=== PATIENT | male | born 1935 | race Caucasian/White ===

== ENCOUNTER 2017-08-20 14:26 | Inpatient (IN) | payer MEDICARE, BC ==
[~2017-08-20] VITALS: Ht 170.2 cm; Wt 76.4 kg
--- NOTE | 2017-08-20 15:10 | PHYS DOC ---
Past History Past Medical History: Hypertension, Other Past Surgical History: Other Alcohol Use: None Drug Use: None Adult General Chief Complaint Chief Complaint: PSYCH EVALUATION HPI HPI Patient is a 82 year old M who presents with paranoia. Victor M has a history of Alzheimer's. He states that he cannot stand thousand on the night. States that he will walk without assistance when he has to do. His called his primary care doctor's office today who advised him to come to the emergency room. He denies any other symptoms at this time. He has no other exacerbating or relieving factors. Review of Systems Review of Systems Constitutional: Denies fever or chills [] Eyes: Denies change in visual acuity, redness, or eye pain [] HENT: Denies nasal congestion or sore throat [] Respiratory: Denies cough or shortness of breath [] Cardiovascular: No additional information not addressed in HPI [] GI: Denies abdominal pain, nausea, vomiting, bloody stools or diarrhea [] : Denies dysuria or hematuria [] Musculoskeletal: Denies back pain or joint pain [] Integument: Denies rash or skin lesions [] Neurologic: Denies headache, focal weakness or sensory changes [] Endocrine: Denies polyuria or polydipsia [] All other systems were reviewed and found to be within normal limits, except as documented in this note. Family History Family History No pertinent family medical history was reported Current Medications Current Medications Current medications were reviewed Allergies Allergies No known allergies Physical Exam Physical Exam Constitutional: Well developed, well nourished, no acute distress, non-toxic appearance. [] HENT: Normocephalic, atraumatic Eyes: EOMI, conjunctiva normal, no discharge. [] Neck: Normal range of motion, no tenderness, supple, no stridor. [] Cardiovascular:Heart rate regular rhythm, Lungs & Thorax: Bilateral breath sounds clear to auscultation [] Abdomen: Bowel sounds normal, soft, no tenderness, no masses, no pulsatile masses. [] Skin: Warm, dry, no erythema, no rash. [] Back: No tenderness, no CVA tenderness. [] Extremities: No tenderness, no cyanosis, no clubbing, ROM intact, no edema. [] Neurologic: normal motor function, normal sensory function, no focal deficits noted. [] Psychologic: Deferred psychiatric evaluation Current Patient Data Vital Signs Vital Signs Date Time Temp Pulse Resp B/P (MAP) Pulse Ox O2 Delivery O2 Flow Rate FiO2 08/20/17 14:46 97.7 82 16 100 Room Air Lab Results Laboratory Tests Test 08/20/17 15:03 White Blood Count 9.4 x10^3/uL (4.0-11.0) Red Blood Count 4.66 x10^6/uL (4.30-5.70) Hemoglobin 13.6 g/dL (13.0-17.5) Hematocrit 42.1 % (39.0-53.0) Mean Corpuscular Volume 90 fL (79-100) Mean Corpuscular Hemoglobin 29 pg (25-35) Mean Corpuscular Hemoglobin Concent 32 g/dL (31-37) Red Cell Distribution Width 16.3 % (11.5-14.5) Platelet Count 399 x10^3/uL (140-400) Neutrophils (%) (Auto) 57 % (31-73) Lymphocytes (%) (Auto) 26 % (24-48) Monocytes (%) (Auto) 10 % (0-9) Eosinophils (%) (Auto) 6 % (0-3) Basophils (%) (Auto) 1 % (0-3) Neutrophils # (Auto) 5.3 x10^3uL (1.8-7.7) Lymphocytes # (Auto) 2.5 x10^3/uL (1.0-4.8) Monocytes # (Auto) 1.0 x10^3/uL (0.0-1.1) Eosinophils # (Auto) 0.6 x10^3/uL (0.0-0.7) Basophils # (Auto) 0.1 x10^3/uL (0.0-0.2) Sodium Level 144 mmol/L (136-145) Potassium Level 4.1 mmol/L (3.5-5.1) Chloride Level 109 mmol/L (98-107) Carbon Dioxide Level 31 mmol/L (21-32) Anion Gap 4 (6-14) Blood Urea Nitrogen 20 mg/dL (8-26) Creatinine 1.1 mg/dL (0.7-1.3) Estimated GFR (Cockcroft-Gault) 64.1 Glucose Level 81 mg/dL (70-99) Calcium Level 8.6 mg/dL (8.5-10.1) Magnesium Level 2.2 mg/dL (1.8-2.4) EKG EKG Normal sinus rhythm Radiology/Procedures Radiology/Procedures [] Course & Med Decision Making Course & Med Decision Making Pertinent Labs and Imaging studies reviewed. (See chart for details) [] Dragon Disclaimer Dragon Disclaimer This electronic medical record was generated, in whole or in part, using a voice recognition dictation system. Departure Departure: Impression: Primary Impression: Encounter for medical screening examination Disposition: ADMITTED INPATIENT Condition: STABLE Referrals: NON,STAFF (PCP) BRIAN ARANGO MD Aug 20, 2017 15:10
[2017-08-20 15:22] LABS: BASO # 0.1 x10^3/uL (0.0-0.2); BASO % 1 % (0-3); EOS # 0.6 x10^3/uL (0.0-0.7); EOS % 6 % (0-3); HEMATOCRIT 42.1 % (39.0-53.0); HEMOGLOBIN 13.6 g/dL (13.0-17.5); LYMPH # 2.5 x10^3/uL (1.0-4.8); LYMPH % 26 % (24-48); MEAN CORPUSCULAR HEMOGLOBIN 29 pg (25-35); MEAN CORPUSCULAR HGB CONC 32 g/dL (31-37); MEAN CORPUSCULAR VOLUME 90 fL (79-100); MONO % 10 % (0-9); NEUT # 5.3 x10^3uL (1.8-7.7); NEUT % 57 % (31-73); PLATELET COUNT 399 x10^3/uL (140-400); RED BLOOD COUNT 4.66 x10^6/uL (4.30-5.70); RED CELL DISTRIBUTION WIDTH 16.3 % (11.5-14.5); WHITE BLOOD COUNT 9.4 x10^3/uL (4.0-11.0)
[2017-08-20 15:28] LABS: CALCIUM 8.6 mg/dL (8.5-10.1); CREATININE 1.1 mg/dL (0.7-1.3); GFR 64.1; MAGNESIUM 2.2 mg/dL (1.8-2.4); POTASSIUM 4.1 mmol/L (3.5-5.1)
--- NOTE | 2017-08-20 16:02 | EKG ---
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
[2017-08-20 17:39] LABS: AMPHETAMINE/METHAMPHETAMINE NEG (NEG); BARBITURATES NEG (NEG); BENZODIAZEPINES POS (NEG); CANNABINOIDS NEG (NEG); COCAINE NEG (NEG); METHADONE NEG (NEG); OPIATES POS (NEG); PHENCYCLIDINE NEG (NEG)
[2017-08-20 17:50] LABS: BACTERIA,URINE 0 /HPF (0-FEW); BILIRUBIN,URINE NEG (NEG); CLARITY,URINE CLEAR; COLOR,URINE YELLOW; GLUCOSE,URINE NEG (NEG); NITRITE,URINE NEG (NEG); RBC,URINE 0 /HPF (0-2); UROBILINOGEN,URINE 0.2 mg/dL (0.2 mg/dL); WBC,URINE OCC /HPF (0-4)
[2017-08-20 17:51] LABS: SQUAMOUS EPITHELIAL CELL,UR OCC /LPF
[2017-08-20] MEDS ORDERED: MAGNESIUM HYDROXIDE 2,400 MG/30 ML ORAL.SUSP. PO PRN (18:30)
[2017-08-20] MEDS ORDERED: MAG HYDROX/AL HYDROX/SIMETH 30 ML ORAL.SUSP PO PRN (18:30)
[2017-08-20 18:33] VITALS: BP 156/82
[2017-08-20 18:58] LABS: ALBUMIN 3.5 g/dL (3.4-5.0); ALBUMIN/GLOBULIN RATIO 0.9 (1.0-1.7); CALCIUM 8.6 mg/dL (8.5-10.1); CREATININE 1.1 mg/dL (0.7-1.3); GFR 64.1; POTASSIUM 4.1 mmol/L (3.5-5.1); TOTAL BILIRUBIN 0.3 mg/dL (0.2-1.0); TOTAL PROTEIN 7.4 g/dL (6.4-8.2)
--- NOTE | 2017-08-20 20:08 | PDOC ---
Exam Note: Chris Note: Please also refer to the separate dictated note~for this date of service dictated separately.~Patient seen individually. Discussed the patient with Nursing staff reviewed the chart.~Reviewed interim history and current functioning. Reviewed vital signs,~Labs/ Radiology~and current medications noted below. Continue current treatment with the changes noted in the dictated addendum note Assessment: Vital Signs: Vital Signs Date Time Temp Pulse Resp B/P (MAP) Pulse Ox O2 Delivery O2 Flow Rate FiO2 08/20/17 18:33 97.7 62 18 156/82 (106) 99 Room Air Labs: Laboratory Tests Test 08/20/17 15:03 08/20/17 16:20 White Blood Count 9.4 x10^3/uL (4.0-11.0) Red Blood Count 4.66 x10^6/uL (4.30-5.70) Hemoglobin 13.6 g/dL (13.0-17.5) Hematocrit 42.1 % (39.0-53.0) Mean Corpuscular Volume 90 fL (79-100) Mean Corpuscular Hemoglobin 29 pg (25-35) Mean Corpuscular Hemoglobin Concent 32 g/dL (31-37) Red Cell Distribution Width 16.3 % (11.5-14.5) H Platelet Count 399 x10^3/uL (140-400) Neutrophils (%) (Auto) 57 % (31-73) Lymphocytes (%) (Auto) 26 % (24-48) Monocytes (%) (Auto) 10 % (0-9) H Eosinophils (%) (Auto) 6 % (0-3) H Basophils (%) (Auto) 1 % (0-3) Neutrophils # (Auto) 5.3 x10^3uL (1.8-7.7) Lymphocytes # (Auto) 2.5 x10^3/uL (1.0-4.8) Monocytes # (Auto) 1.0 x10^3/uL (0.0-1.1) Eosinophils # (Auto) 0.6 x10^3/uL (0.0-0.7) Basophils # (Auto) 0.1 x10^3/uL (0.0-0.2) Sodium Level 144 mmol/L (136-145) Potassium Level 4.1 mmol/L (3.5-5.1) Chloride Level 108 mmol/L (98-107) H Carbon Dioxide Level 30 mmol/L (21-32) Anion Gap 6 (6-14) Blood Urea Nitrogen 20 mg/dL (8-26) Creatinine 1.1 mg/dL (0.7-1.3) Estimated GFR (Cockcroft-Gault) 64.1 BUN/Creatinine Ratio 18 (6-20) Glucose Level 81 mg/dL (70-99) Calcium Level 8.6 mg/dL (8.5-10.1) Magnesium Level 2.2 mg/dL (1.8-2.4) Total Bilirubin 0.3 mg/dL (0.2-1.0) Aspartate Amino Transferase (AST) 28 U/L (15-37) Alanine Aminotransferase (ALT) 27 U/L (16-63) Alkaline Phosphatase 75 U/L (46-116) Total Protein 7.4 g/dL (6.4-8.2) Albumin 3.5 g/dL (3.4-5.0) Albumin/Globulin Ratio 0.9 (1.0-1.7) L Urine Collection Type Unknown Urine Color Yellow Urine Clarity Clear Urine pH 5.5 Urine Specific [place] >=1.030 Urine Protein Neg (NEG-TRACE) Urine Glucose (UA) Neg mg/dL (NEG) Urine Ketones (Stick) Trace mg/dL (NEG) Urine Blood Neg (NEG) Urine Nitrite Neg (NEG) Urine Bilirubin Neg (NEG) Urine Urobilinogen Dipstick 0.2 mg/dL (0.2 mg/dL) Urine Leukocyte Esterase Neg (NEG) Urine RBC 0 /HPF (0-2) Urine WBC Occ /HPF (0-4) Urine Squamous Epithelial Cells Occ /LPF Urine Bacteria 0 /HPF (0-FEW) Urine Opiates Screen Pos (NEG) Urine Methadone Screen Neg (NEG) Urine Barbiturates Neg (NEG) Urine Phencyclidine Screen Neg (NEG) Urine Amphetamine/Methamphetamine Neg (NEG) Urine Benzodiazepines Screen Pos (NEG) Urine Cocaine Screen Neg (NEG) Urine Cannabinoids Screen Neg (NEG) Urine Ethyl Alcohol Neg (NEG) Current Medications: Meds: Current Medications Acetaminophen (Tylenol) 650 mg PRN Q6HRS PRN PO PAIN / TEMP; Start 08/20/17 at 18:30 Al Hydroxide/Mg Hydroxide (Mylanta Plus Xs) 15 ml PRN AFTMEALHC PRN PO DYSPEPSIA; Start 08/20/17 at 18:30 Magnesium Hydroxide (Milk Of Magnesia) 2,400 mg PRN QHS PRN PO CONSTIPATION; Start 08/20/17 at 18:30 I have reviewed the current psychotropics carefully including drug interactions. Risk benefit ratio favors no change other than as noted in my dictated progress note. Diagnosis: Problems: (1) Encounter for medical screening examination (2) Delusion (3) Confusion (4) Suicidal ideation KRYSTAL HAHN MD Aug 20, 2017 20:08
[2017-08-20] MEDS ORDERED: RIVA10TA PO (20:27)
[2017-08-20] MEDS ORDERED: CHOL2000 PO (20:27)
[2017-08-20] MEDS ORDERED: HYDR-2762 PO (20:27)
[2017-08-20] MEDS ORDERED: QUET25TA5 PO (20:27)
[2017-08-20] MEDS ORDERED: LOSA25TA4 PO (20:27)
[2017-08-20] MEDS ORDERED: VITA200T6 PO (20:27)
[2017-08-20] MEDS ORDERED: RIVA1PAT23 TD (20:27)
[2017-08-20] MEDS ORDERED: METO25TA4 PO (20:27)
[2017-08-20] MEDS ORDERED: IBUP400T18 PO (20:27)
[2017-08-20] MEDS ORDERED: MEMA10TA PO (20:27)
[2017-08-20] MEDS ORDERED: LATA2.5D2 OU (20:27)
[2017-08-20] MEDS ORDERED: ALBU2.5V5 NEB (20:27)
[2017-08-20] MEDS ORDERED: ASPI-630 PO (20:27)
[2017-08-20] MEDS ORDERED: DIAZ2TAB3 PO (20:35)
[2017-08-20] MEDS ORDERED: ALBUTEROL SULFATE 2.5 MG/3 ML NEBU. NEB PRN (21:15)
[2017-08-20] MEDS: IBUPROFEN 200 MG TABLET PO SCH ×2 (22:00→22:26)
[2017-08-20] MEDS: QUEtiapine 25 MG TABLET. PO PRN (22:26)
[2017-08-21 02:08] LABS: T3 TOTAL 126 ng/dL (71-180); THYROXINE 5.7 ug/dL (4.5-12.0)
[2017-08-21 06:07] VITALS: BP 110/58
[2017-08-21 06:09] LABS: HEMOGLOBIN A1C 5.1 % (4.8-5.6)
[2017-08-21] MEDS: RIVAROXABAN 10 MG TABLET. PO SCH (07:59)
[2017-08-21] MEDS: LOSARTAN 25 MG TABLET. PO SCH (07:59)
[2017-08-21] MEDS: CHOLECALCIFEROL (VITAMIN D3) 1,000 UNIT TABLET PO SCH (07:59)
[2017-08-21] MEDS: ASPIRIN 81 MG TAB.CHEW PO SCH (07:59)
[2017-08-21] MEDS: RIVASTIGMINE 9.5MG PATCH. TD SCH (08:00)
[2017-08-21] MEDS: MEMANTINE 10 MG TABLET. PO SCH (08:00)
[2017-08-21] MEDS: IBUPROFEN 200 MG TABLET PO SCH ×2 (08:00→20:44)
[2017-08-21] MEDS: METOPROLOL TART IMMED RELEASE 25 MG TABLET PO SCH (08:00)
[2017-08-21] MEDS: LATANOPROST 0.005% OPHTH SOLUTION 2.5ML BOTTLE. OU SCH ×2 (08:01→20:41)
[2017-08-21 10:35] LABS: THYROID STIM HORMONE (TSH) 2.388 uIU/mL (0.358-3.740)
[2017-08-21] MEDS: VITAMIN E 200 UNIT CAPSULE. PO SCH (12:36)
[2017-08-21] MEDS ORDERED: diazePAM 2 MG TABLET PO SCH (14:00)
[2017-08-21 15:46] VITALS: BP 125/71
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
--- NOTE | 2017-08-21 20:06 | PDOC ---
Exam Note: Chris Note: Please also refer to the separate dictated note~for this date of service dictated separately.~Patient seen individually. Discussed the patient with Nursing staff reviewed the chart.~Reviewed interim history and current functioning. Reviewed vital signs,~Labs/ Radiology~and current medications noted below. Continue current treatment with the changes noted in the dictated addendum note Assessment: Vital Signs: Vital Signs Date Time Temp Pulse Resp B/P (MAP) Pulse Ox O2 Delivery O2 Flow Rate FiO2 08/21/17 15:46 98.3 94 20 125/71 (89) 95 08/20/17 18:33 Room Air I&O Intake and Output 08/21/17 07:00 Intake Total 120 ml Balance 120 ml Intake Oral 120 ml Current Medications: Meds: Current Medications Acetaminophen (Tylenol) 650 mg PRN Q6HRS PRN PO PAIN / TEMP; Start 08/20/17 at 18:30 Al Hydroxide/Mg Hydroxide (Mylanta Plus Xs) 15 ml PRN AFTMEALHC PRN PO DYSPEPSIA; Start 08/20/17 at 18:30 Magnesium Hydroxide (Milk Of Magnesia) 2,400 mg PRN QHS PRN PO CONSTIPATION; Start 08/20/17 at 18:30 Albuterol Sulfate (Ventolin) 2.5 mg PRN DAILY PRN NEB SHORTNESS OF BREATH; Start 08/20/17 at 21:15 Aspirin (Children'S Aspirin) 81 mg DAILY PO Last administered on 08/21/17at 07: 59; Start 08/21/17 at 09:00 Acetaminophen/ Hydrocodone Bitart (Lortab 7.5/325) 1 tab PRN TID PRN PO PAIN; Start 08/20/17 at 21:15 Ibuprofen (Motrin) 200 mg BID PO ; Start 08/20/17 at 22:00 Latanoprost (Xalatan) 1 drop DAILY OU Last administered on 08/21/17at 08:01; Start 08/21/17 at 09:00 Losartan Potassium (Cozaar) 25 mg DAILY PO ; Start 08/21/17 at 09:00 Metoprolol Tartrate (Lopressor) 25 mg DAILY PO ; Start 08/21/17 at 09:00 Rivaroxaban (Xarelto) 20 mg DAILY PO Last administered on 08/21/17at 07:59; Start 08/21/17 at 09:00 Rivastigmine (Exelon) 1 patch DAILY TD Last administered on 08/21/17at 08:00; Start 08/21/17 at 09:00 Vitamin D (Vitamin D3) 2,000 unit DAILY PO Last administered on 08/21/17at 07:59 ; Start 08/21/17 at 09:00 Vitamin E 200 unit DAILY PO Last administered on 08/21/17at 12:36; Start at 09:00 Memantine (Namenda) 10 mg DAILY PO Last administered on 08/21/17at 08:00; Start 08/21/17 at 09:00 Quetiapine Fumarate (SEROquel) 25 mg PRN QHS PRN PO INSOMNIA Last administered on 08/20/17at 22:26; Start 08/20/17 at 21:30 Diazepam (Valium) 1.5 mg TID PO Last administered on 08/21/17at 14:06; Start at 14:00; Stop 08/21/17 at 18:51; Status DC Diazepam (Valium) 1 mg TID PO ; Start 08/26/17 at 09:00; Stop 08/26/17 at 09:00 ; Status DC Diazepam (Valium) 0.5 mg TID PO ; Start 08/31/17 at 09:00; Stop 08/31/17 at 09: 00; Status DC Mirtazapine (Remeron) 7.5 mg QHS PO ; Start 08/21/17 at 21:00 Diazepam (Valium) 2 mg BID@1400,2100 PO ; Start 08/21/17 at 21:00 Diazepam (Valium) 1.5 mg DAILYWBKFT PO ; Start 08/22/17 at 08:00; Stop 08/27/17 at 07:59 Active Scripts Active Reported Diazepam 2 Mg Tablet 2 Mg PO TID Xarelto (Rivaroxaban) 10 Mg Tablet 20 Mg PO DAILY Vitamin E (Vitamin E Mixed) 200 Unit Tablet 200 Unit PO DAILY Vitamin D (Cholecalciferol (Vitamin D3)) 2,000 Unit Capsule 2,000 Unit PO DAILY Seroquel (Quetiapine Fumarate) 25 Mg Tablet 25 Mg PO PRN QHS PRN Hydrocodone-Apap 7.5-325 (Hydrocodone Bit/Acetaminophen) 1 Each Tablet 1 Tab PO TID PRN EXELON 9.5mg/24hr (Rivastigmine) 1 Each Patch.td24 1 Patch TD DAILY Namenda (Memantine Hcl) 10 Mg Tablet 10 Mg PO DAILY Metoprolol Tartrate 25 Mg Tablet 25 Mg PO DAILY Losartan Potassium 25 Mg Tablet 25 Mg PO DAILY Xalatan (Latanoprost) 2.5 Ml Drops 1 Drp OU DAILY Ibuprofen 400 Mg Tablet 200 Mg PO BID Aspirin 81 Mg Tab.chew 81 Mg PO DAILY Albuterol Sulfate Neb Soln (Albuterol Sulfate) 2.5 Mg/3 Ml Vial.neb 2.5 Mg NEB PRN DAILY PRN I have reviewed the current psychotropics carefully including drug interactions. Risk benefit ratio favors no change other than as noted in my dictated progress note. 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
[2017-08-21] MEDS: diazePAM 2 MG TABLET PO SCH (20:43)
[2017-08-21] MEDS ORDERED: MIRTAZAPINE 7.5 MG TABLET. PO SCH (21:00)
[2017-08-22 05:48] VITALS: BP 129/65
[2017-08-22] MEDS: RIVASTIGMINE 9.5MG PATCH. TD SCH (07:53)
[2017-08-22] MEDS: IBUPROFEN 200 MG TABLET PO SCH ×2 (07:54→20:09)
[2017-08-22] MEDS: RIVAROXABAN 10 MG TABLET. PO SCH (07:54)
[2017-08-22] MEDS: ASPIRIN 81 MG TAB.CHEW PO SCH (07:54)
[2017-08-22] MEDS: CHOLECALCIFEROL (VITAMIN D3) 1,000 UNIT TABLET PO SCH (07:55)
[2017-08-22] MEDS: LOSARTAN 25 MG TABLET. PO SCH (07:55)
[2017-08-22] MEDS: METOPROLOL TART IMMED RELEASE 25 MG TABLET PO SCH (07:55)
[2017-08-22] MEDS: VITAMIN E 200 UNIT CAPSULE. PO SCH (07:55)
[2017-08-22] MEDS: MEMANTINE 10 MG TABLET. PO SCH (07:55)
[2017-08-22] MEDS: LATANOPROST 0.005% OPHTH SOLUTION 2.5ML BOTTLE. OU SCH (07:56)
[2017-08-22] MEDS: diazePAM 2 MG TABLET PO SCH ×3 (07:58→20:01)
[2017-08-22 16:47] VITALS: BP 119/80
--- NOTE | 2017-08-22 19:52 | PDOC ---
Exam Note: Chris Note: Please also refer to the separate dictated note~for this date of service dictated separately.~Patient seen individually. Discussed the patient with Nursing staff reviewed the chart.~Reviewed interim history and current functioning. Reviewed vital signs,~Labs/ Radiology~and current medications noted below. Continue current treatment with the changes noted in the dictated addendum note Assessment: Vital Signs: Vital Signs Date Time Temp Pulse Resp B/P (MAP) Pulse Ox O2 Delivery O2 Flow Rate FiO2 08/22/17 16:47 99.4 97 20 119/80 (93) 95 08/20/17 18:33 Room Air I&O Intake and Output 08/22/17 07:00 Intake Total 360 ml Balance 360 ml Intake Oral 360 ml Current Medications: Meds: Current Medications Acetaminophen (Tylenol) 650 mg PRN Q6HRS PRN PO PAIN / TEMP; Start 08/20/17 at 18:30 Al Hydroxide/Mg Hydroxide (Mylanta Plus Xs) 15 ml PRN AFTMEALHC PRN PO DYSPEPSIA; Start 08/20/17 at 18:30 Magnesium Hydroxide (Milk Of Magnesia) 2,400 mg PRN QHS PRN PO CONSTIPATION; Start 08/20/17 at 18:30 Albuterol Sulfate (Ventolin) 2.5 mg PRN DAILY PRN NEB SHORTNESS OF BREATH; Start 08/20/17 at 21:15 Aspirin (Children'S Aspirin) 81 mg DAILY PO Last administered on 08/22/17at 07: 54; Start 08/21/17 at 09:00 Acetaminophen/ Hydrocodone Bitart (Lortab 7.5/325) 1 tab PRN TID PRN PO PAIN; Start 08/20/17 at 21:15 Ibuprofen (Motrin) 200 mg BID PO Last administered on 08/22/17at 07:54; Start at 22:00 Latanoprost (Xalatan) 1 drop DAILY OU Last administered on 08/22/17at 07:56; Start 08/21/17 at 09:00 Losartan Potassium (Cozaar) 25 mg DAILY PO ; Start 08/21/17 at 09:00 Metoprolol Tartrate (Lopressor) 25 mg DAILY PO ; Start 08/21/17 at 09:00 Rivaroxaban (Xarelto) 20 mg DAILY PO Last administered on 08/22/17at 07:54; Start 08/21/17 at 09:00 Rivastigmine (Exelon) 1 patch DAILY TD Last administered on 08/22/17at 07:53; Start 08/21/17 at 09:00 Vitamin D (Vitamin D3) 2,000 unit DAILY PO Last administered on 08/22/17at 07:55 ; Start 08/21/17 at 09:00 Vitamin E 200 unit DAILY PO Last administered on 08/22/17at 07:55; Start at 09:00 Memantine (Namenda) 10 mg DAILY PO Last administered on 08/22/17at 07:55; Start 08/21/17 at 09:00 Quetiapine Fumarate (SEROquel) 25 mg PRN QHS PRN PO INSOMNIA Last administered on 08/20/17at 22:26; Start 08/20/17 at 21:30 Diazepam (Valium) 1.5 mg TID PO Last administered on 08/21/17at 14:06; Start at 14:00; Stop 08/21/17 at 18:51; Status DC Diazepam (Valium) 1 mg TID PO ; Start 08/26/17 at 09:00; Stop 08/26/17 at 09:00 ; Status DC Diazepam (Valium) 0.5 mg TID PO ; Start 08/31/17 at 09:00; Stop 08/31/17 at 09: 00; Status DC Mirtazapine (Remeron) 7.5 mg QHS PO Last administered on 08/21/17at 20:43; Start 08/21/17 at 21:00; Stop 08/22/17 at 18:32; Status DC Diazepam (Valium) 2 mg BID@1400,2100 PO Last administered on 08/22/17at 14:05; Start 08/21/17 at 21:00; Stop 08/27/17 at 09:00 Diazepam (Valium) 1.5 mg DAILYWBKFT PO Last administered on 08/22/17at 07:58; Start 08/22/17 at 08:00; Stop 08/27/17 at 07:59 Diazepam (Valium) 1.5 mg BID92 PO ; Start 08/27/17 at 09:00; Stop 09/01/17 at 08 :59 Diazepam (Valium) 2 mg QHS PO ; Start 08/27/17 at 21:00; Stop 09/01/17 at 20:59 Mirtazapine (Remeron) 15 mg QHS PO ; Start 08/22/17 at 21:00 Quetiapine Fumarate (SEROquel) 12.5 mg TID@0900,1300,1700 PO ; Start 08/23/17 at 09:00 Melatonin 3 mg QHS PO ; Start 08/22/17 at 21:00 Olanzapine (ZyPREXA ZYDIS) 2.5 mg PRN Q2HR PRN PO ANXIETY / AGITATION; Start at 18:30 Active Scripts Active Reported Diazepam 2 Mg Tablet 2 Mg PO TID Xarelto (Rivaroxaban) 10 Mg Tablet 20 Mg PO DAILY Vitamin E (Vitamin E Mixed) 200 Unit Tablet 200 Unit PO DAILY Vitamin D (Cholecalciferol (Vitamin D3)) 2,000 Unit Capsule 2,000 Unit PO DAILY Seroquel (Quetiapine Fumarate) 25 Mg Tablet 25 Mg PO PRN QHS PRN Hydrocodone-Apap 7.5-325 (Hydrocodone Bit/Acetaminophen) 1 Each Tablet 1 Tab PO TID PRN EXELON 9.5mg/24hr (Rivastigmine) 1 Each Patch.td24 1 Patch TD DAILY Namenda (Memantine Hcl) 10 Mg Tablet 10 Mg PO DAILY Metoprolol Tartrate 25 Mg Tablet 25 Mg PO DAILY Losartan Potassium 25 Mg Tablet 25 Mg PO DAILY Xalatan (Latanoprost) 2.5 Ml Drops 1 Drp OU DAILY Ibuprofen 400 Mg Tablet 200 Mg PO BID Aspirin 81 Mg Tab.chew 81 Mg PO DAILY Albuterol Sulfate Neb Soln (Albuterol Sulfate) 2.5 Mg/3 Ml Vial.neb 2.5 Mg NEB PRN DAILY PRN I have reviewed the current psychotropics carefully including drug interactions. Risk benefit ratio favors no change other than as noted in my dictated progress note. 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
[2017-08-22] MEDS: MELATONIN 3 MG TABLET PO SCH (20:00)
[2017-08-22] MEDS: MIRTAZAPINE 15 MG TABLET PO SCH (20:01)
[2017-08-22] MEDS: QUEtiapine 25 MG TABLET. PO PRN (20:01)
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
[2017-08-23 02:48] VITALS: BP 141/67
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
[2017-08-23] MEDS: RIVAROXABAN 10 MG TABLET. PO SCH (10:36)
[2017-08-23] MEDS: diazePAM 2 MG TABLET PO SCH ×3 (10:36→20:31)
[2017-08-23] MEDS: LOSARTAN 25 MG TABLET. PO SCH (10:36)
[2017-08-23] MEDS: MEMANTINE 10 MG TABLET. PO SCH (10:36)
[2017-08-23] MEDS: CHOLECALCIFEROL (VITAMIN D3) 1,000 UNIT TABLET PO SCH (10:36)
[2017-08-23] MEDS: ASPIRIN 81 MG TAB.CHEW PO SCH (10:36)
[2017-08-23] MEDS: RIVASTIGMINE 9.5MG PATCH. TD SCH (10:37)
[2017-08-23] MEDS: LATANOPROST 0.005% OPHTH SOLUTION 2.5ML BOTTLE. OU SCH (10:37)
[2017-08-23] MEDS: VITAMIN E 200 UNIT CAPSULE. PO SCH (10:37)
[2017-08-23] MEDS: METOPROLOL TART IMMED RELEASE 25 MG TABLET PO SCH (10:37)
[2017-08-23] MEDS: QUEtiapine 25 MG TABLET. PO SCH ×3 (10:41→17:21)
[2017-08-23 16:05] VITALS: BP 134/72
--- NOTE | 2017-08-23 20:10 | PDOC ---
Exam Note: Chris Note: Please also refer to the separate dictated note~for this date of service dictated separately.~Patient seen individually. Discussed the patient with Nursing staff reviewed the chart.~Reviewed interim history and current functioning. Reviewed vital signs,~Labs/ Radiology~and current medications noted below. Continue current treatment with the changes noted in the dictated addendum note Assessment: Vital Signs: Vital Signs Date Time Temp Pulse Resp B/P (MAP) Pulse Ox O2 Delivery O2 Flow Rate FiO2 08/23/17 16:05 97.5 58 18 134/72 (92) 97 08/20/17 18:33 Room Air I&O Intake and Output 08/23/17 07:00 Intake Total 120 ml Balance 120 ml Intake Oral 120 ml Current Medications: Meds: Current Medications Acetaminophen (Tylenol) 650 mg PRN Q6HRS PRN PO PAIN / TEMP; Start 08/20/17 at 18:30 Al Hydroxide/Mg Hydroxide (Mylanta Plus Xs) 15 ml PRN AFTMEALHC PRN PO DYSPEPSIA; Start 08/20/17 at 18:30 Magnesium Hydroxide (Milk Of Magnesia) 2,400 mg PRN QHS PRN PO CONSTIPATION; Start 08/20/17 at 18:30 Albuterol Sulfate (Ventolin) 2.5 mg PRN DAILY PRN NEB SHORTNESS OF BREATH; Start 08/20/17 at 21:15 Aspirin (Children'S Aspirin) 81 mg DAILY PO Last administered on 08/23/17at 10: 36; Start 08/21/17 at 09:00 Acetaminophen/ Hydrocodone Bitart (Lortab 7.5/325) 1 tab PRN TID PRN PO PAIN; Start 08/20/17 at 21:15 Ibuprofen (Motrin) 200 mg BID PO Last administered on 08/22/17at 07:54; Start at 22:00; Stop 08/23/17 at 07:21; Status DC Latanoprost (Xalatan) 1 drop DAILY OU Last administered on 08/23/17at 10:37; Start 08/21/17 at 09:00 Losartan Potassium (Cozaar) 25 mg DAILY PO Last administered on 08/23/17at 10:36 ; Start 08/21/17 at 09:00 Metoprolol Tartrate (Lopressor) 25 mg DAILY PO Last administered on 08/23/17 10:37; Start 08/21/17 at 09:00 Rivaroxaban (Xarelto) 20 mg DAILY PO Last administered on 08/23/17 10:36; Start 08/21/17 at 09:00 Rivastigmine (Exelon) 1 patch DAILY TD Last administered on 08/23/17 10:37; Start 08/21/17 at 09:00 Vitamin D (Vitamin D3) 2,000 unit DAILY PO Last administered on 08/23/17at 10:36 ; Start 08/21/17 at 09:00 Vitamin E 200 unit DAILY PO Last administered on 08/23/17 10:37; Start at 09:00 Memantine (Namenda) 10 mg DAILY PO Last administered on 08/23/17 10:36; Start 08/21/17 at 09:00 Quetiapine Fumarate (SEROquel) 25 mg PRN QHS PRN PO INSOMNIA Last administered on 08/22/17 20:01; Start 08/20/17 at 21:30 Diazepam (Valium) 1.5 mg TID PO Last administered on 08/21/17at 14:06; Start at 14:00; Stop 08/21/17 at 18:51; Status DC Diazepam (Valium) 1 mg TID PO ; Start 08/26/17 at 09:00; Stop 08/26/17 at 09:00 ; Status DC Diazepam (Valium) 0.5 mg TID PO ; Start 08/31/17 at 09:00; Stop 08/31/17 at 09: 00; Status DC Mirtazapine (Remeron) 7.5 mg QHS PO Last administered on 08/21/17at 20:43; Start 08/21/17 at 21:00; Stop 08/22/17 at 18:32; Status DC Diazepam (Valium) 2 mg BID@1400,2100 PO Last administered on 08/22/17at 20:01; Start 08/21/17 at 21:00; Stop 08/27/17 at 09:00 Diazepam (Valium) 1.5 mg DAILYWBKFT PO Last administered on 08/23/17at 10:36; Start 08/22/17 at 08:00; Stop 08/27/17 at 07:59 Diazepam (Valium) 1.5 mg BID92 PO ; Start 08/27/17 at 09:00; Stop 09/01/17 at 08 :59 Diazepam (Valium) 2 mg QHS PO ; Start 08/27/17 at 21:00; Stop 09/01/17 at 20:59 Mirtazapine (Remeron) 15 mg QHS PO Last administered on 08/22/17at 20:01; Start 08/22/17 at 21:00 Quetiapine Fumarate (SEROquel) 12.5 mg TID@0900,1300,1700 PO Last administered on 08/23/17at 17:21; Start 08/23/17 at 09:00 Melatonin 3 mg QHS PO Last administered on 08/22/17at 20:00; Start 08/22/17 at 21:00 Olanzapine (ZyPREXA ZYDIS) 2.5 mg PRN Q2HR PRN PO ANXIETY / AGITATION; Start at 18:30 Active Scripts Active Reported Diazepam 2 Mg Tablet 2 Mg PO TID Xarelto (Rivaroxaban) 10 Mg Tablet 20 Mg PO DAILY Vitamin E (Vitamin E Mixed) 200 Unit Tablet 200 Unit PO DAILY Vitamin D (Cholecalciferol (Vitamin D3)) 2,000 Unit Capsule 2,000 Unit PO DAILY Seroquel (Quetiapine Fumarate) 25 Mg Tablet 25 Mg PO PRN QHS PRN Hydrocodone-Apap 7.5-325 (Hydrocodone Bit/Acetaminophen) 1 Each Tablet 1 Tab PO TID PRN EXELON 9.5mg/24hr (Rivastigmine) 1 Each Patch.td24 1 Patch TD DAILY Namenda (Memantine Hcl) 10 Mg Tablet 10 Mg PO DAILY Metoprolol Tartrate 25 Mg Tablet 25 Mg PO DAILY Losartan Potassium 25 Mg Tablet 25 Mg PO DAILY Xalatan (Latanoprost) 2.5 Ml Drops 1 Drp OU DAILY Ibuprofen 400 Mg Tablet 200 Mg PO BID Aspirin 81 Mg Tab.chew 81 Mg PO DAILY Albuterol Sulfate Neb Soln (Albuterol Sulfate) 2.5 Mg/3 Ml Vial.neb 2.5 Mg NEB PRN DAILY PRN I have reviewed the current psychotropics carefully including drug interactions. Risk benefit ratio favors no change other than as noted in my dictated progress note. Diagnosis: Problems: (1) Delusion (2) Confusion (3) Suicidal ideation (4) Anxiety disorder (5) Dementia in Alzheimer's disease with depression (6) Dementia in Alzheimer's disease with delusions (7) Dementia, vascular, with delusions (8) Dementia, vascular, with depression (9) Impulse control disorder KRYSTAL HAHN MD Aug 23, 2017 20:09
[2017-08-23] MEDS: MIRTAZAPINE 15 MG TABLET PO SCH (20:30)
[2017-08-23] MEDS: MELATONIN 3 MG TABLET PO SCH (20:30)
[2017-08-24 06:14] VITALS: BP 135/50
[2017-08-24] MEDS: ACETAMINOPHEN 325 MG TABLET PO PRN (07:11)
[2017-08-24] MEDS: RIVASTIGMINE 9.5MG PATCH. TD SCH (07:58)
[2017-08-24] MEDS: QUEtiapine 25 MG TABLET. PO SCH ×3 (07:58→16:49)
[2017-08-24] MEDS: RIVAROXABAN 10 MG TABLET. PO SCH (07:58)
[2017-08-24] MEDS: VITAMIN E 200 UNIT CAPSULE. PO SCH (07:58)
[2017-08-24] MEDS: CHOLECALCIFEROL (VITAMIN D3) 1,000 UNIT TABLET PO SCH (07:58)
[2017-08-24] MEDS: METOPROLOL TART IMMED RELEASE 25 MG TABLET PO SCH (07:59)
[2017-08-24] MEDS: ASPIRIN 81 MG TAB.CHEW PO SCH (07:59)
[2017-08-24] MEDS: LOSARTAN 25 MG TABLET. PO SCH (07:59)
[2017-08-24] MEDS: MEMANTINE 10 MG TABLET. PO SCH (07:59)
[2017-08-24] MEDS: diazePAM 2 MG TABLET PO SCH ×3 (08:00→19:33)
[2017-08-24] MEDS: LATANOPROST 0.005% OPHTH SOLUTION 2.5ML BOTTLE. OU SCH (08:00)
[2017-08-24 16:22] VITALS: BP 154/78
[2017-08-24] MEDS: MELATONIN 3 MG TABLET PO SCH (19:33)
[2017-08-24] MEDS: AMITRIPTYLINE HCL 25 MG TABLET PO SCH (19:33)
--- NOTE | 2017-08-24 20:12 | PDOC ---
Exam Note: Chris Note: Please also refer to the separate dictated note~for this date of service dictated separately.~Patient seen individually. Discussed the patient with Nursing staff reviewed the chart.~Reviewed interim history and current functioning. Reviewed vital signs,~Labs/ Radiology~and current medications noted below. Continue current treatment with the changes noted in the dictated addendum note Assessment: Vital Signs: Vital Signs Date Time Temp Pulse Resp B/P (MAP) Pulse Ox O2 Delivery O2 Flow Rate FiO2 08/24/17 16:22 98.5 72 18 154/78 (103) 95 08/20/17 18:33 Room Air I&O Intake and Output 08/24/17 07:00 Intake Total 360 ml Balance 360 ml Intake Oral 360 ml Current Medications: Meds: Current Medications Acetaminophen (Tylenol) 650 mg PRN Q6HRS PRN PO PAIN / TEMP Last administered on 08/24/17at 07:11; Start 08/20/17 at 18:30 Al Hydroxide/Mg Hydroxide (Mylanta Plus Xs) 15 ml PRN AFTMEALHC PRN PO DYSPEPSIA; Start 08/20/17 at 18:30 Magnesium Hydroxide (Milk Of Magnesia) 2,400 mg PRN QHS PRN PO CONSTIPATION; Start 08/20/17 at 18:30 Albuterol Sulfate (Ventolin) 2.5 mg PRN DAILY PRN NEB SHORTNESS OF BREATH; Start 08/20/17 at 21:15 Aspirin (Children'S Aspirin) 81 mg DAILY PO Last administered on 08/24/17at 07: 59; Start 08/21/17 at 09:00 Acetaminophen/ Hydrocodone Bitart (Lortab 7.5/325) 1 tab PRN TID PRN PO PAIN; Start 08/20/17 at 21:15 Ibuprofen (Motrin) 200 mg BID PO Last administered on 08/22/17at 07:54; Start at 22:00; Stop 08/23/17 at 07:21; Status DC Latanoprost (Xalatan) 1 drop DAILY OU Last administered on 08/24/17at 08:00; Start 08/21/17 at 09:00 Losartan Potassium (Cozaar) 25 mg DAILY PO Last administered on 08/24/17at 07:59 ; Start 08/21/17 at 09:00 Metoprolol Tartrate (Lopressor) 25 mg DAILY PO Last administered on 08/24/17at 07:59; Start 08/21/17 at 09:00 Rivaroxaban (Xarelto) 20 mg DAILY PO Last administered on 08/24/17at 07:58; Start 08/21/17 at 09:00 Rivastigmine (Exelon) 1 patch DAILY TD Last administered on 08/24/17at 07:58; Start 08/21/17 at 09:00 Vitamin D (Vitamin D3) 2,000 unit DAILY PO Last administered on 08/24/17at 07:58 ; Start 08/21/17 at 09:00 Vitamin E 200 unit DAILY PO Last administered on 08/24/17at 07:58; Start at 09:00 Memantine (Namenda) 10 mg DAILY PO Last administered on 08/24/17at 07:59; Start 08/21/17 at 09:00 Quetiapine Fumarate (SEROquel) 25 mg PRN QHS PRN PO INSOMNIA Last administered on 08/22/17at 20:01; Start 08/20/17 at 21:30 Diazepam (Valium) 1.5 mg TID PO Last administered on 08/21/17at 14:06; Start at 14:00; Stop 08/21/17 at 18:51; Status DC Diazepam (Valium) 1 mg TID PO ; Start 08/26/17 at 09:00; Stop 08/26/17 at 09:00 ; Status DC Diazepam (Valium) 0.5 mg TID PO ; Start 08/31/17 at 09:00; Stop 08/31/17 at 09: 00; Status DC Mirtazapine (Remeron) 7.5 mg QHS PO Last administered on 08/21/17at 20:43; Start 08/21/17 at 21:00; Stop 08/22/17 at 18:32; Status DC Diazepam (Valium) 2 mg BID@1400,2100 PO Last administered on 08/24/17at 19:33; Start 08/21/17 at 21:00; Stop 08/27/17 at 09:00 Diazepam (Valium) 1.5 mg DAILYWBKFT PO Last administered on 08/24/17at 08:00; Start 08/22/17 at 08:00; Stop 08/27/17 at 07:59 Diazepam (Valium) 1.5 mg BID92 PO ; Start 08/27/17 at 09:00; Stop 09/01/17 at 08 :59 Diazepam (Valium) 2 mg QHS PO ; Start 08/27/17 at 21:00; Stop 09/01/17 at 20:59 Mirtazapine (Remeron) 15 mg QHS PO Last administered on 08/23/17at 20:30; Start 08/22/17 at 21:00; Stop 08/24/17 at 18:02; Status DC Quetiapine Fumarate (SEROquel) 12.5 mg TID@0900,1300,1700 PO Last administered on 08/24/17at 16:49; Start 08/23/17 at 09:00 Melatonin 3 mg QHS PO Last administered on 08/24/17at 19:33; Start 08/22/17 at 21:00 Olanzapine (ZyPREXA ZYDIS) 2.5 mg PRN Q2HR PRN PO ANXIETY / AGITATION; Start at 18:30 Amitriptyline HCl (Elavil) 25 mg QHS PO Last administered on 08/24/17at 19:33; Start 08/24/17 at 21:00 Active Scripts Active Reported Diazepam 2 Mg Tablet 2 Mg PO TID Xarelto (Rivaroxaban) 10 Mg Tablet 20 Mg PO DAILY Vitamin E (Vitamin E Mixed) 200 Unit Tablet 200 Unit PO DAILY Vitamin D (Cholecalciferol (Vitamin D3)) 2,000 Unit Capsule 2,000 Unit PO DAILY Seroquel (Quetiapine Fumarate) 25 Mg Tablet 25 Mg PO PRN QHS PRN Hydrocodone-Apap 7.5-325 (Hydrocodone Bit/Acetaminophen) 1 Each Tablet 1 Tab PO TID PRN EXELON 9.5mg/24hr (Rivastigmine) 1 Each Patch.td24 1 Patch TD DAILY Namenda (Memantine Hcl) 10 Mg Tablet 10 Mg PO DAILY Metoprolol Tartrate 25 Mg Tablet 25 Mg PO DAILY Losartan Potassium 25 Mg Tablet 25 Mg PO DAILY Xalatan (Latanoprost) 2.5 Ml Drops 1 Drp OU DAILY Ibuprofen 400 Mg Tablet 200 Mg PO BID Aspirin 81 Mg Tab.chew 81 Mg PO DAILY Albuterol Sulfate Neb Soln (Albuterol Sulfate) 2.5 Mg/3 Ml Vial.neb 2.5 Mg NEB PRN DAILY PRN I have reviewed the current psychotropics carefully including drug interactions. Risk benefit ratio favors no change other than as noted in my dictated progress note. Diagnosis: Problems: (1) Delusion (2) Confusion (3) Suicidal ideation (4) Anxiety disorder (5) Dementia in Alzheimer's disease with depression (6) Dementia in Alzheimer's disease with delusions (7) Dementia, vascular, with delusions (8) Dementia, vascular, with depression (9) Impulse control disorder KRYSTAL HAHN MD Aug 24, 2017 20:12
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
[2017-08-25 06:06] VITALS: BP 144/60
[2017-08-25] MEDS: CHOLECALCIFEROL (VITAMIN D3) 1,000 UNIT TABLET PO SCH (07:37)
[2017-08-25] MEDS: RIVAROXABAN 10 MG TABLET. PO SCH (07:37)
[2017-08-25] MEDS: METOPROLOL TART IMMED RELEASE 25 MG TABLET PO SCH (07:38)
[2017-08-25] MEDS: QUEtiapine 25 MG TABLET. PO SCH ×3 (07:38→17:00)
[2017-08-25] MEDS: LOSARTAN 25 MG TABLET. PO SCH (07:38)
[2017-08-25] MEDS: MEMANTINE 10 MG TABLET. PO SCH (07:38)
[2017-08-25] MEDS: RIVASTIGMINE 9.5MG PATCH. TD SCH (07:39)
[2017-08-25] MEDS: LATANOPROST 0.005% OPHTH SOLUTION 2.5ML BOTTLE. OU SCH (07:40)
[2017-08-25] MEDS: ACETAMINOPHEN 325 MG TABLET PO PRN (07:40)
[2017-08-25] MEDS: VITAMIN E 200 UNIT CAPSULE. PO SCH (07:41)
[2017-08-25] MEDS: diazePAM 2 MG TABLET PO SCH ×3 (07:41→21:00)
[2017-08-25] MEDS: ASPIRIN 81 MG TAB.CHEW PO SCH (07:41)
[2017-08-25 07:46] LABS: BASO # 0.1 x10^3/uL (0.0-0.2); BASO % 1 % (0-3); EOS # 0.5 x10^3/uL (0.0-0.7); EOS % 5 % (0-3); HEMATOCRIT 41.9 % (39.0-53.0); HEMOGLOBIN 13.8 g/dL (13.0-17.5); LYMPH # 3.1 x10^3/uL (1.0-4.8); LYMPH % 27 % (24-48); MEAN CORPUSCULAR HEMOGLOBIN 30 pg (25-35); MEAN CORPUSCULAR HGB CONC 33 g/dL (31-37); MEAN CORPUSCULAR VOLUME 90 fL (79-100); MONO # 1.3 x10^3/uL (0.0-1.1); MONO % 11 % (0-9); NEUT # 6.4 x10^3uL (1.8-7.7); NEUT % 56 % (31-73); PLATELET COUNT 463 x10^3/uL (140-400); RED BLOOD COUNT 4.65 x10^6/uL (4.30-5.70); RED CELL DISTRIBUTION WIDTH 16.5 % (11.5-14.5); WHITE BLOOD COUNT 11.5 x10^3/uL (4.0-11.0)
[2017-08-25 07:59] LABS: ALBUMIN 3.7 g/dL (3.4-5.0); ALBUMIN/GLOBULIN RATIO 0.9 (1.0-1.7); CALCIUM 9.1 mg/dL (8.5-10.1); CREATININE 1.1 mg/dL (0.7-1.3); GFR 64.1; POTASSIUM 3.6 mmol/L (3.5-5.1); TOTAL BILIRUBIN 0.7 mg/dL (0.2-1.0); TOTAL PROTEIN 7.8 g/dL (6.4-8.2)
[2017-08-25] MEDS: HYDROcodone/APAP 7.5/325MG 1 TAB TABLET PO PRN (12:27)
[2017-08-25 15:57] VITALS: BP 117/64
--- NOTE | 2017-08-25 20:03 | PDOC ---
Exam Note: Chris Note: Please also refer to the separate dictated note~for this date of service dictated separately.~Patient seen individually. Discussed the patient with Nursing staff reviewed the chart.~Reviewed interim history and current functioning. Reviewed vital signs,~Labs/ Radiology~and current medications noted below. Continue current treatment with the changes noted in the dictated addendum note Assessment: Vital Signs: Vital Signs Date Time Temp Pulse Resp B/P (MAP) Pulse Ox O2 Delivery O2 Flow Rate FiO2 08/25/17 15:57 97.8 58 18 117/64 (81) 96 Room Air I&O Intake and Output 08/25/17 07:00 Intake Total 1040 ml Balance 1040 ml Intake Oral 1040 ml Labs: Laboratory Tests Test 08/25/17 07:26 White Blood Count 11.5 x10^3/uL (4.0-11.0) H Red Blood Count 4.65 x10^6/uL (4.30-5.70) Hemoglobin 13.8 g/dL (13.0-17.5) Hematocrit 41.9 % (39.0-53.0) Mean Corpuscular Volume 90 fL (79-100) Mean Corpuscular Hemoglobin 30 pg (25-35) Mean Corpuscular Hemoglobin Concent 33 g/dL (31-37) Red Cell Distribution Width 16.5 % (11.5-14.5) H Platelet Count 463 x10^3/uL (140-400) H Neutrophils (%) (Auto) 56 % (31-73) Lymphocytes (%) (Auto) 27 % (24-48) Monocytes (%) (Auto) 11 % (0-9) H Eosinophils (%) (Auto) 5 % (0-3) H Basophils (%) (Auto) 1 % (0-3) Neutrophils # (Auto) 6.4 x10^3uL (1.8-7.7) Lymphocytes # (Auto) 3.1 x10^3/uL (1.0-4.8) Monocytes # (Auto) 1.3 x10^3/uL (0.0-1.1) H Eosinophils # (Auto) 0.5 x10^3/uL (0.0-0.7) Basophils # (Auto) 0.1 x10^3/uL (0.0-0.2) Sodium Level 145 mmol/L (136-145) Potassium Level 3.6 mmol/L (3.5-5.1) Chloride Level 108 mmol/L (98-107) H Carbon Dioxide Level 27 mmol/L (21-32) Anion Gap 10 (6-14) Blood Urea Nitrogen 15 mg/dL (8-26) Creatinine 1.1 mg/dL (0.7-1.3) Estimated GFR (Cockcroft-Gault) 64.1 BUN/Creatinine Ratio 14 (6-20) Glucose Level 100 mg/dL (70-99) H Calcium Level 9.1 mg/dL (8.5-10.1) Magnesium Level 2.1 mg/dL (1.8-2.4) Total Bilirubin 0.7 mg/dL (0.2-1.0) Aspartate Amino Transferase (AST) 64 U/L (15-37) H Alanine Aminotransferase (ALT) 44 U/L (16-63) Alkaline Phosphatase 68 U/L (46-116) Total Protein 7.8 g/dL (6.4-8.2) Albumin 3.7 g/dL (3.4-5.0) Albumin/Globulin Ratio 0.9 (1.0-1.7) L Current Medications: Meds: Current Medications Acetaminophen (Tylenol) 650 mg PRN Q6HRS PRN PO PAIN / TEMP Last administered on 08/25/17at 07:40; Start 08/20/17 at 18:30 Al Hydroxide/Mg Hydroxide (Mylanta Plus Xs) 15 ml PRN AFTMEALHC PRN PO DYSPEPSIA; Start 08/20/17 at 18:30 Magnesium Hydroxide (Milk Of Magnesia) 2,400 mg PRN QHS PRN PO CONSTIPATION; Start 08/20/17 at 18:30 Albuterol Sulfate (Ventolin) 2.5 mg PRN DAILY PRN NEB SHORTNESS OF BREATH; Start 08/20/17 at 21:15 Aspirin (Children'S Aspirin) 81 mg DAILY PO Last administered on 08/25/17at 07: 41; Start 08/21/17 at 09:00 Acetaminophen/ Hydrocodone Bitart (Lortab 7.5/325) 1 tab PRN TID PRN PO PAIN Last administered on 08/25/17at 12:27; Start 08/20/17 at 21:15 Ibuprofen (Motrin) 200 mg BID PO Last administered on 08/22/17at 07:54; Start at 22:00; Stop 08/23/17 at 07:21; Status DC Latanoprost (Xalatan) 1 drop DAILY OU Last administered on 08/25/17at 07:40; Start 08/21/17 at 09:00 Losartan Potassium (Cozaar) 25 mg DAILY PO Last administered on 08/25/17at 07:38 ; Start 08/21/17 at 09:00 Metoprolol Tartrate (Lopressor) 25 mg DAILY PO Last administered on 08/25/17at 07:38; Start 08/21/17 at 09:00 Rivaroxaban (Xarelto) 20 mg DAILY PO Last administered on 08/25/17at 07:37; Start 08/21/17 at 09:00 Rivastigmine (Exelon) 1 patch DAILY TD Last administered on 08/25/17at 07:39; Start 08/21/17 at 09:00 Vitamin D (Vitamin D3) 2,000 unit DAILY PO Last administered on 08/25/17at 07:37 ; Start 08/21/17 at 09:00 Vitamin E 200 unit DAILY PO Last administered on 08/25/17at 07:41; Start at 09:00 Memantine (Namenda) 10 mg DAILY PO Last administered on 08/25/17at 07:38; Start 08/21/17 at 09:00 Quetiapine Fumarate (SEROquel) 25 mg PRN QHS PRN PO INSOMNIA Last administered on 08/22/17at 20:01; Start 08/20/17 at 21:30 Diazepam (Valium) 1.5 mg TID PO Last administered on 08/21/17at 14:06; Start at 14:00; Stop 08/21/17 at 18:51; Status DC Diazepam (Valium) 1 mg TID PO ; Start 08/26/17 at 09:00; Stop 08/26/17 at 09:00 ; Status DC Diazepam (Valium) 0.5 mg TID PO ; Start 08/31/17 at 09:00; Stop 08/31/17 at 09: 00; Status DC Mirtazapine (Remeron) 7.5 mg QHS PO Last administered on 08/21/17at 20:43; Start 08/21/17 at 21:00; Stop 08/22/17 at 18:32; Status DC Diazepam (Valium) 2 mg BID@1400,2100 PO Last administered on 08/25/17at 14:00; Start 08/21/17 at 21:00; Stop 08/27/17 at 09:00 Diazepam (Valium) 1.5 mg DAILYWBKFT PO Last administered on 08/25/17at 07:41; Start 08/22/17 at 08:00; Stop 08/27/17 at 07:59 Diazepam (Valium) 1.5 mg BID92 PO ; Start 08/27/17 at 09:00; Stop 09/01/17 at 08 :59 Diazepam (Valium) 2 mg QHS PO ; Start 08/27/17 at 21:00; Stop 09/01/17 at 20:59 Mirtazapine (Remeron) 15 mg QHS PO Last administered on 08/23/17at 20:30; Start 08/22/17 at 21:00; Stop 08/24/17 at 18:02; Status DC Quetiapine Fumarate (SEROquel) 12.5 mg TID@0900,1300,1700 PO Last administered on 08/25/17at 12:27; Start 08/23/17 at 09:00 Melatonin 3 mg QHS PO Last administered on 08/24/17at 19:33; Start 08/22/17 at 21:00 Olanzapine (ZyPREXA ZYDIS) 2.5 mg PRN Q2HR PRN PO ANXIETY / AGITATION Last administered on 08/25/17at 08:59; Start 08/22/17 at 18:30 Amitriptyline HCl (Elavil) 25 mg QHS PO Last administered on 08/24/17at 19:33; Start 08/24/17 at 21:00 Active Scripts Active Reported Diazepam 2 Mg Tablet 2 Mg PO TID Xarelto (Rivaroxaban) 10 Mg Tablet 20 Mg PO DAILY Vitamin E (Vitamin E Mixed) 200 Unit Tablet 200 Unit PO DAILY Vitamin D (Cholecalciferol (Vitamin D3)) 2,000 Unit Capsule 2,000 Unit PO DAILY Seroquel (Quetiapine Fumarate) 25 Mg Tablet 25 Mg PO PRN QHS PRN Hydrocodone-Apap 7.5-325 (Hydrocodone Bit/Acetaminophen) 1 Each Tablet 1 Tab PO TID PRN EXELON 9.5mg/24hr (Rivastigmine) 1 Each Patch.td24 1 Patch TD DAILY Namenda (Memantine Hcl) 10 Mg Tablet 10 Mg PO DAILY Metoprolol Tartrate 25 Mg Tablet 25 Mg PO DAILY Losartan Potassium 25 Mg Tablet 25 Mg PO DAILY Xalatan (Latanoprost) 2.5 Ml Drops 1 Drp OU DAILY Ibuprofen 400 Mg Tablet 200 Mg PO BID Aspirin 81 Mg Tab.chew 81 Mg PO DAILY Albuterol Sulfate Neb Soln (Albuterol Sulfate) 2.5 Mg/3 Ml Vial.neb 2.5 Mg NEB PRN DAILY PRN I have reviewed the current psychotropics carefully including drug interactions. Risk benefit ratio favors no change other than as noted in my dictated progress note. Diagnosis: Problems: (1) Delusion (2) Confusion (3) Suicidal ideation (4) Anxiety disorder (5) Dementia in Alzheimer's disease with depression (6) Dementia in Alzheimer's disease with delusions (7) Dementia, vascular, with delusions (8) Dementia, vascular, with depression (9) Impulse control disorder KRYSTAL HAHN MD Aug 25, 2017 20:03
[2017-08-25] MEDS: AMITRIPTYLINE HCL 25 MG TABLET PO SCH (21:00)
[2017-08-25] MEDS: MELATONIN 3 MG TABLET PO SCH (21:00)
--- NOTE | 2017-08-26 03:31 | PN ---
DATE: 08/24/2017 This is a late entry, 08/24/2017, covers elements not covered in my initial note, 08/24/2017. Met with the patient evening of 08/24/2017. The patient slept 2-3/4 hours previous evening, met with him in his room. He has been somewhat delusional, believes he is going to [place] and will be back at lunchtime. He is talking about wanting a television in his room and sleeping poorly. He is tying his laces in his room and had a sense of humor as I interacted with him. When I asked him if he was going to do the same with the other shoe and he said "I have two feet, don't I?" MENTAL STATUS EXAM: Oriented to himself. Insight, judgment, recent and remote memory, attention, concentration, fund of knowledge poor, consistent with his diagnosis mentioned in my initial note. IMPRESSION: Major neurocognitive disorder, Alzheimer, vascular with depression, delusion, behavioral disturbance. Rest unchanged. PLAN: Continue current psychotropics. Change Remeron to amitriptyline 25 mg p.o. at bedtime due to his marked insomnia. Adjust further as clinically indicated. KRYSTAL HAHN MD DR: HALINA/namita JOB#: [id number] / [id number]
[2017-08-26 05:56] VITALS: BP 128/80
[2017-08-26] MEDS: RIVAROXABAN 10 MG TABLET. PO SCH (07:45)
[2017-08-26] MEDS: RIVASTIGMINE 9.5MG PATCH. TD SCH (07:46)
[2017-08-26] MEDS: METOPROLOL TART IMMED RELEASE 25 MG TABLET PO SCH (07:46)
[2017-08-26] MEDS: CHOLECALCIFEROL (VITAMIN D3) 1,000 UNIT TABLET PO SCH (07:46)
[2017-08-26] MEDS: LOSARTAN 25 MG TABLET. PO SCH (07:47)
[2017-08-26] MEDS: ASPIRIN 81 MG TAB.CHEW PO SCH (07:47)
[2017-08-26] MEDS: MEMANTINE 10 MG TABLET. PO SCH (07:47)
[2017-08-26] MEDS: QUEtiapine 25 MG TABLET. PO SCH ×3 (07:47→17:15)
[2017-08-26] MEDS: LATANOPROST 0.005% OPHTH SOLUTION 2.5ML BOTTLE. OU SCH (07:49)
[2017-08-26] MEDS: diazePAM 2 MG TABLET PO SCH ×3 (07:49→19:56)
[2017-08-26] MEDS: VITAMIN E 200 UNIT CAPSULE. PO SCH (07:50)
[2017-08-26] MEDS ORDERED: diazePAM 2 MG TABLET PO SCH (09:00)
--- NOTE | 2017-08-26 10:30 | PN ---
DATE: 08/23/2017 SUBJECTIVE: This is a late entry of 08/23, covers the elements not covered in my initial note on 08/23. Met with the patient in the evening of 08/23. The patient slept 7 hours previous evening, of which 2 was the previous night and then he slept off and on in the morning until lunchtime. Calm, cooperative, confused, compliant with his medications. REVIEW OF SYSTEMS: No CV, , pulmonary, eye, ENT system symptoms on review. RELIABILITY: Poor. MENTAL STATUS EXAMINATION: Oriented to himself. Insight, judgment, recent and remote memory, attention, concentration, fund of knowledge poor, consistent with his diagnosis. IMPRESSION: Unchanged from initial note, major neurocognitive disorder; Alzheimer's, vascular with depression; delusion; behavioral disturbance. Rest unchanged. PLAN: Taper the Valium. Continue rest of the psychotropics mentioned in my initial note. MAN Johnny HAHN MD DR: HALINA/namita JOB#: [id number] / [id number]
[2017-08-26 16:00] VITALS: BP 119/72
[2017-08-26] MEDS: AMITRIPTYLINE HCL 25 MG TABLET PO SCH (19:55)
[2017-08-26] MEDS: MELATONIN 3 MG TABLET PO SCH (19:55)
--- NOTE | 2017-08-26 20:19 | PDOC ---
Exam Note: Chris Note: Please also refer to the separate dictated note~for this date of service dictated separately.~Patient seen individually. Discussed the patient with Nursing staff reviewed the chart.~Reviewed interim history and current functioning. Reviewed vital signs,~Labs/ Radiology~and current medications noted below. Continue current treatment with the changes noted in the dictated addendum note Assessment: Vital Signs: Vital Signs Date Time Temp Pulse Resp B/P (MAP) Pulse Ox O2 Delivery O2 Flow Rate FiO2 08/26/17 16:00 97.7 71 20 119/72 (88) 93 Room Air I&O Intake and Output 08/26/17 07:00 Intake Total 0 ml Balance 0 ml Intake Oral 0 ml Current Medications: Meds: Current Medications Acetaminophen (Tylenol) 650 mg PRN Q6HRS PRN PO PAIN / TEMP Last administered on 08/25/17at 07:40; Start 08/20/17 at 18:30 Al Hydroxide/Mg Hydroxide (Mylanta Plus Xs) 15 ml PRN AFTMEALHC PRN PO DYSPEPSIA; Start 08/20/17 at 18:30 Magnesium Hydroxide (Milk Of Magnesia) 2,400 mg PRN QHS PRN PO CONSTIPATION; Start 08/20/17 at 18:30 Albuterol Sulfate (Ventolin) 2.5 mg PRN DAILY PRN NEB SHORTNESS OF BREATH; Start 08/20/17 at 21:15 Aspirin (Children'S Aspirin) 81 mg DAILY PO Last administered on 08/26/17at 07: 47; Start 08/21/17 at 09:00 Acetaminophen/ Hydrocodone Bitart (Lortab 7.5/325) 1 tab PRN TID PRN PO PAIN Last administered on 08/25/17at 12:27; Start 08/20/17 at 21:15 Ibuprofen (Motrin) 200 mg BID PO Last administered on 08/22/17at 07:54; Start at 22:00; Stop 08/23/17 at 07:21; Status DC Latanoprost (Xalatan) 1 drop DAILY OU Last administered on 08/26/17at 07:49; Start 08/21/17 at 09:00 Losartan Potassium (Cozaar) 25 mg DAILY PO Last administered on 08/26/17at 07:47 ; Start 08/21/17 at 09:00 Metoprolol Tartrate (Lopressor) 25 mg DAILY PO Last administered on 08/26/17at 07:46; Start 08/21/17 at 09:00 Rivaroxaban (Xarelto) 20 mg DAILY PO Last administered on 08/26/17at 07:45; Start 08/21/17 at 09:00 Rivastigmine (Exelon) 1 patch DAILY TD Last administered on 08/26/17at 07:46; Start 08/21/17 at 09:00 Vitamin D (Vitamin D3) 2,000 unit DAILY PO Last administered on 08/26/17at 07:46 ; Start 08/21/17 at 09:00 Vitamin E 200 unit DAILY PO Last administered on 08/26/17at 07:50; Start at 09:00 Memantine (Namenda) 10 mg DAILY PO Last administered on 08/26/17at 07:47; Start 08/21/17 at 09:00 Quetiapine Fumarate (SEROquel) 25 mg PRN QHS PRN PO INSOMNIA Last administered on 08/22/17at 20:01; Start 08/20/17 at 21:30 Diazepam (Valium) 1.5 mg TID PO Last administered on 08/21/17at 14:06; Start at 14:00; Stop 08/21/17 at 18:51; Status DC Diazepam (Valium) 1 mg TID PO ; Start 08/26/17 at 09:00; Stop 08/26/17 at 09:00 ; Status DC Diazepam (Valium) 0.5 mg TID PO ; Start 08/31/17 at 09:00; Stop 08/31/17 at 09: 00; Status DC Mirtazapine (Remeron) 7.5 mg QHS PO Last administered on 08/21/17at 20:43; Start 08/21/17 at 21:00; Stop 08/22/17 at 18:32; Status DC Diazepam (Valium) 2 mg BID@1400,2100 PO Last administered on 08/26/17at 19:56; Start 08/21/17 at 21:00; Stop 08/27/17 at 09:00 Diazepam (Valium) 1.5 mg DAILYWBKFT PO Last administered on 08/26/17at 07:49; Start 08/22/17 at 08:00; Stop 08/27/17 at 07:59 Diazepam (Valium) 1.5 mg BID92 PO ; Start 08/27/17 at 09:00; Stop 09/01/17 at 08 :59 Diazepam (Valium) 2 mg QHS PO ; Start 08/27/17 at 21:00; Stop 09/01/17 at 20:59 Mirtazapine (Remeron) 15 mg QHS PO Last administered on 08/23/17at 20:30; Start 08/22/17 at 21:00; Stop 08/24/17 at 18:02; Status DC Quetiapine Fumarate (SEROquel) 12.5 mg TID@0900,1300,1700 PO Last administered on 08/26/17at 17:15; Start 08/23/17 at 09:00 Melatonin 3 mg QHS PO Last administered on 08/26/17at 19:55; Start 08/22/17 at 21:00 Olanzapine (ZyPREXA ZYDIS) 2.5 mg PRN Q2HR PRN PO ANXIETY / AGITATION Last administered on 08/26/17at 16:00; Start 08/22/17 at 18:30 Amitriptyline HCl (Elavil) 25 mg QHS PO Last administered on 08/26/17at 19:55; Start 08/24/17 at 21:00 Active Scripts Active Reported Diazepam 2 Mg Tablet 2 Mg PO TID Xarelto (Rivaroxaban) 10 Mg Tablet 20 Mg PO DAILY Vitamin E (Vitamin E Mixed) 200 Unit Tablet 200 Unit PO DAILY Vitamin D (Cholecalciferol (Vitamin D3)) 2,000 Unit Capsule 2,000 Unit PO DAILY Seroquel (Quetiapine Fumarate) 25 Mg Tablet 25 Mg PO PRN QHS PRN Hydrocodone-Apap 7.5-325 (Hydrocodone Bit/Acetaminophen) 1 Each Tablet 1 Tab PO TID PRN EXELON 9.5mg/24hr (Rivastigmine) 1 Each Patch.td24 1 Patch TD DAILY Namenda (Memantine Hcl) 10 Mg Tablet 10 Mg PO DAILY Metoprolol Tartrate 25 Mg Tablet 25 Mg PO DAILY Losartan Potassium 25 Mg Tablet 25 Mg PO DAILY Xalatan (Latanoprost) 2.5 Ml Drops 1 Drp OU DAILY Ibuprofen 400 Mg Tablet 200 Mg PO BID Aspirin 81 Mg Tab.chew 81 Mg PO DAILY Albuterol Sulfate Neb Soln (Albuterol Sulfate) 2.5 Mg/3 Ml Vial.neb 2.5 Mg NEB PRN DAILY PRN I have reviewed the current psychotropics carefully including drug interactions. Risk benefit ratio favors no change other than as noted in my dictated progress note. Diagnosis: Problems: (1) Encounter for medical screening examination (2) Delusion (3) Confusion (4) Suicidal ideation (5) Anxiety disorder (6) Dementia in Alzheimer's disease with depression (7) Dementia in Alzheimer's disease with delusions (8) Dementia, vascular, with delusions (9) Dementia, vascular, with depression (10) Impulse control disorder KRYSTAL HAHN MD Aug 26, 2017 20:19
[2017-08-27 05:50] VITALS: BP 131/67
[2017-08-27] MEDS: RIVAROXABAN 10 MG TABLET. PO SCH (07:50)
[2017-08-27] MEDS: METOPROLOL TART IMMED RELEASE 25 MG TABLET PO SCH (07:50)
[2017-08-27] MEDS: QUEtiapine 25 MG TABLET. PO SCH ×4 (07:50→22:09)
[2017-08-27] MEDS: CHOLECALCIFEROL (VITAMIN D3) 1,000 UNIT TABLET PO SCH (07:50)
[2017-08-27] MEDS: MEMANTINE 10 MG TABLET. PO SCH (07:51)
[2017-08-27] MEDS: ASPIRIN 81 MG TAB.CHEW PO SCH ×2 (07:51→20:15)
[2017-08-27] MEDS: RIVASTIGMINE 9.5MG PATCH. TD SCH (07:51)
[2017-08-27] MEDS: LOSARTAN 25 MG TABLET. PO SCH (07:51)
[2017-08-27] MEDS: VITAMIN E 200 UNIT CAPSULE. PO SCH (07:55)
[2017-08-27] MEDS: LATANOPROST 0.005% OPHTH SOLUTION 2.5ML BOTTLE. OU SCH (07:55)
[2017-08-27] MEDS: diazePAM 2 MG TABLET PO SCH ×3 (07:55→20:15)
[2017-08-27 14:01] LABS: BILIRUBIN,URINE NEG (NEG); CLARITY,URINE HAZY; COLOR,URINE AMBER; GLUCOSE,URINE NEG (NEG); NITRITE,URINE NEG (NEG); UROBILINOGEN,URINE 0.2 mg/dL (0.2 mg/dL)
[2017-08-27 14:02] LABS: BACTERIA,URINE 0 /HPF (0-FEW); SQUAMOUS EPITHELIAL CELL,UR OCC /LPF; WBC,URINE 0 /HPF (0-4)
[2017-08-27 16:19] VITALS: BP 124/63
--- NOTE | 2017-08-27 20:14 | PDOC ---
Exam Note: Chris Note: Please also refer to the separate dictated note~for this date of service dictated separately.~Patient seen individually. Discussed the patient with Nursing staff reviewed the chart.~Reviewed interim history and current functioning. Reviewed vital signs,~Labs/ Radiology~and current medications noted below. Continue current treatment with the changes noted in the dictated addendum note Assessment: Vital Signs: Vital Signs Date Time Temp Pulse Resp B/P (MAP) Pulse Ox O2 Delivery O2 Flow Rate FiO2 08/27/17 16:19 97.3 60 20 124/63 (83) 96 Room Air I&O Intake and Output 08/27/17 07:00 Intake Total 960 ml Balance 960 ml Intake Oral 960 ml Labs: Laboratory Tests Test 08/27/17 13:30 Urine Collection Type Unknown Urine Color Xuan Urine Clarity Hazy Urine pH 6.0 Urine Specific [place] 1.020 Urine Protein Trace (NEG-TRACE) Urine Glucose (UA) Neg mg/dL (NEG) Urine Ketones (Stick) 15 mg/dL (NEG) Urine Blood Mod (NEG) Urine Nitrite Neg (NEG) Urine Bilirubin Neg (NEG) Urine Urobilinogen Dipstick 0.2 mg/dL (0.2 mg/dL) Urine Leukocyte Esterase Neg (NEG) Urine RBC 3-5 /HPF (0-2) Urine WBC 0 /HPF (0-4) Urine Squamous Epithelial Cells Occ /LPF Urine Bacteria 0 /HPF (0-FEW) Urine Mucus Slight /LPF Current Medications: Meds: Current Medications Acetaminophen (Tylenol) 650 mg PRN Q6HRS PRN PO PAIN / TEMP Last administered on 08/25/17at 07:40; Start 08/20/17 at 18:30 Al Hydroxide/Mg Hydroxide (Mylanta Plus Xs) 15 ml PRN AFTMEALHC PRN PO DYSPEPSIA; Start 08/20/17 at 18:30 Magnesium Hydroxide (Milk Of Magnesia) 2,400 mg PRN QHS PRN PO CONSTIPATION; Start 08/20/17 at 18:30 Albuterol Sulfate (Ventolin) 2.5 mg PRN DAILY PRN NEB SHORTNESS OF BREATH; Start 08/20/17 at 21:15 Aspirin (Children'S Aspirin) 81 mg DAILY PO Last administered on 08/27/17at 07: 51; Start 08/21/17 at 09:00 Acetaminophen/ Hydrocodone Bitart (Lortab 7.5/325) 1 tab PRN TID PRN PO PAIN Last administered on 08/25/17at 12:27; Start 08/20/17 at 21:15 Ibuprofen (Motrin) 200 mg BID PO Last administered on 08/22/17at 07:54; Start at 22:00; Stop 08/23/17 at 07:21; Status DC Latanoprost (Xalatan) 1 drop DAILY OU Last administered on 08/27/17at 07:55; Start 08/21/17 at 09:00 Losartan Potassium (Cozaar) 25 mg DAILY PO Last administered on 08/27/17 07:51 ; Start 08/21/17 at 09:00 Metoprolol Tartrate (Lopressor) 25 mg DAILY PO Last administered on 08/27/17at 07:50; Start 08/21/17 at 09:00 Rivaroxaban (Xarelto) 20 mg DAILY PO Last administered on 08/27/17at 07:50; Start 08/21/17 at 09:00 Rivastigmine (Exelon) 1 patch DAILY TD Last administered on 08/27/17at 07:51; Start 08/21/17 at 09:00 Vitamin D (Vitamin D3) 2,000 unit DAILY PO Last administered on 08/27/17at 07:50 ; Start 08/21/17 at 09:00 Vitamin E 200 unit DAILY PO Last administered on 08/27/17at 07:55; Start at 09:00 Memantine (Namenda) 10 mg DAILY PO Last administered on 08/27/17at 07:51; Start 08/21/17 at 09:00 Quetiapine Fumarate (SEROquel) 25 mg PRN QHS PRN PO INSOMNIA Last administered on 08/22/17at 20:01; Start 08/20/17 at 21:30 Diazepam (Valium) 1.5 mg TID PO Last administered on 08/21/17at 14:06; Start at 14:00; Stop 08/21/17 at 18:51; Status DC Diazepam (Valium) 1 mg TID PO ; Start 08/26/17 at 09:00; Stop 08/26/17 at 09:00 ; Status DC Diazepam (Valium) 0.5 mg TID PO ; Start 08/31/17 at 09:00; Stop 08/31/17 at 09: 00; Status DC Mirtazapine (Remeron) 7.5 mg QHS PO Last administered on 08/21/17at 20:43; Start 08/21/17 at 21:00; Stop 08/22/17 at 18:32; Status DC Diazepam (Valium) 2 mg BID@1400,2100 PO Last administered on 08/26/17at 19:56; Start 08/21/17 at 21:00; Stop 08/27/17 at 09:00; Status DC Diazepam (Valium) 1.5 mg DAILYWBKFT PO Last administered on 08/26/17at 07:49; Start 08/22/17 at 08:00; Stop 08/27/17 at 07:59; Status DC Diazepam (Valium) 1.5 mg BID92 PO Last administered on 08/27/17at 13:17; Start 08/27/17 at 09:00; Stop 09/01/17 at 08:59 Diazepam (Valium) 2 mg QHS PO ; Start 08/27/17 at 21:00; Stop 09/01/17 at 20:59 Mirtazapine (Remeron) 15 mg QHS PO Last administered on 08/23/17at 20:30; Start 08/22/17 at 21:00; Stop 08/24/17 at 18:02; Status DC Quetiapine Fumarate (SEROquel) 12.5 mg TID@0900,1300,1700 PO Last administered on 08/27/17at 17:00; Start 08/23/17 at 09:00 Melatonin 3 mg QHS PO Last administered on 08/26/17at 19:55; Start 08/22/17 at 21:00 Olanzapine (ZyPREXA ZYDIS) 2.5 mg PRN Q2HR PRN PO ANXIETY / AGITATION Last administered on 08/26/17at 16:00; Start 08/22/17 at 18:30 Amitriptyline HCl (Elavil) 25 mg QHS PO Last administered on 08/26/17at 19:55; Start 08/24/17 at 21:00 Active Scripts Active Reported Diazepam 2 Mg Tablet 2 Mg PO TID Xarelto (Rivaroxaban) 10 Mg Tablet 20 Mg PO DAILY Vitamin E (Vitamin E Mixed) 200 Unit Tablet 200 Unit PO DAILY Vitamin D (Cholecalciferol (Vitamin D3)) 2,000 Unit Capsule 2,000 Unit PO DAILY Seroquel (Quetiapine Fumarate) 25 Mg Tablet 25 Mg PO PRN QHS PRN Hydrocodone-Apap 7.5-325 (Hydrocodone Bit/Acetaminophen) 1 Each Tablet 1 Tab PO TID PRN EXELON 9.5mg/24hr (Rivastigmine) 1 Each Patch.td24 1 Patch TD DAILY Namenda (Memantine Hcl) 10 Mg Tablet 10 Mg PO DAILY Metoprolol Tartrate 25 Mg Tablet 25 Mg PO DAILY Losartan Potassium 25 Mg Tablet 25 Mg PO DAILY Xalatan (Latanoprost) 2.5 Ml Drops 1 Drp OU DAILY Ibuprofen 400 Mg Tablet 200 Mg PO BID Aspirin 81 Mg Tab.chew 81 Mg PO DAILY Albuterol Sulfate Neb Soln (Albuterol Sulfate) 2.5 Mg/3 Ml Vial.neb 2.5 Mg NEB PRN DAILY PRN I have reviewed the current psychotropics carefully including drug interactions. Risk benefit ratio favors no change other than as noted in my dictated progress note. Diagnosis: Problems: (1) Encounter for medical screening examination (2) Delusion (3) Confusion (4) Suicidal ideation (5) Anxiety disorder (6) Dementia in Alzheimer's disease with depression (7) Dementia in Alzheimer's disease with delusions (8) Dementia, vascular, with delusions (9) Dementia, vascular, with depression (10) Impulse control disorder KRYSTAL HAHN MD Aug 27, 2017 20:14
[2017-08-27] MEDS: MELATONIN 3 MG TABLET PO SCH (20:15)
[2017-08-27] MEDS: AMITRIPTYLINE HCL 25 MG TABLET PO SCH (20:15)
[2017-08-27] MEDS: HYDROcodone/APAP 7.5/325MG 1 TAB TABLET PO PRN (22:09)
--- NOTE | 2017-08-28 03:25 | PN ---
DATE: 08/25/2017 This is a late entry for 08/25/2017 covers elements not covered in my initial note of 08/25/2017. SUBJECTIVE: I met with the patient in the evening of 08/25/2017. The patient slept 0 hours previous evening, received Zyprexa in the morning and Lortab last evening, sleeping off and on during the day. In the morning, he was wandering, exit seeking, delusional, slept at 03:00 p.m. talking about being at a show and that he is looking for his car. REVIEW OF SYSTEMS: No CV, , pulmonary, eye, ENT system symptoms on review. Reliability poor. MENTAL STATUS EXAM: Oriented to himself. Insight, judgment, recent and remote memory, attention, concentration, fund of knowledge poor, consistent with his diagnosis mentioned in my initial note. IMPRESSION: Major neurocognitive disorder, Alzheimer, vascular with depression, delusion, behavioral disturbance. Rest unchanged. PLAN: Continue current psychotropics mentioned in my initial note. Adjust as clinically indicated. MAN Johnny HAHN MD DR: HALINA/namita JOB#: [id number] / [id number]
[2017-08-28 05:58] VITALS: BP 135/88
[2017-08-28 08:20] LABS: BASO # 0.1 x10^3/uL (0.0-0.2); BASO % 1 % (0-3); EOS # 0.5 x10^3/uL (0.0-0.7); EOS % 5 % (0-3); HEMATOCRIT 42.6 % (39.0-53.0); HEMOGLOBIN 13.9 g/dL (13.0-17.5); LYMPH # 3.8 x10^3/uL (1.0-4.8); LYMPH % 36 % (24-48); MEAN CORPUSCULAR HEMOGLOBIN 30 pg (25-35); MEAN CORPUSCULAR HGB CONC 33 g/dL (31-37); MEAN CORPUSCULAR VOLUME 91 fL (79-100); MONO # 0.9 x10^3/uL (0.0-1.1); MONO % 8 % (0-9); NEUT # 5.3 x10^3uL (1.8-7.7); NEUT % 50 % (31-73); PLATELET COUNT 465 x10^3/uL (140-400); RED BLOOD COUNT 4.66 x10^6/uL (4.30-5.70); RED CELL DISTRIBUTION WIDTH 16.7 % (11.5-14.5); WHITE BLOOD COUNT 10.7 x10^3/uL (4.0-11.0)
[2017-08-28] MEDS: MEMANTINE 10 MG TABLET. PO SCH (08:21)
[2017-08-28] MEDS: RIVAROXABAN 10 MG TABLET. PO SCH (08:21)
[2017-08-28] MEDS: CHOLECALCIFEROL (VITAMIN D3) 1,000 UNIT TABLET PO SCH (08:21)
[2017-08-28] MEDS: VITAMIN E 200 UNIT CAPSULE. PO SCH (08:22)
[2017-08-28] MEDS: METOPROLOL TART IMMED RELEASE 25 MG TABLET PO SCH (08:22)
[2017-08-28] MEDS: LATANOPROST 0.005% OPHTH SOLUTION 2.5ML BOTTLE. OU SCH (08:23)
[2017-08-28] MEDS: RIVASTIGMINE 9.5MG PATCH. TD SCH (08:23)
[2017-08-28] MEDS: LOSARTAN 25 MG TABLET. PO SCH (08:24)
[2017-08-28] MEDS: diazePAM 2 MG TABLET PO SCH ×3 (08:25→20:52)
[2017-08-28 08:31] LABS: ALBUMIN 3.5 g/dL (3.4-5.0); ALBUMIN/GLOBULIN RATIO 0.9 (1.0-1.7); CALCIUM 8.8 mg/dL (8.5-10.1); CREATININE 0.9 mg/dL (0.7-1.3); GFR 80.8; POTASSIUM 3.4 mmol/L (3.5-5.1); TOTAL BILIRUBIN 0.4 mg/dL (0.2-1.0); TOTAL PROTEIN 7.5 g/dL (6.4-8.2)
--- NOTE | 2017-08-28 10:52 | RAD ---
EXAM: Chest, single view. HISTORY: Leukocytosis. COMPARISON: None. FINDINGS: A frontal view of the chest is obtained. There is no infiltrate, effusion or pneumothorax. The heart is normal in size. There is a cardiac pacemaker with leads in expected position. IMPRESSION: No acute pulmonary finding.
[2017-08-28] MEDS: QUEtiapine 25 MG TABLET. PO SCH ×2 (14:21→18:38)
--- NOTE | 2017-08-28 15:18 | PN ---
DATE: 08/26/2017 PSYCHIATRIC PROGRESS NOTE This late entry 08/26/2017 covers elements, not covered in my initial note 08/26/2017. SUBJECTIVE: The patient was staffed at treatment team meeting with entire team and the patient's , Halima, attended the conference. This was in the morning and then I met with him individually in the evening. Reviewed his history at length, had a shower 2 days ago, quite confused, anxious about paying his bill, wanting his wallet. He had not slept for a couple of nights, but then made up for it the previous day sleeping a total of about 12 hours. Today, on 08/26/2017, seemed a little more oriented, knew he was in a hospital in [place]. Appetite is better. REVIEW OF SYSTEMS: No CV, , pulmonary, eye, ENT system symptoms on review. Reliability poor. MENTAL STATUS EXAM: Oriented to himself. Insight, judgment, recent and remote memory, attention, concentration, fund of knowledge poor, consistent with his diagnosis mentioned in my initial note. IMPRESSION: Major neurocognitive disorder, Alzheimer, vascular with depression, delusion, behavioral disturbance. Rest unchanged. PLAN: Continue current psychotropics mentioned in my initial note. Valium is being tapered and discussed all of this at length with the . MAN Johnny HAHN MD DR: HALINA/namita JOB#: [id number] / [id number]
[2017-08-28 16:18] VITALS: BP 116/73
[2017-08-28] MEDS: POTASSIUM CHLORIDE 20 MEQ TABLET.ER. PO SCH (18:40)
--- NOTE | 2017-08-28 20:36 | PDOC ---
Exam Note: Chris Note: Please also refer to the separate dictated note~for this date of service dictated separately.~Patient seen individually. Discussed the patient with Nursing staff reviewed the chart.~Reviewed interim history and current functioning. Reviewed vital signs,~Labs/ Radiology~and current medications noted below. Continue current treatment with the changes noted in the dictated addendum note Assessment: Vital Signs: Vital Signs Date Time Temp Pulse Resp B/P (MAP) Pulse Ox O2 Delivery O2 Flow Rate FiO2 08/28/17 16:18 97.4 58 16 116/73 (87) 97 08/28/17 00:23 Room Air I&O Intake and Output 08/28/17 07:00 Intake Total 960 ml Balance 960 ml Intake Oral 960 ml Labs: Laboratory Tests Test 08/28/17 07:47 White Blood Count 10.7 x10^3/uL (4.0-11.0) Red Blood Count 4.66 x10^6/uL (4.30-5.70) Hemoglobin 13.9 g/dL (13.0-17.5) Hematocrit 42.6 % (39.0-53.0) Mean Corpuscular Volume 91 fL (79-100) Mean Corpuscular Hemoglobin 30 pg (25-35) Mean Corpuscular Hemoglobin Concent 33 g/dL (31-37) Red Cell Distribution Width 16.7 % (11.5-14.5) H Platelet Count 465 x10^3/uL (140-400) H Neutrophils (%) (Auto) 50 % (31-73) Lymphocytes (%) (Auto) 36 % (24-48) Monocytes (%) (Auto) 8 % (0-9) Eosinophils (%) (Auto) 5 % (0-3) H Basophils (%) (Auto) 1 % (0-3) Neutrophils # (Auto) 5.3 x10^3uL (1.8-7.7) Lymphocytes # (Auto) 3.8 x10^3/uL (1.0-4.8) Monocytes # (Auto) 0.9 x10^3/uL (0.0-1.1) Eosinophils # (Auto) 0.5 x10^3/uL (0.0-0.7) Basophils # (Auto) 0.1 x10^3/uL (0.0-0.2) Sodium Level 146 mmol/L (136-145) H Potassium Level 3.4 mmol/L (3.5-5.1) L Chloride Level 107 mmol/L (98-107) Carbon Dioxide Level 30 mmol/L (21-32) Anion Gap 9 (6-14) Blood Urea Nitrogen 14 mg/dL (8-26) Creatinine 0.9 mg/dL (0.7-1.3) Estimated GFR (Cockcroft-Gault) 80.8 BUN/Creatinine Ratio 16 (6-20) Glucose Level 91 mg/dL (70-99) Calcium Level 8.8 mg/dL (8.5-10.1) Total Bilirubin 0.4 mg/dL (0.2-1.0) Aspartate Amino Transferase (AST) 42 U/L (15-37) H Alanine Aminotransferase (ALT) 40 U/L (16-63) Alkaline Phosphatase 67 U/L (46-116) Total Protein 7.5 g/dL (6.4-8.2) Albumin 3.5 g/dL (3.4-5.0) Albumin/Globulin Ratio 0.9 (1.0-1.7) L Current Medications: Meds: Current Medications Acetaminophen (Tylenol) 650 mg PRN Q6HRS PRN PO PAIN / TEMP Last administered on 08/25/17at 07:40; Start 08/20/17 at 18:30 Al Hydroxide/Mg Hydroxide (Mylanta Plus Xs) 15 ml PRN AFTMEALHC PRN PO DYSPEPSIA; Start 08/20/17 at 18:30 Magnesium Hydroxide (Milk Of Magnesia) 2,400 mg PRN QHS PRN PO CONSTIPATION; Start 08/20/17 at 18:30 Albuterol Sulfate (Ventolin) 2.5 mg PRN DAILY PRN NEB SHORTNESS OF BREATH; Start 08/20/17 at 21:15 Aspirin (Children'S Aspirin) 81 mg DAILY PO Last administered on 08/27/17at 20: 15; Start 08/21/17 at 09:00 Acetaminophen/ Hydrocodone Bitart (Lortab 7.5/325) 1 tab PRN TID PRN PO PAIN Last administered on 08/27/17at 22:09; Start 08/20/17 at 21:15 Ibuprofen (Motrin) 200 mg BID PO Last administered on 08/22/17at 07:54; Start at 22:00; Stop 08/23/17 at 07:21; Status DC Latanoprost (Xalatan) 1 drop DAILY OU Last administered on 08/28/17at 08:23; Start 08/21/17 at 09:00 Losartan Potassium (Cozaar) 25 mg DAILY PO Last administered on 08/28/17at 08:24 ; Start 08/21/17 at 09:00 Metoprolol Tartrate (Lopressor) 25 mg DAILY PO Last administered on 08/28/17at 08:22; Start 08/21/17 at 09:00 Rivaroxaban (Xarelto) 20 mg DAILY PO Last administered on 08/28/17 08:21; Start 08/21/17 at 09:00 Rivastigmine (Exelon) 1 patch DAILY TD Last administered on 08/28/17 08:23; Start 08/21/17 at 09:00 Vitamin D (Vitamin D3) 2,000 unit DAILY PO Last administered on 08/28/17at 08:21 ; Start 08/21/17 at 09:00 Vitamin E 200 unit DAILY PO Last administered on 08/28/17at 08:22; Start at 09:00 Memantine (Namenda) 10 mg DAILY PO Last administered on 08/28/17at 08:21; Start 08/21/17 at 09:00 Quetiapine Fumarate (SEROquel) 25 mg PRN QHS PRN PO INSOMNIA Last administered on 08/22/17at 20:01; Start 08/20/17 at 21:30 Diazepam (Valium) 1.5 mg TID PO Last administered on 08/21/17at 14:06; Start at 14:00; Stop 08/21/17 at 18:51; Status DC Diazepam (Valium) 1 mg TID PO ; Start 08/26/17 at 09:00; Stop 08/26/17 at 09:00 ; Status DC Diazepam (Valium) 0.5 mg TID PO ; Start 08/31/17 at 09:00; Stop 08/31/17 at 09: 00; Status DC Mirtazapine (Remeron) 7.5 mg QHS PO Last administered on 08/21/17at 20:43; Start 08/21/17 at 21:00; Stop 08/22/17 at 18:32; Status DC Diazepam (Valium) 2 mg BID@1400,2100 PO Last administered on 08/26/17at 19:56; Start 08/21/17 at 21:00; Stop 08/27/17 at 09:00; Status DC Diazepam (Valium) 1.5 mg DAILYWBKFT PO Last administered on 08/26/17at 07:49; Start 08/22/17 at 08:00; Stop 08/27/17 at 07:59; Status DC Diazepam (Valium) 1.5 mg BID92 PO Last administered on 08/28/17at 14:21; Start 08/27/17 at 09:00; Stop 09/01/17 at 08:59 Diazepam (Valium) 2 mg QHS PO Last administered on 08/27/17at 20:15; Start 08/27 at 21:00; Stop 09/01/17 at 20:59 Mirtazapine (Remeron) 15 mg QHS PO Last administered on 08/23/17at 20:30; Start 08/22/17 at 21:00; Stop 08/24/17 at 18:02; Status DC Quetiapine Fumarate (SEROquel) 12.5 mg TID@0900,1300,1700 PO Last administered on 08/28/17at 18:38; Start 08/23/17 at 09:00 Melatonin 3 mg QHS PO Last administered on 08/27/17at 20:15; Start 08/22/17 at 21:00 Olanzapine (ZyPREXA ZYDIS) 2.5 mg PRN Q2HR PRN PO ANXIETY / AGITATION Last administered on 08/27/17at 20:43; Start 08/22/17 at 18:30 Amitriptyline HCl (Elavil) 25 mg QHS PO Last administered on 08/27/17at 20:15; Start 08/24/17 at 21:00 Potassium Chloride (Klor-Con) 20 meq BIDWMEALS PO ; Start 08/28/17 at 19:00 Active Scripts Active Reported Diazepam 2 Mg Tablet 2 Mg PO TID Xarelto (Rivaroxaban) 10 Mg Tablet 20 Mg PO DAILY Vitamin E (Vitamin E Mixed) 200 Unit Tablet 200 Unit PO DAILY Vitamin D (Cholecalciferol (Vitamin D3)) 2,000 Unit Capsule 2,000 Unit PO DAILY Seroquel (Quetiapine Fumarate) 25 Mg Tablet 25 Mg PO PRN QHS PRN Hydrocodone-Apap 7.5-325 (Hydrocodone Bit/Acetaminophen) 1 Each Tablet 1 Tab PO TID PRN EXELON 9.5mg/24hr (Rivastigmine) 1 Each Patch.td24 1 Patch TD DAILY Namenda (Memantine Hcl) 10 Mg Tablet 10 Mg PO DAILY Metoprolol Tartrate 25 Mg Tablet 25 Mg PO DAILY Losartan Potassium 25 Mg Tablet 25 Mg PO DAILY Xalatan (Latanoprost) 2.5 Ml Drops 1 Drp OU DAILY Ibuprofen 400 Mg Tablet 200 Mg PO BID Aspirin 81 Mg Tab.chew 81 Mg PO DAILY Albuterol Sulfate Neb Soln (Albuterol Sulfate) 2.5 Mg/3 Ml Vial.neb 2.5 Mg NEB PRN DAILY PRN I have reviewed the current psychotropics carefully including drug interactions. Risk benefit ratio favors no change other than as noted in my dictated progress note. 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
[2017-08-28] MEDS: AMITRIPTYLINE HCL 25 MG TABLET PO SCH (20:49)
[2017-08-28] MEDS: MELATONIN 3 MG TABLET PO SCH (20:49)
[2017-08-28] MEDS: HYDROcodone/APAP 7.5/325MG 1 TAB TABLET PO PRN (20:51)
[2017-08-29 05:49] VITALS: BP 122/81
[2017-08-29] MEDS: QUEtiapine 25 MG TABLET. PO SCH ×3 (07:50→17:44)
[2017-08-29] MEDS: RIVASTIGMINE 9.5MG PATCH. TD SCH (07:50)
[2017-08-29] MEDS: CHOLECALCIFEROL (VITAMIN D3) 1,000 UNIT TABLET PO SCH (07:50)
[2017-08-29] MEDS: LATANOPROST 0.005% OPHTH SOLUTION 2.5ML BOTTLE. OU SCH (07:50)
[2017-08-29] MEDS: RIVAROXABAN 10 MG TABLET. PO SCH (07:50)
[2017-08-29] MEDS: VITAMIN E 200 UNIT CAPSULE. PO SCH (07:51)
[2017-08-29] MEDS: LOSARTAN 25 MG TABLET. PO SCH (07:51)
[2017-08-29] MEDS: MEMANTINE 10 MG TABLET. PO SCH (07:51)
[2017-08-29] MEDS: POTASSIUM CHLORIDE 20 MEQ TABLET.ER. PO SCH ×2 (07:51→17:44)
[2017-08-29] MEDS: METOPROLOL TART IMMED RELEASE 25 MG TABLET PO SCH (07:51)
[2017-08-29] MEDS: ASPIRIN 81 MG TAB.CHEW PO SCH (07:52)
[2017-08-29] MEDS: diazePAM 2 MG TABLET PO SCH ×3 (07:54→20:57)
[2017-08-29 16:21] VITALS: BP 159/73
--- NOTE | 2017-08-29 18:53 | PN ---
DATE: 08/27/2017 PSYCHIATRIC PROGRESS NOTE This is a late entry for 08/27/2017, covers elements not covered in my initial note of 08/27/2017. SUBJECTIVE: I met with the patient the evening of 08/27/2017. The patient remains confused, wandering, asking for his , oblivious of where he is. His visited. He was able to separate from her reasonably well. REVIEW OF SYSTEMS: No CV, , pulmonary, eye, ENT system symptoms on review. Reliability poor. MENTAL STATUS EXAM: Oriented to himself. Insight, judgment, recent and remote memory, attention, concentration, fund of knowledge poor, consistent with his diagnosis mentioned in my initial note. IMPRESSION: Major neurocognitive disorder, Alzheimer, vascular with depression, delusion, behavioral disturbance. The patient slept 5 hours previous evening. PLAN: Continue psychotropics mentioned in my initial note. MAN Johnny HAHN MD DR: HALINA/namita JOB#: [id number] / [id number]
--- NOTE | 2017-08-29 20:13 | PDOC ---
Exam Note: Chris Note: Please also refer to the separate dictated note~for this date of service dictated separately.~Patient seen individually. Discussed the patient with Nursing staff reviewed the chart.~Reviewed interim history and current functioning. Reviewed vital signs,~Labs/ Radiology~and current medications noted below. Continue current treatment with the changes noted in the dictated addendum note Assessment: Vital Signs: Vital Signs Date Time Temp Pulse Resp B/P (MAP) Pulse Ox O2 Delivery O2 Flow Rate FiO2 08/29/17 16:21 97.4 66 18 159/73 (101) 96 08/28/17 00:23 Room Air I&O Intake and Output 08/29/17 07:00 Intake Total 960 ml Balance 960 ml Intake Oral 960 ml Current Medications: Meds: Current Medications Acetaminophen (Tylenol) 650 mg PRN Q6HRS PRN PO PAIN / TEMP Last administered on 08/25/17at 07:40; Start 08/20/17 at 18:30 Al Hydroxide/Mg Hydroxide (Mylanta Plus Xs) 15 ml PRN AFTMEALHC PRN PO DYSPEPSIA; Start 08/20/17 at 18:30 Magnesium Hydroxide (Milk Of Magnesia) 2,400 mg PRN QHS PRN PO CONSTIPATION; Start 08/20/17 at 18:30 Albuterol Sulfate (Ventolin) 2.5 mg PRN DAILY PRN NEB SHORTNESS OF BREATH; Start 08/20/17 at 21:15 Aspirin (Children'S Aspirin) 81 mg DAILY PO Last administered on 08/29/17at 07: 52; Start 08/21/17 at 09:00 Acetaminophen/ Hydrocodone Bitart (Lortab 7.5/325) 1 tab PRN TID PRN PO PAIN Last administered on 08/28/17at 20:51; Start 08/20/17 at 21:15 Ibuprofen (Motrin) 200 mg BID PO Last administered on 08/22/17at 07:54; Start at 22:00; Stop 08/23/17 at 07:21; Status DC Latanoprost (Xalatan) 1 drop DAILY OU Last administered on 08/29/17at 07:50; Start 08/21/17 at 09:00 Losartan Potassium (Cozaar) 25 mg DAILY PO Last administered on 08/29/17at 07:51 ; Start 08/21/17 at 09:00 Metoprolol Tartrate (Lopressor) 25 mg DAILY PO Last administered on 08/29/17at 07:51; Start 08/21/17 at 09:00 Rivaroxaban (Xarelto) 20 mg DAILY PO Last administered on 08/29/17at 07:50; Start 08/21/17 at 09:00 Rivastigmine (Exelon) 1 patch DAILY TD Last administered on 08/29/17at 07:50; Start 08/21/17 at 09:00 Vitamin D (Vitamin D3) 2,000 unit DAILY PO Last administered on 08/29/17at 07:50 ; Start 08/21/17 at 09:00 Vitamin E 200 unit DAILY PO Last administered on 08/29/17at 07:51; Start at 09:00 Memantine (Namenda) 10 mg DAILY PO Last administered on 08/29/17at 07:51; Start 08/21/17 at 09:00 Quetiapine Fumarate (SEROquel) 25 mg PRN QHS PRN PO INSOMNIA Last administered on 08/22/17at 20:01; Start 08/20/17 at 21:30 Diazepam (Valium) 1.5 mg TID PO Last administered on 08/21/17at 14:06; Start at 14:00; Stop 08/21/17 at 18:51; Status DC Diazepam (Valium) 1 mg TID PO ; Start 08/26/17 at 09:00; Stop 08/26/17 at 09:00 ; Status DC Diazepam (Valium) 0.5 mg TID PO ; Start 08/31/17 at 09:00; Stop 08/31/17 at 09: 00; Status DC Mirtazapine (Remeron) 7.5 mg QHS PO Last administered on 08/21/17at 20:43; Start 08/21/17 at 21:00; Stop 08/22/17 at 18:32; Status DC Diazepam (Valium) 2 mg BID@1400,2100 PO Last administered on 08/26/17at 19:56; Start 08/21/17 at 21:00; Stop 08/27/17 at 09:00; Status DC Diazepam (Valium) 1.5 mg DAILYWBKFT PO Last administered on 08/26/17at 07:49; Start 08/22/17 at 08:00; Stop 08/27/17 at 07:59; Status DC Diazepam (Valium) 1.5 mg BID92 PO Last administered on 08/29/17at 13:08; Start 08/27/17 at 09:00; Stop 09/01/17 at 08:59 Diazepam (Valium) 2 mg QHS PO Last administered on 08/28/17at 20:52; Start 08/27 at 21:00; Stop 09/01/17 at 20:59 Mirtazapine (Remeron) 15 mg QHS PO Last administered on 08/23/17at 20:30; Start 08/22/17 at 21:00; Stop 08/24/17 at 18:02; Status DC Quetiapine Fumarate (SEROquel) 12.5 mg TID@0900,1300,1700 PO Last administered on 08/29/17at 17:44; Start 08/23/17 at 09:00 Melatonin 3 mg QHS PO Last administered on 08/28/17at 20:49; Start 08/22/17 at 21:00 Olanzapine (ZyPREXA ZYDIS) 2.5 mg PRN Q2HR PRN PO ANXIETY / AGITATION Last administered on 08/27/17at 20:43; Start 08/22/17 at 18:30 Amitriptyline HCl (Elavil) 25 mg QHS PO Last administered on 08/28/17at 20:49; Start 08/24/17 at 21:00; Stop 08/29/17 at 18:50; Status DC Potassium Chloride (Klor-Con) 20 meq BIDWMEALS PO Last administered on at 17:44; Start 08/28/17 at 19:00 Amitriptyline HCl (Elavil) 50 mg QHS PO ; Start 08/29/17 at 21:00 Active Scripts Active Reported Diazepam 2 Mg Tablet 2 Mg PO TID Xarelto (Rivaroxaban) 10 Mg Tablet 20 Mg PO DAILY Vitamin E (Vitamin E Mixed) 200 Unit Tablet 200 Unit PO DAILY Vitamin D (Cholecalciferol (Vitamin D3)) 2,000 Unit Capsule 2,000 Unit PO DAILY Seroquel (Quetiapine Fumarate) 25 Mg Tablet 25 Mg PO PRN QHS PRN Hydrocodone-Apap 7.5-325 (Hydrocodone Bit/Acetaminophen) 1 Each Tablet 1 Tab PO TID PRN EXELON 9.5mg/24hr (Rivastigmine) 1 Each Patch.td24 1 Patch TD DAILY Namenda (Memantine Hcl) 10 Mg Tablet 10 Mg PO DAILY Metoprolol Tartrate 25 Mg Tablet 25 Mg PO DAILY Losartan Potassium 25 Mg Tablet 25 Mg PO DAILY Xalatan (Latanoprost) 2.5 Ml Drops 1 Drp OU DAILY Ibuprofen 400 Mg Tablet 200 Mg PO BID Aspirin 81 Mg Tab.chew 81 Mg PO DAILY Albuterol Sulfate Neb Soln (Albuterol Sulfate) 2.5 Mg/3 Ml Vial.neb 2.5 Mg NEB PRN DAILY PRN I have reviewed the current psychotropics carefully including drug interactions. Risk benefit ratio favors no change other than as noted in my dictated progress note. Diagnosis: Problems: (1) Encounter for medical screening examination (2) Delusion (3) Confusion (4) Suicidal ideation (5) Anxiety disorder (6) Dementia in Alzheimer's disease with depression (7) Dementia in Alzheimer's disease with delusions (8) Dementia, vascular, with delusions (9) Dementia, vascular, with depression (10) Impulse control disorder KRYSTAL HAHN MD Aug 29, 2017 20:13
[2017-08-29] MEDS: MELATONIN 3 MG TABLET PO SCH (20:57)
[2017-08-29] MEDS: AMITRIPTYLINE HCL 25 MG TABLET PO SCH (21:00)
[2017-08-29] MEDS: QUEtiapine 25 MG TABLET. PO PRN (21:01)
[2017-08-30] MEDS: POTASSIUM CHLORIDE 20 MEQ TABLET.ER. PO SCH ×2 (09:26→17:11)
[2017-08-30] MEDS: LATANOPROST 0.005% OPHTH SOLUTION 2.5ML BOTTLE. OU SCH (09:27)
[2017-08-30] MEDS: VITAMIN E 200 UNIT CAPSULE. PO SCH (09:28)
[2017-08-30] MEDS: ASPIRIN 81 MG TAB.CHEW PO SCH (09:28)
[2017-08-30] MEDS: CHOLECALCIFEROL (VITAMIN D3) 1,000 UNIT TABLET PO SCH (09:29)
[2017-08-30] MEDS: MEMANTINE 10 MG TABLET. PO SCH (09:29)
[2017-08-30] MEDS: RIVAROXABAN 10 MG TABLET. PO SCH (09:29)
[2017-08-30] MEDS: QUEtiapine 25 MG TABLET. PO SCH ×3 (09:29→17:10)
[2017-08-30] MEDS: RIVASTIGMINE 9.5MG PATCH. TD SCH (09:29)
[2017-08-30] MEDS: diazePAM 2 MG TABLET PO SCH ×3 (09:32→20:04)
[2017-08-30 09:37] VITALS: BP 147/69
[2017-08-30] MEDS: LOSARTAN 25 MG TABLET. PO SCH (09:38)
[2017-08-30] MEDS: METOPROLOL TART IMMED RELEASE 25 MG TABLET PO SCH (09:38)
[2017-08-30 16:07] VITALS: BP 122/85
[2017-08-30] MEDS: MELATONIN 3 MG TABLET PO SCH (20:04)
[2017-08-30] MEDS: AMITRIPTYLINE HCL 25 MG TABLET PO SCH (20:04)
--- NOTE | 2017-08-30 20:16 | PDOC ---
Exam Note: Chris Note: Please also refer to the separate dictated note~for this date of service dictated separately.~Patient seen individually. Discussed the patient with Nursing staff reviewed the chart.~Reviewed interim history and current functioning. Reviewed vital signs,~Labs/ Radiology~and current medications noted below. Continue current treatment with the changes noted in the dictated addendum note Assessment: Vital Signs: Vital Signs Date Time Temp Pulse Resp B/P (MAP) Pulse Ox O2 Delivery O2 Flow Rate FiO2 08/30/17 16:07 97.8 76 18 122/85 (97) 95 08/28/17 00:23 Room Air I&O Intake and Output 08/30/17 07:00 Intake Total 1320 ml Balance 1320 ml Intake Oral 1320 ml # Voids 1 Current Medications: Meds: Current Medications Acetaminophen (Tylenol) 650 mg PRN Q6HRS PRN PO PAIN / TEMP Last administered on 08/25/17at 07:40; Start 08/20/17 at 18:30 Al Hydroxide/Mg Hydroxide (Mylanta Plus Xs) 15 ml PRN AFTMEALHC PRN PO DYSPEPSIA; Start 08/20/17 at 18:30 Magnesium Hydroxide (Milk Of Magnesia) 2,400 mg PRN QHS PRN PO CONSTIPATION; Start 08/20/17 at 18:30 Albuterol Sulfate (Ventolin) 2.5 mg PRN DAILY PRN NEB SHORTNESS OF BREATH; Start 08/20/17 at 21:15 Aspirin (Children'S Aspirin) 81 mg DAILY PO Last administered on 08/30/17at 09: 28; Start 08/21/17 at 09:00 Acetaminophen/ Hydrocodone Bitart (Lortab 7.5/325) 1 tab PRN TID PRN PO PAIN Last administered on 08/28/17at 20:51; Start 08/20/17 at 21:15 Ibuprofen (Motrin) 200 mg BID PO Last administered on 08/22/17at 07:54; Start at 22:00; Stop 08/23/17 at 07:21; Status DC Latanoprost (Xalatan) 1 drop DAILY OU Last administered on 08/30/17at 09:27; Start 08/21/17 at 09:00 Losartan Potassium (Cozaar) 25 mg DAILY PO Last administered on 08/30/17at 09:38 ; Start 08/21/17 at 09:00 Metoprolol Tartrate (Lopressor) 25 mg DAILY PO Last administered on 08/30/17at 09:38; Start 08/21/17 at 09:00 Rivaroxaban (Xarelto) 20 mg DAILY PO Last administered on 08/30/17at 09:29; Start 08/21/17 at 09:00 Rivastigmine (Exelon) 1 patch DAILY TD Last administered on 08/30/17 09:29; Start 08/21/17 at 09:00 Vitamin D (Vitamin D3) 2,000 unit DAILY PO Last administered on 08/30/17 09:29 ; Start 08/21/17 at 09:00 Vitamin E 200 unit DAILY PO Last administered on 08/30/17at 09:28; Start at 09:00 Memantine (Namenda) 10 mg DAILY PO Last administered on 08/30/17at 09:29; Start 08/21/17 at 09:00 Quetiapine Fumarate (SEROquel) 25 mg PRN QHS PRN PO INSOMNIA Last administered on 08/29/17at 21:01; Start 08/20/17 at 21:30 Diazepam (Valium) 1.5 mg TID PO Last administered on 08/21/17at 14:06; Start at 14:00; Stop 08/21/17 at 18:51; Status DC Diazepam (Valium) 1 mg TID PO ; Start 08/26/17 at 09:00; Stop 08/26/17 at 09:00 ; Status DC Diazepam (Valium) 0.5 mg TID PO ; Start 08/31/17 at 09:00; Stop 08/31/17 at 09: 00; Status DC Mirtazapine (Remeron) 7.5 mg QHS PO Last administered on 08/21/17at 20:43; Start 08/21/17 at 21:00; Stop 08/22/17 at 18:32; Status DC Diazepam (Valium) 2 mg BID@1400,2100 PO Last administered on 08/26/17at 19:56; Start 08/21/17 at 21:00; Stop 08/27/17 at 09:00; Status DC Diazepam (Valium) 1.5 mg DAILYWBKFT PO Last administered on 08/26/17at 07:49; Start 08/22/17 at 08:00; Stop 08/27/17 at 07:59; Status DC Diazepam (Valium) 1.5 mg BID92 PO Last administered on 08/30/17at 13:45; Start 08/27/17 at 09:00; Stop 09/01/17 at 08:59 Diazepam (Valium) 2 mg QHS PO Last administered on 08/30/17at 20:04; Start 08/27 at 21:00; Stop 09/01/17 at 20:59 Mirtazapine (Remeron) 15 mg QHS PO Last administered on 08/23/17at 20:30; Start 08/22/17 at 21:00; Stop 08/24/17 at 18:02; Status DC Quetiapine Fumarate (SEROquel) 12.5 mg TID@0900,1300,1700 PO Last administered on 08/30/17at 17:10; Start 08/23/17 at 09:00 Melatonin 3 mg QHS PO Last administered on 08/30/17at 20:04; Start 08/22/17 at 21:00 Olanzapine (ZyPREXA ZYDIS) 2.5 mg PRN Q2HR PRN PO ANXIETY / AGITATION Last administered on 08/29/17at 21:01; Start 08/22/17 at 18:30 Amitriptyline HCl (Elavil) 25 mg QHS PO Last administered on 08/28/17at 20:49; Start 08/24/17 at 21:00; Stop 08/29/17 at 18:50; Status DC Potassium Chloride (Klor-Con) 20 meq BIDWMEALS PO Last administered on at 17:11; Start 08/28/17 at 19:00 Amitriptyline HCl (Elavil) 50 mg QHS PO Last administered on 08/30/17at 20:04; Start 08/29/17 at 21:00 Active Scripts Active Reported Diazepam 2 Mg Tablet 2 Mg PO TID Xarelto (Rivaroxaban) 10 Mg Tablet 20 Mg PO DAILY Vitamin E (Vitamin E Mixed) 200 Unit Tablet 200 Unit PO DAILY Vitamin D (Cholecalciferol (Vitamin D3)) 2,000 Unit Capsule 2,000 Unit PO DAILY Seroquel (Quetiapine Fumarate) 25 Mg Tablet 25 Mg PO PRN QHS PRN Hydrocodone-Apap 7.5-325 (Hydrocodone Bit/Acetaminophen) 1 Each Tablet 1 Tab PO TID PRN EXELON 9.5mg/24hr (Rivastigmine) 1 Each Patch.td24 1 Patch TD DAILY Namenda (Memantine Hcl) 10 Mg Tablet 10 Mg PO DAILY Metoprolol Tartrate 25 Mg Tablet 25 Mg PO DAILY Losartan Potassium 25 Mg Tablet 25 Mg PO DAILY Xalatan (Latanoprost) 2.5 Ml Drops 1 Drp OU DAILY Ibuprofen 400 Mg Tablet 200 Mg PO BID Aspirin 81 Mg Tab.chew 81 Mg PO DAILY Albuterol Sulfate Neb Soln (Albuterol Sulfate) 2.5 Mg/3 Ml Vial.neb 2.5 Mg NEB PRN DAILY PRN I have reviewed the current psychotropics carefully including drug interactions. Risk benefit ratio favors no change other than as noted in my dictated progress note. Diagnosis: Problems: (1) Encounter for medical screening examination (2) Delusion (3) Confusion (4) Suicidal ideation (5) Anxiety disorder (6) Dementia in Alzheimer's disease with depression (7) Dementia in Alzheimer's disease with delusions (8) Dementia, vascular, with delusions (9) Dementia, vascular, with depression (10) Impulse control disorder KRYSTAL HAHN MD Aug 30, 2017 20:16
--- NOTE | 2017-08-31 00:23 | PN ---
DATE: 08/28/2017 PSYCHIATRIC PROGRESS NOTE This is a late entry for 08/28/2017, covers elements not covered in my initial note of 08/28/2017. SUBJECTIVE: The patient was seen individually the evening of 08/28/2017. Overall, the patient slept poorly last evening. We may need to increase the Elavil. I will give it another day before deciding, anxious, confused. REVIEW OF SYSTEMS: No CV, , pulmonary, eye, ENT system symptoms on review. Reliability poor. MENTAL STATUS EXAM: Oriented to himself. Insight, judgment, recent and remote memory, attention, concentration, fund of knowledge poor, consistent with his diagnosis mentioned in my initial note. IMPRESSION: Major neurocognitive disorder, Alzheimer, vascular with depression, delusion, behavioral disturbance; anxiety disorder, unspecified; impulse control disorder, unspecified. Rest unchanged. PLAN: Continue current psychotropics, may need to increase the Elavil in due course. KRYSTAL HAHN MD DR: HALINA/namita JOB#: [id number] / [id number]
--- NOTE | 2017-08-31 00:41 | PN ---
DATE: 08/29/2017 This is a late entry for 08/29/2017 covers elements not covered in my initial note of 08/29/2017. SUBJECTIVE: I met with the patient in the evening of 08/29/2017. The patient slept 5-1/4 hours previous evening, wandering, restless, anxious, redirectable, compliant with medications. REVIEW OF SYSTEMS: No CV, , pulmonary, eye, ENT system symptoms on review. Reliability poor. MENTAL STATUS EXAM: Oriented to himself. Insight, judgment, recent and remote memory, attention, concentration, fund of knowledge poor, consistent with his diagnosis mentioned in my initial note. PLAN: Increase amitriptyline from 25 mg at bedtime to 50 mg at bedtime. Continue rest psychotropics mentioned in my initial note. MAN Johnny HAHN MD DR: HALINA/namita JOB#: [id number] / [id number]
[2017-08-31 06:23] VITALS: BP 126/80
[2017-08-31] MEDS: MEMANTINE 10 MG TABLET. PO SCH (07:54)
[2017-08-31] MEDS: RIVAROXABAN 10 MG TABLET. PO SCH (07:54)
[2017-08-31] MEDS: VITAMIN E 200 UNIT CAPSULE. PO SCH (07:54)
[2017-08-31] MEDS: QUEtiapine 25 MG TABLET. PO SCH ×3 (07:55→18:07)
[2017-08-31] MEDS: ASPIRIN 81 MG TAB.CHEW PO SCH (07:55)
[2017-08-31] MEDS: CHOLECALCIFEROL (VITAMIN D3) 1,000 UNIT TABLET PO SCH (07:55)
[2017-08-31] MEDS: RIVASTIGMINE 9.5MG PATCH. TD SCH (07:55)
[2017-08-31] MEDS: POTASSIUM CHLORIDE 20 MEQ TABLET.ER. PO SCH ×2 (07:56→18:07)
[2017-08-31] MEDS: LATANOPROST 0.005% OPHTH SOLUTION 2.5ML BOTTLE. OU SCH (07:59)
[2017-08-31] MEDS: diazePAM 2 MG TABLET PO SCH ×3 (07:59→19:24)
[2017-08-31 08:08] VITALS: BP 132/83
[2017-08-31] MEDS: METOPROLOL TART IMMED RELEASE 25 MG TABLET PO SCH (08:10)
[2017-08-31] MEDS: LOSARTAN 25 MG TABLET. PO SCH (08:10)
[2017-08-31] MEDS ORDERED: diazePAM 2 MG TABLET PO SCH (09:00)
[2017-08-31] MEDS: MELATONIN 3 MG TABLET PO SCH (19:22)
[2017-08-31] MEDS: AMITRIPTYLINE HCL 25 MG TABLET PO SCH (19:22)
--- NOTE | 2017-08-31 20:18 | PDOC ---
Exam Note: Chris Note: Please also refer to the separate dictated note~for this date of service dictated separately.~Patient seen individually. Discussed the patient with Nursing staff reviewed the chart.~Reviewed interim history and current functioning. Reviewed vital signs,~Labs/ Radiology~and current medications noted below. Continue current treatment with the changes noted in the dictated addendum note Assessment: Vital Signs: Vital Signs Date Time Temp Pulse Resp B/P (MAP) Pulse Ox O2 Delivery O2 Flow Rate FiO2 08/31/17 08:10 64 132/83 08/31/17 06:23 97.0 18 96 08/28/17 00:23 Room Air I&O Intake and Output 08/31/17 07:00 Intake Total 1020 ml Balance 1020 ml Intake Oral 1020 ml # Voids 1 Current Medications: Meds: Current Medications Acetaminophen (Tylenol) 650 mg PRN Q6HRS PRN PO PAIN / TEMP Last administered on 08/25/17at 07:40; Start 08/20/17 at 18:30 Al Hydroxide/Mg Hydroxide (Mylanta Plus Xs) 15 ml PRN AFTMEALHC PRN PO DYSPEPSIA; Start 08/20/17 at 18:30 Magnesium Hydroxide (Milk Of Magnesia) 2,400 mg PRN QHS PRN PO CONSTIPATION; Start 08/20/17 at 18:30 Albuterol Sulfate (Ventolin) 2.5 mg PRN DAILY PRN NEB SHORTNESS OF BREATH; Start 08/20/17 at 21:15 Aspirin (Children'S Aspirin) 81 mg DAILY PO Last administered on 08/31/17at 07: 55; Start 08/21/17 at 09:00 Acetaminophen/ Hydrocodone Bitart (Lortab 7.5/325) 1 tab PRN TID PRN PO PAIN Last administered on 08/28/17at 20:51; Start 08/20/17 at 21:15 Ibuprofen (Motrin) 200 mg BID PO Last administered on 08/22/17at 07:54; Start at 22:00; Stop 08/23/17 at 07:21; Status DC Latanoprost (Xalatan) 1 drop DAILY OU Last administered on 08/31/17at 07:59; Start 08/21/17 at 09:00 Losartan Potassium (Cozaar) 25 mg DAILY PO Last administered on 08/31/17at 08:10 ; Start 08/21/17 at 09:00 Metoprolol Tartrate (Lopressor) 25 mg DAILY PO Last administered on 08/31/17at 08:10; Start 08/21/17 at 09:00 Rivaroxaban (Xarelto) 20 mg DAILY PO Last administered on 08/31/17at 07:54; Start 08/21/17 at 09:00 Rivastigmine (Exelon) 1 patch DAILY TD Last administered on 08/31/17at 07:55; Start 08/21/17 at 09:00 Vitamin D (Vitamin D3) 2,000 unit DAILY PO Last administered on 08/31/17 07:55 ; Start 08/21/17 at 09:00 Vitamin E 200 unit DAILY PO Last administered on 08/31/17at 07:54; Start at 09:00 Memantine (Namenda) 10 mg DAILY PO Last administered on 08/31/17at 07:54; Start 08/21/17 at 09:00 Quetiapine Fumarate (SEROquel) 25 mg PRN QHS PRN PO INSOMNIA Last administered on 08/29/17at 21:01; Start 08/20/17 at 21:30 Diazepam (Valium) 1.5 mg TID PO Last administered on 08/21/17at 14:06; Start at 14:00; Stop 08/21/17 at 18:51; Status DC Diazepam (Valium) 1 mg TID PO ; Start 08/26/17 at 09:00; Stop 08/26/17 at 09:00 ; Status DC Diazepam (Valium) 0.5 mg TID PO ; Start 08/31/17 at 09:00; Stop 08/31/17 at 09: 00; Status DC Mirtazapine (Remeron) 7.5 mg QHS PO Last administered on 08/21/17at 20:43; Start 08/21/17 at 21:00; Stop 08/22/17 at 18:32; Status DC Diazepam (Valium) 2 mg BID@1400,2100 PO Last administered on 08/26/17at 19:56; Start 08/21/17 at 21:00; Stop 08/27/17 at 09:00; Status DC Diazepam (Valium) 1.5 mg DAILYWBKFT PO Last administered on 08/26/17at 07:49; Start 08/22/17 at 08:00; Stop 08/27/17 at 07:59; Status DC Diazepam (Valium) 1.5 mg BID92 PO Last administered on 08/31/17at 13:30; Start 08/27/17 at 09:00; Stop 09/01/17 at 08:59 Diazepam (Valium) 2 mg QHS PO Last administered on 08/31/17at 19:24; Start 08/27 at 21:00; Stop 09/01/17 at 20:59 Mirtazapine (Remeron) 15 mg QHS PO Last administered on 08/23/17at 20:30; Start 08/22/17 at 21:00; Stop 08/24/17 at 18:02; Status DC Quetiapine Fumarate (SEROquel) 12.5 mg TID@0900,1300,1700 PO Last administered on 08/31/17at 18:07; Start 08/23/17 at 09:00 Melatonin 3 mg QHS PO Last administered on 08/31/17at 19:22; Start 08/22/17 at 21:00 Olanzapine (ZyPREXA ZYDIS) 2.5 mg PRN Q2HR PRN PO ANXIETY / AGITATION Last administered on 08/29/17at 21:01; Start 08/22/17 at 18:30 Amitriptyline HCl (Elavil) 25 mg QHS PO Last administered on 08/28/17at 20:49; Start 08/24/17 at 21:00; Stop 08/29/17 at 18:50; Status DC Potassium Chloride (Klor-Con) 20 meq BIDWMEALS PO Last administered on at 18:07; Start 08/28/17 at 19:00 Amitriptyline HCl (Elavil) 50 mg QHS PO Last administered on 08/31/17at 19:22; Start 08/29/17 at 21:00 Sertraline HCl (Zoloft) 25 mg DAILY PO ; Start 09/01/17 at 09:00; Stop 09/01/17 at 09:00; Status DC Bupropion HCl (Wellbutrin Xl) 150 mg DAILY PO ; Start 09/01/17 at 09:00 Active Scripts Active Reported Diazepam 2 Mg Tablet 2 Mg PO TID Xarelto (Rivaroxaban) 10 Mg Tablet 20 Mg PO DAILY Vitamin E (Vitamin E Mixed) 200 Unit Tablet 200 Unit PO DAILY Vitamin D (Cholecalciferol (Vitamin D3)) 2,000 Unit Capsule 2,000 Unit PO DAILY Seroquel (Quetiapine Fumarate) 25 Mg Tablet 25 Mg PO PRN QHS PRN Hydrocodone-Apap 7.5-325 (Hydrocodone Bit/Acetaminophen) 1 Each Tablet 1 Tab PO TID PRN EXELON 9.5mg/24hr (Rivastigmine) 1 Each Patch.td24 1 Patch TD DAILY Namenda (Memantine Hcl) 10 Mg Tablet 10 Mg PO DAILY Metoprolol Tartrate 25 Mg Tablet 25 Mg PO DAILY Losartan Potassium 25 Mg Tablet 25 Mg PO DAILY Xalatan (Latanoprost) 2.5 Ml Drops 1 Drp OU DAILY Ibuprofen 400 Mg Tablet 200 Mg PO BID Aspirin 81 Mg Tab.chew 81 Mg PO DAILY Albuterol Sulfate Neb Soln (Albuterol Sulfate) 2.5 Mg/3 Ml Vial.neb 2.5 Mg NEB PRN DAILY PRN I have reviewed the current psychotropics carefully including drug interactions. Risk benefit ratio favors no change other than as noted in my dictated progress note. 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
[2017-08-31] MEDS: QUEtiapine 25 MG TABLET. PO PRN (23:06)
[2017-08-31] MEDS: ACETAMINOPHEN 325 MG TABLET PO PRN (23:06)
--- NOTE | 2017-09-01 00:40 | PN ---
DATE: PSYCHIATRIC PROGRESS NOTE This is a late entry of 08/30/2017 covers elements not covered in my initial note of 08/30/2017. I met with the patient evening of 08/30/2017. HISTORY OF PRESENT ILLNESS: The patient sleeps between 5-1/2 and 7 hours at night, slept early in the morning. Remains confused, delusional, wandering, exit seeking, obsessing about money and vehicles per nursing report. REVIEW OF SYSTEMS: No CV, , pulmonary, eye, ENT system symptoms on review. Reliability poor. MENTAL STATUS EXAM: Oriented to himself. Insight, judgment, recent and remote memory, attention, concentration, fund of knowledge poor, consistent with his diagnosis mentioned in my initial note. IMPRESSION: Major neurocognitive disorder, Alzheimer, vascular with delusion, depression, behavioral disturbance. PLAN: Continue to taper the Valium. Maintain rest of the psychotropics as mentioned in my initial note. MAN Johnny HAHN MD DR: HALINA/namita JOB#: [id number] / [id number]
[2017-09-01 06:33] VITALS: BP 132/80
[2017-09-01] MEDS: POTASSIUM CHLORIDE 20 MEQ TABLET.ER. PO SCH ×2 (08:39→16:25)
[2017-09-01] MEDS: CHOLECALCIFEROL (VITAMIN D3) 1,000 UNIT TABLET PO SCH (08:39)
[2017-09-01] MEDS: LOSARTAN 25 MG TABLET. PO SCH (08:39)
[2017-09-01] MEDS: RIVAROXABAN 10 MG TABLET. PO SCH (08:40)
[2017-09-01] MEDS: ASPIRIN 81 MG TAB.CHEW PO SCH (08:40)
[2017-09-01] MEDS: METOPROLOL TART IMMED RELEASE 25 MG TABLET PO SCH (08:40)
[2017-09-01] MEDS: LATANOPROST 0.005% OPHTH SOLUTION 2.5ML BOTTLE. OU SCH (08:41)
[2017-09-01] MEDS: QUEtiapine 25 MG TABLET. PO SCH ×3 (08:41→16:26)
[2017-09-01] MEDS: MEMANTINE 10 MG TABLET. PO SCH (08:41)
[2017-09-01] MEDS: RIVASTIGMINE 9.5MG PATCH. TD SCH (08:41)
[2017-09-01] MEDS: buPROPion XL 150 MG TAB.ER.24H PO SCH (08:43)
[2017-09-01] MEDS: HYDROcodone/APAP 7.5/325MG 1 TAB TABLET PO PRN (08:44)
[2017-09-01] MEDS: VITAMIN E 200 UNIT CAPSULE. PO SCH (08:45)
[2017-09-01] MEDS ORDERED: SERTRALINE 25 MG TABLET. PO SCH (09:00)
[2017-09-01 15:57] VITALS: BP 95/56
[2017-09-01] MEDS: AMITRIPTYLINE HCL 25 MG TABLET PO SCH (19:34)
[2017-09-01] MEDS: MELATONIN 3 MG TABLET PO SCH (19:34)
--- NOTE | 2017-09-01 20:17 | PDOC ---
Exam Note: Chris Note: Please also refer to the separate dictated note~for this date of service dictated separately.~Patient seen individually. Discussed the patient with Nursing staff reviewed the chart.~Reviewed interim history and current functioning. Reviewed vital signs,~Labs/ Radiology~and current medications noted below. Continue current treatment with the changes noted in the dictated addendum note Assessment: Vital Signs: Vital Signs Date Time Temp Pulse Resp B/P (MAP) Pulse Ox O2 Delivery O2 Flow Rate FiO2 09/01/17 15:57 98.2 67 18 95/56 (69) 96 09/01/17 09:50 Room Air I&O Intake and Output 09/01/17 07:00 Intake Total 1060 ml Balance 1060 ml Intake Oral 1060 ml Current Medications: Meds: Current Medications Acetaminophen (Tylenol) 650 mg PRN Q6HRS PRN PO PAIN / TEMP Last administered on 08/31/17at 23:06; Start 08/20/17 at 18:30 Al Hydroxide/Mg Hydroxide (Mylanta Plus Xs) 15 ml PRN AFTMEALHC PRN PO DYSPEPSIA; Start 08/20/17 at 18:30 Magnesium Hydroxide (Milk Of Magnesia) 2,400 mg PRN QHS PRN PO CONSTIPATION; Start 08/20/17 at 18:30 Albuterol Sulfate (Ventolin) 2.5 mg PRN DAILY PRN NEB SHORTNESS OF BREATH; Start 08/20/17 at 21:15 Aspirin (Children'S Aspirin) 81 mg DAILY PO Last administered on 09/01/17at 08: 40; Start 08/21/17 at 09:00 Acetaminophen/ Hydrocodone Bitart (Lortab 7.5/325) 1 tab PRN TID PRN PO PAIN Last administered on 09/01/17at 08:44; Start 08/20/17 at 21:15 Ibuprofen (Motrin) 200 mg BID PO Last administered on 08/22/17 07:54; Start at 22:00; Stop 08/23/17 at 07:21; Status DC Latanoprost (Xalatan) 1 drop DAILY OU Last administered on 09/01/17at 08:41; Start 08/21/17 at 09:00 Losartan Potassium (Cozaar) 25 mg DAILY PO Last administered on 09/01/17at 08:39 ; Start 08/21/17 at 09:00 Metoprolol Tartrate (Lopressor) 25 mg DAILY PO Last administered on 09/01/17at 08:40; Start 08/21/17 at 09:00 Rivaroxaban (Xarelto) 20 mg DAILY PO Last administered on 09/01/17at 08:40; Start 08/21/17 at 09:00 Rivastigmine (Exelon) 1 patch DAILY TD Last administered on 09/01/17at 08:41; Start 08/21/17 at 09:00 Vitamin D (Vitamin D3) 2,000 unit DAILY PO Last administered on 09/01/17at 08:39 ; Start 08/21/17 at 09:00 Vitamin E 200 unit DAILY PO Last administered on 09/01/17at 08:45; Start at 09:00 Memantine (Namenda) 10 mg DAILY PO Last administered on 09/01/17at 08:41; Start 08/21/17 at 09:00 Quetiapine Fumarate (SEROquel) 25 mg PRN QHS PRN PO INSOMNIA Last administered on 08/31/17at 23:06; Start 08/20/17 at 21:30 Diazepam (Valium) 1.5 mg TID PO Last administered on 08/21/17at 14:06; Start at 14:00; Stop 08/21/17 at 18:51; Status DC Diazepam (Valium) 1 mg TID PO ; Start 08/26/17 at 09:00; Stop 08/26/17 at 09:00 ; Status DC Diazepam (Valium) 0.5 mg TID PO ; Start 08/31/17 at 09:00; Stop 08/31/17 at 09: 00; Status DC Mirtazapine (Remeron) 7.5 mg QHS PO Last administered on 08/21/17at 20:43; Start 08/21/17 at 21:00; Stop 08/22/17 at 18:32; Status DC Diazepam (Valium) 2 mg BID@1400,2100 PO Last administered on 08/26/17at 19:56; Start 08/21/17 at 21:00; Stop 08/27/17 at 09:00; Status DC Diazepam (Valium) 1.5 mg DAILYWBKFT PO Last administered on 08/26/17at 07:49; Start 08/22/17 at 08:00; Stop 08/27/17 at 07:59; Status DC Diazepam (Valium) 1.5 mg BID92 PO Last administered on 08/31/17at 13:30; Start 08/27/17 at 09:00; Stop 09/01/17 at 08:59; Status DC Diazepam (Valium) 2 mg QHS PO Last administered on 08/31/17at 19:24; Start 08/27 at 21:00; Stop 09/01/17 at 20:59 Mirtazapine (Remeron) 15 mg QHS PO Last administered on 08/23/17at 20:30; Start 08/22/17 at 21:00; Stop 08/24/17 at 18:02; Status DC Quetiapine Fumarate (SEROquel) 12.5 mg TID@0900,1300,1700 PO Last administered on 09/01/17at 16:26; Start 08/23/17 at 09:00 Melatonin 3 mg QHS PO Last administered on 08/31/17at 19:22; Start 08/22/17 at 21:00; Stop 09/01/17 at 18:15; Status DC Olanzapine (ZyPREXA ZYDIS) 2.5 mg PRN Q2HR PRN PO ANXIETY / AGITATION Last administered on 08/29/17at 21:01; Start 08/22/17 at 18:30 Amitriptyline HCl (Elavil) 25 mg QHS PO Last administered on 08/28/17at 20:49; Start 08/24/17 at 21:00; Stop 08/29/17 at 18:50; Status DC Potassium Chloride (Klor-Con) 20 meq BIDWMEALS PO Last administered on at 16:25; Start 08/28/17 at 19:00 Amitriptyline HCl (Elavil) 50 mg QHS PO Last administered on 09/01/17at 19:34; Start 08/29/17 at 21:00 Sertraline HCl (Zoloft) 25 mg DAILY PO ; Start 09/01/17 at 09:00; Stop 09/01/17 at 09:00; Status DC Bupropion HCl (Wellbutrin Xl) 150 mg DAILY PO Last administered on 09/01/17at 08 :43; Start 09/01/17 at 09:00 Melatonin 6 mg QHS PO Last administered on 09/01/17at 19:34; Start 09/01/17 at 21:00 Active Scripts Active Reported Diazepam 2 Mg Tablet 2 Mg PO TID Xarelto (Rivaroxaban) 10 Mg Tablet 20 Mg PO DAILY Vitamin E (Vitamin E Mixed) 200 Unit Tablet 200 Unit PO DAILY Vitamin D (Cholecalciferol (Vitamin D3)) 2,000 Unit Capsule 2,000 Unit PO DAILY Seroquel (Quetiapine Fumarate) 25 Mg Tablet 25 Mg PO PRN QHS PRN Hydrocodone-Apap 7.5-325 (Hydrocodone Bit/Acetaminophen) 1 Each Tablet 1 Tab PO TID PRN EXELON 9.5mg/24hr (Rivastigmine) 1 Each Patch.td24 1 Patch TD DAILY Namenda (Memantine Hcl) 10 Mg Tablet 10 Mg PO DAILY Metoprolol Tartrate 25 Mg Tablet 25 Mg PO DAILY Losartan Potassium 25 Mg Tablet 25 Mg PO DAILY Xalatan (Latanoprost) 2.5 Ml Drops 1 Drp OU DAILY Ibuprofen 400 Mg Tablet 200 Mg PO BID Aspirin 81 Mg Tab.chew 81 Mg PO DAILY Albuterol Sulfate Neb Soln (Albuterol Sulfate) 2.5 Mg/3 Ml Vial.neb 2.5 Mg NEB PRN DAILY PRN I have reviewed the current psychotropics carefully including drug interactions. Risk benefit ratio favors no change other than as noted in my dictated progress note. Diagnosis: Problems: (1) Delusion (2) Confusion (3) Suicidal ideation (4) Anxiety disorder (5) Dementia in Alzheimer's disease with depression (6) Dementia in Alzheimer's disease with delusions (7) Dementia, vascular, with delusions (8) Dementia, vascular, with depression (9) Impulse control disorder KRYSTAL HAHN MD Sep 01, 2017 20:17
--- NOTE | 2017-09-02 01:59 | PN ---
DATE: 08/31/2017 This is a late entry for 08/31/2017, covers elements not covered in my initial note of 08/31/2017. SUBJECTIVE: I met with the patient the evening of 08/31/2017. The patient slept 5 hours previous evening, somewhat delusional previous night, believed he was here to donate a big leong, did not go to sleep until post-midnight, tired during the day. REVIEW OF SYSTEMS: No CV, , pulmonary, eye, ENT system symptoms on review. Reliability poor. MENTAL STATUS EXAMINATION: Oriented to himself. Insight, judgment, recent and remote memory, attention, concentration, fund of knowledge poor, consistent with his diagnosis mentioned in my initial note. IMPRESSION: Major neurocognitive disorder; Alzheimer, vascular with depression, delusion, behavioral disturbance. PLAN: Continue current psychotropics, considered adding Zoloft as an antidepressant and antianxiety agent, but HE IS ALLERGIC TO ZOLOFT TO MOST OTHER SSRIs. Consequently, we will start him on Wellbutrin-XL 150 mg in the morning. Adjust further as clinically indicated. Reviewed other options and drug interactions at length. KRYSTAL HAHN MD DR: HALINA/namita JOB#: [id number] / [id number]
[2017-09-02 06:02] VITALS: BP 113/75
[2017-09-02] MEDS: LOSARTAN 25 MG TABLET. PO SCH (08:11)
[2017-09-02] MEDS: POTASSIUM CHLORIDE 20 MEQ TABLET.ER. PO SCH ×2 (08:11→16:15)
[2017-09-02] MEDS: RIVAROXABAN 10 MG TABLET. PO SCH (08:11)
[2017-09-02] MEDS: buPROPion XL 150 MG TAB.ER.24H PO SCH (08:11)
[2017-09-02] MEDS: METOPROLOL TART IMMED RELEASE 25 MG TABLET PO SCH (08:12)
[2017-09-02] MEDS: CHOLECALCIFEROL (VITAMIN D3) 1,000 UNIT TABLET PO SCH (08:13)
[2017-09-02] MEDS: QUEtiapine 25 MG TABLET. PO SCH ×3 (08:13→16:15)
[2017-09-02] MEDS: ASPIRIN 81 MG TAB.CHEW PO SCH (08:13)
[2017-09-02] MEDS: MEMANTINE 10 MG TABLET. PO SCH (08:13)
[2017-09-02] MEDS: LATANOPROST 0.005% OPHTH SOLUTION 2.5ML BOTTLE. OU SCH (08:14)
[2017-09-02] MEDS: VITAMIN E 200 UNIT CAPSULE. PO SCH (08:14)
[2017-09-02] MEDS: RIVASTIGMINE 9.5MG PATCH. TD SCH (08:15)
[2017-09-02 16:07] VITALS: BP 115/70
[2017-09-02] MEDS: MELATONIN 3 MG TABLET PO SCH (19:29)
[2017-09-02] MEDS: AMITRIPTYLINE HCL 25 MG TABLET PO SCH (19:30)
--- NOTE | 2017-09-02 20:05 | PDOC ---
Exam Note: Chris Note: Please also refer to the separate dictated note~for this date of service dictated separately.~Patient seen individually. Discussed the patient with Nursing staff reviewed the chart.~Reviewed interim history and current functioning. Reviewed vital signs,~Labs/ Radiology~and current medications noted below. Continue current treatment with the changes noted in the dictated addendum note Assessment: Vital Signs: Vital Signs Date Time Temp Pulse Resp B/P (MAP) Pulse Ox O2 Delivery O2 Flow Rate FiO2 09/02/17 16:07 97.9 74 20 115/70 (85) 94 09/01/17 09:50 Room Air I&O Intake and Output 09/02/17 07:00 Intake Total 488 ml Balance 488 ml Intake Oral 488 ml Current Medications: Meds: Current Medications Acetaminophen (Tylenol) 650 mg PRN Q6HRS PRN PO PAIN / TEMP Last administered on 08/31/17at 23:06; Start 08/20/17 at 18:30 Al Hydroxide/Mg Hydroxide (Mylanta Plus Xs) 15 ml PRN AFTMEALHC PRN PO DYSPEPSIA; Start 08/20/17 at 18:30 Magnesium Hydroxide (Milk Of Magnesia) 2,400 mg PRN QHS PRN PO CONSTIPATION; Start 08/20/17 at 18:30 Albuterol Sulfate (Ventolin) 2.5 mg PRN DAILY PRN NEB SHORTNESS OF BREATH; Start 08/20/17 at 21:15 Aspirin (Children'S Aspirin) 81 mg DAILY PO Last administered on 09/02/17at 08: 13; Start 08/21/17 at 09:00 Acetaminophen/ Hydrocodone Bitart (Lortab 7.5/325) 1 tab PRN TID PRN PO PAIN Last administered on 09/01/17at 08:44; Start 08/20/17 at 21:15 Ibuprofen (Motrin) 200 mg BID PO Last administered on 08/22/17at 07:54; Start at 22:00; Stop 08/23/17 at 07:21; Status DC Latanoprost (Xalatan) 1 drop DAILY OU Last administered on 09/02/17at 08:14; Start 08/21/17 at 09:00 Losartan Potassium (Cozaar) 25 mg DAILY PO Last administered on 09/02/17at 08:11 ; Start 08/21/17 at 09:00 Metoprolol Tartrate (Lopressor) 25 mg DAILY PO Last administered on 09/02/17at 08:12; Start 08/21/17 at 09:00 Rivaroxaban (Xarelto) 20 mg DAILY PO Last administered on 09/02/17at 08:11; Start 08/21/17 at 09:00 Rivastigmine (Exelon) 1 patch DAILY TD Last administered on 09/02/17 08:15; Start 08/21/17 at 09:00 Vitamin D (Vitamin D3) 2,000 unit DAILY PO Last administered on 09/02/17 08:13 ; Start 08/21/17 at 09:00 Vitamin E 200 unit DAILY PO Last administered on 09/02/17 08:14; Start at 09:00 Memantine (Namenda) 10 mg DAILY PO Last administered on 09/02/17at 08:13; Start 08/21/17 at 09:00 Quetiapine Fumarate (SEROquel) 25 mg PRN QHS PRN PO INSOMNIA Last administered on 08/31/17at 23:06; Start 08/20/17 at 21:30 Diazepam (Valium) 1.5 mg TID PO Last administered on 08/21/17at 14:06; Start at 14:00; Stop 08/21/17 at 18:51; Status DC Diazepam (Valium) 1 mg TID PO ; Start 08/26/17 at 09:00; Stop 08/26/17 at 09:00 ; Status DC Diazepam (Valium) 0.5 mg TID PO ; Start 08/31/17 at 09:00; Stop 08/31/17 at 09: 00; Status DC Mirtazapine (Remeron) 7.5 mg QHS PO Last administered on 08/21/17at 20:43; Start 08/21/17 at 21:00; Stop 08/22/17 at 18:32; Status DC Diazepam (Valium) 2 mg BID@1400,2100 PO Last administered on 08/26/17at 19:56; Start 08/21/17 at 21:00; Stop 08/27/17 at 09:00; Status DC Diazepam (Valium) 1.5 mg DAILYWBKFT PO Last administered on 08/26/17at 07:49; Start 08/22/17 at 08:00; Stop 08/27/17 at 07:59; Status DC Diazepam (Valium) 1.5 mg BID92 PO Last administered on 08/31/17at 13:30; Start 08/27/17 at 09:00; Stop 09/01/17 at 08:59; Status DC Diazepam (Valium) 2 mg QHS PO Last administered on 08/31/17at 19:24; Start 08/27 at 21:00; Stop 09/01/17 at 21:00; Status DC Mirtazapine (Remeron) 15 mg QHS PO Last administered on 08/23/17at 20:30; Start 08/22/17 at 21:00; Stop 08/24/17 at 18:02; Status DC Quetiapine Fumarate (SEROquel) 12.5 mg TID@0900,1300,1700 PO Last administered on 09/02/17at 16:15; Start 08/23/17 at 09:00 Melatonin 3 mg QHS PO Last administered on 08/31/17at 19:22; Start 08/22/17 at 21:00; Stop 09/01/17 at 18:15; Status DC Olanzapine (ZyPREXA ZYDIS) 2.5 mg PRN Q2HR PRN PO ANXIETY / AGITATION Last administered on 08/29/17at 21:01; Start 08/22/17 at 18:30 Amitriptyline HCl (Elavil) 25 mg QHS PO Last administered on 08/28/17at 20:49; Start 08/24/17 at 21:00; Stop 08/29/17 at 18:50; Status DC Potassium Chloride (Klor-Con) 20 meq BIDWMEALS PO Last administered on 16:15; Start 08/28/17 at 19:00 Amitriptyline HCl (Elavil) 50 mg QHS PO Last administered on 09/02/17 19:30; Start 08/29/17 at 21:00 Sertraline HCl (Zoloft) 25 mg DAILY PO ; Start 09/01/17 at 09:00; Stop 09/01/17 at 09:00; Status DC Bupropion HCl (Wellbutrin Xl) 150 mg DAILY PO Last administered on 1/25/18at 08 :11; Start 09/01/17 at 09:00 Melatonin 6 mg QHS PO Last administered on 09/02/17at 19:29; Start 09/01/17 at 21:00 Active Scripts Active Reported Diazepam 2 Mg Tablet 2 Mg PO TID Xarelto (Rivaroxaban) 10 Mg Tablet 20 Mg PO DAILY Vitamin E (Vitamin E Mixed) 200 Unit Tablet 200 Unit PO DAILY Vitamin D (Cholecalciferol (Vitamin D3)) 2,000 Unit Capsule 2,000 Unit PO DAILY Seroquel (Quetiapine Fumarate) 25 Mg Tablet 25 Mg PO PRN QHS PRN Hydrocodone-Apap 7.5-325 (Hydrocodone Bit/Acetaminophen) 1 Each Tablet 1 Tab PO TID PRN EXELON 9.5mg/24hr (Rivastigmine) 1 Each Patch.td24 1 Patch TD DAILY Namenda (Memantine Hcl) 10 Mg Tablet 10 Mg PO DAILY Metoprolol Tartrate 25 Mg Tablet 25 Mg PO DAILY Losartan Potassium 25 Mg Tablet 25 Mg PO DAILY Xalatan (Latanoprost) 2.5 Ml Drops 1 Drp OU DAILY Ibuprofen 400 Mg Tablet 200 Mg PO BID Aspirin 81 Mg Tab.chew 81 Mg PO DAILY Albuterol Sulfate Neb Soln (Albuterol Sulfate) 2.5 Mg/3 Ml Vial.neb 2.5 Mg NEB PRN DAILY PRN I have reviewed the current psychotropics carefully including drug interactions. Risk benefit ratio favors no change other than as noted in my dictated progress note. Diagnosis: Problems: (1) Delusion (2) Confusion (3) Suicidal ideation (4) Anxiety disorder (5) Dementia in Alzheimer's disease with depression (6) Dementia in Alzheimer's disease with delusions (7) Dementia, vascular, with delusions (8) Dementia, vascular, with depression (9) Impulse control disorder KRYSTAL HAHN MD Sep 02, 2017 20:05
[2017-09-03 06:10] VITALS: BP 130/83
[2017-09-03] MEDS: ASPIRIN 81 MG TAB.CHEW PO SCH (08:36)
[2017-09-03] MEDS: buPROPion XL 150 MG TAB.ER.24H PO SCH (08:36)
[2017-09-03] MEDS: POTASSIUM CHLORIDE 20 MEQ TABLET.ER. PO SCH ×2 (08:36→17:17)
[2017-09-03] MEDS: METOPROLOL TART IMMED RELEASE 25 MG TABLET PO SCH (08:36)
[2017-09-03] MEDS: MEMANTINE 10 MG TABLET. PO SCH (08:36)
[2017-09-03] MEDS: QUEtiapine 25 MG TABLET. PO SCH ×3 (08:37→17:18)
[2017-09-03] MEDS: RIVAROXABAN 10 MG TABLET. PO SCH (08:37)
[2017-09-03] MEDS: LOSARTAN 25 MG TABLET. PO SCH (08:37)
[2017-09-03] MEDS: CHOLECALCIFEROL (VITAMIN D3) 1,000 UNIT TABLET PO SCH (08:37)
[2017-09-03] MEDS: RIVASTIGMINE 9.5MG PATCH. TD SCH (08:37)
[2017-09-03] MEDS: LATANOPROST 0.005% OPHTH SOLUTION 2.5ML BOTTLE. OU SCH (08:38)
[2017-09-03] MEDS: VITAMIN E 200 UNIT CAPSULE. PO SCH (08:38)
[2017-09-03 10:15] LABS: ALBUMIN 3.5 g/dL (3.4-5.0); ALBUMIN/GLOBULIN RATIO 0.9 (1.0-1.7); CREATININE 1.1 mg/dL (0.7-1.3); GFR 64.1; MAGNESIUM 2.3 mg/dL (1.8-2.4); POTASSIUM 4.5 mmol/L (3.5-5.1); TOTAL BILIRUBIN 0.4 mg/dL (0.2-1.0); TOTAL PROTEIN 7.6 g/dL (6.4-8.2)
[2017-09-03 10:18] LABS: BASO # 0.1 x10^3/uL (0.0-0.2); BASO % 1 % (0-3); EOS # 0.5 x10^3/uL (0.0-0.7); EOS % 6 % (0-3); HEMATOCRIT 42.9 % (39.0-53.0); HEMOGLOBIN 14.1 g/dL (13.0-17.5); LYMPH # 2.3 x10^3/uL (1.0-4.8); LYMPH % 25 % (24-48); MEAN CORPUSCULAR HEMOGLOBIN 30 pg (25-35); MEAN CORPUSCULAR HGB CONC 33 g/dL (31-37); MEAN CORPUSCULAR VOLUME 91 fL (79-100); MONO % 11 % (0-9); NEUT # 5.1 x10^3uL (1.8-7.7); NEUT % 57 % (31-73); PLATELET COUNT 472 x10^3/uL (140-400); RED BLOOD COUNT 4.72 x10^6/uL (4.30-5.70); RED CELL DISTRIBUTION WIDTH 16.3 % (11.5-14.5)
[2017-09-03 16:35] VITALS: BP 147/88
[2017-09-03] MEDS ORDERED: diazePAM 2 MG TABLET PO ONE ×2 (17:15→21:00)
[2017-09-03] MEDS: MELATONIN 3 MG TABLET PO SCH (19:51)
[2017-09-03] MEDS: AMITRIPTYLINE HCL 25 MG TABLET PO SCH (19:51)
[2017-09-03] MEDS: diazePAM 2 MG TABLET PO SCH (19:55)
[2017-09-04 06:03] VITALS: BP 132/81
[2017-09-04] MEDS: RIVASTIGMINE 9.5MG PATCH. TD SCH (08:15)
[2017-09-04] MEDS: VITAMIN E 200 UNIT CAPSULE. PO SCH (08:16)
[2017-09-04] MEDS: CHOLECALCIFEROL (VITAMIN D3) 1,000 UNIT TABLET PO SCH (08:16)
--- NOTE | 2017-09-04 08:16 | PN ---
DATE: 09/01/2017 PSYCHIATRIC PROGRESS NOTE This is a late entry 09/01/2017 covers elements not covered in my initial note 09/01/2017. SUBJECTIVE: I met with the patient evening of 09/01/2017. The patient slept just 3 hours previous evening, slept in the day room, confused, [place], wandering, compliant with medications. REVIEW OF SYSTEMS: No CV, , pulmonary, eye, ENT system symptoms on review. Reliability poor due to his dementia. MENTAL STATUS EXAM: Oriented to himself. Insight, judgment, recent and remote memory, attention, concentration, fund of knowledge poor, consistent with his diagnosis mentioned in my initial note. IMPRESSION: Major neurocognitive disorder, Alzheimer, vascular with depression, delusion, behavioral disturbance. Rest unchanged. PLAN: Continue current psychotropics. Increase melatonin to 6 mg at bedtime since he only slept 3 hours previous evening. He has an allergy to TRAZODONE. We are unable to use this. Continue rest unchanged. MAN Johnny HAHN MD DR: HALINA/namita JOB#: [id number] / [id number]
[2017-09-04] MEDS: MEMANTINE 10 MG TABLET. PO SCH (08:17)
[2017-09-04] MEDS: LOSARTAN 25 MG TABLET. PO SCH (08:17)
[2017-09-04] MEDS: RIVAROXABAN 10 MG TABLET. PO SCH (08:17)
[2017-09-04] MEDS: QUEtiapine 25 MG TABLET. PO SCH ×3 (08:18→16:30)
[2017-09-04] MEDS: ASPIRIN 81 MG TAB.CHEW PO SCH (08:18)
[2017-09-04] MEDS: POTASSIUM CHLORIDE 20 MEQ TABLET.ER. PO SCH ×2 (08:18→16:30)
[2017-09-04] MEDS: METOPROLOL TART IMMED RELEASE 25 MG TABLET PO SCH (08:18)
[2017-09-04] MEDS: buPROPion XL 150 MG TAB.ER.24H PO SCH (08:18)
[2017-09-04] MEDS: LATANOPROST 0.005% OPHTH SOLUTION 2.5ML BOTTLE. OU SCH (08:19)
[2017-09-04] MEDS: diazePAM 2 MG TABLET PO SCH ×3 (08:29→19:45)
--- NOTE | 2017-09-04 09:32 | PN ---
DATE: 09/02/2017 PSYCHIATRIC PROGRESS NOTE This is a late entry 09/02/2017 covers elements not covered in my initial note 09/02/2017. SUBJECTIVE: The patient seen individually evening of 09/02/2017, staffed at treatment team meeting with the entire team morning of 09/02/2017. Appetite 80%, sleeping about 5 hours average, wandering, confused, compliant, redirected, somewhat delusional, waiting for the elevator door, somewhat emotional at times. REVIEW OF SYSTEMS: No CV, , pulmonary, eye, ENT system symptoms on review. Reliability poor. MENTAL STATUS EXAM: Oriented to himself. Insight, judgment, recent and remote memory, attention, concentration, fund of knowledge poor, consistent with his diagnosis. IMPRESSION: Major neurocognitive disorder, Alzheimer, vascular with depression, delusion, behavioral disturbance. Rest unchanged. PLAN: Continue current psychotropics. Adjust further as clinically indicated. I was informed the had questions about history of notation in my admission history of no physical, sexual, elder abuse history is noted. Just to clarify this is a standard documentation as part of the Medicare requirements to complete an adequate history and this was negative in the patient's case and mentioned as a negative in that dictation. MAN Johnny HAHN MD DR: HALINA/namita JOB#: [id number] / [id number]
--- NOTE | 2017-09-04 09:56 | PDOC ---
Exam Note: Chris Note: Please also refer to the separate dictated note~for this date of service dictated separately.~Patient seen individually. Discussed the patient with Nursing staff reviewed the chart.~Reviewed interim history and current functioning. Reviewed vital signs,~Labs/ Radiology~and current medications noted below. Continue current treatment with the changes noted in the dictated addendum note. This is a late entry for date of service September 03, 2017 Assessment: Vital Signs: VS - Last 72 Hours, by Label Date Time Temp Pulse Resp B/P (MAP) Pulse Ox O2 Delivery O2 Flow Rate FiO2 09/04/17 08:18 71 132/81 09/04/17 08:17 71 132/81 09/04/17 06:03 97.5 71 18 132/81 (98) 95 09/03/17 16:35 98.1 88 18 147/88 (107) 96 Room Air 09/03/17 08:37 61 130/83 09/03/17 08:36 61 130/83 09/03/17 06:10 97.5 61 16 130/83 (99) 98 09/02/17 16:07 97.9 74 20 115/70 (85) 94 09/02/17 08:12 64 113/75 09/02/17 08:11 64 113/75 09/02/17 06:02 98.4 64 18 113/75 (88) 98 09/01/17 15:57 98.2 67 18 95/56 (69) 96 Vital Signs Date Time Temp Pulse Resp B/P (MAP) Pulse Ox O2 Delivery O2 Flow Rate FiO2 09/04/17 08:18 71 132/81 09/04/17 06:03 97.5 18 95 09/03/17 16:35 Room Air I&O Intake and Output 09/04/17 07:00 Intake Total 960 ml Balance 960 ml Intake Oral 960 ml Current Medications: Meds: Current Medications Acetaminophen (Tylenol) 650 mg PRN Q6HRS PRN PO PAIN / TEMP Last administered on 08/31/17at 23:06; Start 08/20/17 at 18:30 Al Hydroxide/Mg Hydroxide (Mylanta Plus Xs) 15 ml PRN AFTMEALHC PRN PO DYSPEPSIA; Start 08/20/17 at 18:30 Magnesium Hydroxide (Milk Of Magnesia) 2,400 mg PRN QHS PRN PO CONSTIPATION; Start 08/20/17 at 18:30 Albuterol Sulfate (Ventolin) 2.5 mg PRN DAILY PRN NEB SHORTNESS OF BREATH; Start 08/20/17 at 21:15 Aspirin (Children'S Aspirin) 81 mg DAILY PO Last administered on 09/04/17at 08: 18; Start 08/21/17 at 09:00 Acetaminophen/ Hydrocodone Bitart (Lortab 7.5/325) 1 tab PRN TID PRN PO PAIN Last administered on 09/01/17at 08:44; Start 08/20/17 at 21:15 Ibuprofen (Motrin) 200 mg BID PO Last administered on 08/22/17at 07:54; Start at 22:00; Stop 08/23/17 at 07:21; Status DC Latanoprost (Xalatan) 1 drop DAILY OU Last administered on 09/04/17at 08:19; Start 08/21/17 at 09:00 Losartan Potassium (Cozaar) 25 mg DAILY PO Last administered on 09/04/17at 08:17 ; Start 08/21/17 at 09:00 Metoprolol Tartrate (Lopressor) 25 mg DAILY PO Last administered on 09/04/17 08:18; Start 08/21/17 at 09:00 Rivaroxaban (Xarelto) 20 mg DAILY PO Last administered on 09/04/17at 08:17; Start 08/21/17 at 09:00 Rivastigmine (Exelon) 1 patch DAILY TD Last administered on 09/04/17at 08:15; Start 08/21/17 at 09:00 Vitamin D (Vitamin D3) 2,000 unit DAILY PO Last administered on 09/04/17at 08:16 ; Start 08/21/17 at 09:00 Vitamin E 200 unit DAILY PO Last administered on 09/04/17at 08:16; Start at 09:00 Memantine (Namenda) 10 mg DAILY PO Last administered on 09/04/17at 08:17; Start 08/21/17 at 09:00 Quetiapine Fumarate (SEROquel) 25 mg PRN QHS PRN PO INSOMNIA Last administered on 08/31/17at 23:06; Start 08/20/17 at 21:30 Diazepam (Valium) 1.5 mg TID PO Last administered on 08/21/17at 14:06; Start at 14:00; Stop 08/21/17 at 18:51; Status DC Diazepam (Valium) 1 mg TID PO ; Start 08/26/17 at 09:00; Stop 08/26/17 at 09:00 ; Status DC Diazepam (Valium) 0.5 mg TID PO ; Start 08/31/17 at 09:00; Stop 08/31/17 at 09: 00; Status DC Mirtazapine (Remeron) 7.5 mg QHS PO Last administered on 08/21/17at 20:43; Start 08/21/17 at 21:00; Stop 08/22/17 at 18:32; Status DC Diazepam (Valium) 2 mg BID@1400,2100 PO Last administered on 08/26/17at 19:56; Start 08/21/17 at 21:00; Stop 08/27/17 at 09:00; Status DC Diazepam (Valium) 1.5 mg DAILYWBKFT PO Last administered on 08/26/17at 07:49; Start 08/22/17 at 08:00; Stop 08/27/17 at 07:59; Status DC Diazepam (Valium) 1.5 mg BID92 PO Last administered on 08/31/17at 13:30; Start 08/27/17 at 09:00; Stop 09/01/17 at 08:59; Status DC Diazepam (Valium) 2 mg QHS PO Last administered on 08/31/17at 19:24; Start 08/27 at 21:00; Stop 09/01/17 at 21:00; Status DC Mirtazapine (Remeron) 15 mg QHS PO Last administered on 08/23/17at 20:30; Start 08/22/17 at 21:00; Stop 08/24/17 at 18:02; Status DC Quetiapine Fumarate (SEROquel) 12.5 mg TID@0900,1300,1700 PO Last administered on 09/04/17at 08:18; Start 08/23/17 at 09:00 Melatonin 3 mg QHS PO Last administered on 08/31/17at 19:22; Start 08/22/17 at 21:00; Stop 09/01/17 at 18:15; Status DC Olanzapine (ZyPREXA ZYDIS) 2.5 mg PRN Q2HR PRN PO ANXIETY / AGITATION Last administered on 08/29/17at 21:01; Start 08/22/17 at 18:30 Amitriptyline HCl (Elavil) 25 mg QHS PO Last administered on 08/28/17at 20:49; Start 08/24/17 at 21:00; Stop 08/29/17 at 18:50; Status DC Potassium Chloride (Klor-Con) 20 meq BIDWMEALS PO Last administered on at 08:18; Start 08/28/17 at 19:00 Amitriptyline HCl (Elavil) 50 mg QHS PO Last administered on 09/03/17at 19:51; Start 08/29/17 at 21:00 Sertraline HCl (Zoloft) 25 mg DAILY PO ; Start 09/01/17 at 09:00; Stop 09/01/17 at 09:00; Status DC Bupropion HCl (Wellbutrin Xl) 150 mg DAILY PO Last administered on 09/04/17at 08 :18; Start 09/01/17 at 09:00 Melatonin 6 mg QHS PO Last administered on 09/03/17at 19:51; Start 09/01/17 at 21:00 Diazepam (Valium) 1.5 mg 1X ONCE PO Last administered on 09/03/17at 17:18; Start 09/03/17 at 17:15; Stop 09/03/17 at 17:16; Status DC Diazepam (Valium) 1.5 mg 1X ONCE PO ; Start 09/03/17 at 21:00; Stop 09/03/17 at 21:00; Status DC Diazepam (Valium) 1.5 mg TID PO Last administered on 09/04/17at 08:29; Start at 21:00; Stop 09/08/17 at 20:59 Diazepam (Valium) 1 mg DAILY PO ; Start 09/09/17 at 09:00; Stop 09/13/17 at 09:01 Diazepam (Valium) 1.5 mg BID@1400,2100 PO ; Start 09/09/17 at 14:00; Stop at 21:01 Diazepam (Valium) 1 mg BID92 PO ; Start 09/14/17 at 09:00; Stop 09/18/17 at 14:01 Diazepam (Valium) 1.5 mg QHS PO ; Start 09/14/17 at 21:00; Stop 09/18/17 at 21:01 Diazepam (Valium) 1 mg TID PO ; Start 09/19/17 at 09:00; Stop 09/23/17 at 21:01 Diazepam (Valium) 0.5 mg DAILY PO ; Start 09/24/17 at 09:00; Stop 09/28/17 at 09 :01 Diazepam (Valium) 1 mg BID@1400,2100 PO ; Start 09/24/17 at 14:00; Stop at 21:01 Diazepam (Valium) 0.5 mg BID92 PO ; Start 09/29/17 at 09:00; Stop 10/03/17 at 14 :01 Diazepam (Valium) 1 mg QHS PO ; Start 09/29/17 at 21:00; Stop 10/03/17 at 21:01 Diazepam (Valium) 0.5 mg TID PO ; Start 10/04/17 at 09:00; Stop 10/08/17 at 21:01 Diazepam (Valium) 0.5 mg BID@1400,2100 PO ; Start 10/09/17 at 14:00; Stop at 21:01 Diazepam (Valium) 0.5 mg QHS PO ; Start 10/14/17 at 21:00; Stop 10/18/17 at 21:01 Active Scripts Active Reported Diazepam 2 Mg Tablet 2 Mg PO TID Xarelto (Rivaroxaban) 10 Mg Tablet 20 Mg PO DAILY Vitamin E (Vitamin E Mixed) 200 Unit Tablet 200 Unit PO DAILY Vitamin D (Cholecalciferol (Vitamin D3)) 2,000 Unit Capsule 2,000 Unit PO DAILY Seroquel (Quetiapine Fumarate) 25 Mg Tablet 25 Mg PO PRN QHS PRN Hydrocodone-Apap 7.5-325 (Hydrocodone Bit/Acetaminophen) 1 Each Tablet 1 Tab PO TID PRN EXELON 9.5mg/24hr (Rivastigmine) 1 Each Patch.td24 1 Patch TD DAILY Namenda (Memantine Hcl) 10 Mg Tablet 10 Mg PO DAILY Metoprolol Tartrate 25 Mg Tablet 25 Mg PO DAILY Losartan Potassium 25 Mg Tablet 25 Mg PO DAILY Xalatan (Latanoprost) 2.5 Ml Drops 1 Drp OU DAILY Ibuprofen 400 Mg Tablet 200 Mg PO BID Aspirin 81 Mg Tab.chew 81 Mg PO DAILY Albuterol Sulfate Neb Soln (Albuterol Sulfate) 2.5 Mg/3 Ml Vial.neb 2.5 Mg NEB PRN DAILY PRN I have reviewed the current psychotropics carefully including drug interactions. Risk benefit ratio favors no change other than as noted in my dictated progress note. Diagnosis: Problems: (1) Encounter for medical screening examination (2) Delusion (3) Confusion (4) Suicidal ideation (5) Anxiety disorder (6) Dementia in Alzheimer's disease with depression (7) Dementia in Alzheimer's disease with delusions (8) Dementia, vascular, with delusions (9) Dementia, vascular, with depression (10) Impulse control disorder KRYSTAL HAHN MD Sep 04, 2017 09:56
[2017-09-04] MEDS: HYDROcodone/APAP 7.5/325MG 1 TAB TABLET PO PRN (10:48)
[2017-09-04 16:18] VITALS: BP 96/65
[2017-09-04] MEDS: MELATONIN 3 MG TABLET PO SCH (19:45)
[2017-09-04] MEDS: AMITRIPTYLINE HCL 25 MG TABLET PO SCH (19:45)
--- NOTE | 2017-09-04 22:25 | PDOC ---
Exam Note: Chris Note: Please also refer to the separate dictated note~for this date of service dictated separately.~Patient seen individually. Discussed the patient with Nursing staff reviewed the chart.~Reviewed interim history and current functioning. Reviewed vital signs,~Labs/ Radiology~and current medications noted below. Continue current treatment with the changes noted in the dictated addendum note Assessment: Vital Signs: Vital Signs Date Time Temp Pulse Resp B/P (MAP) Pulse Ox O2 Delivery O2 Flow Rate FiO2 09/04/17 16:18 97.6 70 18 96/65 (75) 94 09/04/17 11:55 Room Air I&O Intake and Output 09/04/17 07:00 Intake Total 960 ml Balance 960 ml Intake Oral 960 ml Current Medications: Meds: Current Medications Acetaminophen (Tylenol) 650 mg PRN Q6HRS PRN PO PAIN / TEMP Last administered on 08/31/17at 23:06; Start 08/20/17 at 18:30 Al Hydroxide/Mg Hydroxide (Mylanta Plus Xs) 15 ml PRN AFTMEALHC PRN PO DYSPEPSIA; Start 08/20/17 at 18:30 Magnesium Hydroxide (Milk Of Magnesia) 2,400 mg PRN QHS PRN PO CONSTIPATION; Start 08/20/17 at 18:30 Albuterol Sulfate (Ventolin) 2.5 mg PRN DAILY PRN NEB SHORTNESS OF BREATH; Start 08/20/17 at 21:15 Aspirin (Children'S Aspirin) 81 mg DAILY PO Last administered on 09/04/17at 08: 18; Start 08/21/17 at 09:00 Acetaminophen/ Hydrocodone Bitart (Lortab 7.5/325) 1 tab PRN TID PRN PO PAIN Last administered on 09/04/17at 10:48; Start 08/20/17 at 21:15 Ibuprofen (Motrin) 200 mg BID PO Last administered on 08/22/17at 07:54; Start at 22:00; Stop 08/23/17 at 07:21; Status DC Latanoprost (Xalatan) 1 drop DAILY OU Last administered on 09/04/17at 08:19; Start 08/21/17 at 09:00 Losartan Potassium (Cozaar) 25 mg DAILY PO Last administered on 09/04/17at 08:17 ; Start 08/21/17 at 09:00 Metoprolol Tartrate (Lopressor) 25 mg DAILY PO Last administered on 09/04/17at 08:18; Start 08/21/17 at 09:00 Rivaroxaban (Xarelto) 20 mg DAILY PO Last administered on 09/04/17at 08:17; Start 08/21/17 at 09:00 Rivastigmine (Exelon) 1 patch DAILY TD Last administered on 09/04/17at 08:15; Start 08/21/17 at 09:00 Vitamin D (Vitamin D3) 2,000 unit DAILY PO Last administered on 09/04/17at 08:16 ; Start 08/21/17 at 09:00 Vitamin E 200 unit DAILY PO Last administered on 09/04/17at 08:16; Start at 09:00 Memantine (Namenda) 10 mg DAILY PO Last administered on 09/04/17at 08:17; Start 08/21/17 at 09:00 Quetiapine Fumarate (SEROquel) 25 mg PRN QHS PRN PO INSOMNIA Last administered on 08/31/17at 23:06; Start 08/20/17 at 21:30 Diazepam (Valium) 1.5 mg TID PO Last administered on 08/21/17at 14:06; Start at 14:00; Stop 08/21/17 at 18:51; Status DC Diazepam (Valium) 1 mg TID PO ; Start 08/26/17 at 09:00; Stop 08/26/17 at 09:00 ; Status DC Diazepam (Valium) 0.5 mg TID PO ; Start 08/31/17 at 09:00; Stop 08/31/17 at 09: 00; Status DC Mirtazapine (Remeron) 7.5 mg QHS PO Last administered on 08/21/17at 20:43; Start 08/21/17 at 21:00; Stop 08/22/17 at 18:32; Status DC Diazepam (Valium) 2 mg BID@1400,2100 PO Last administered on 08/26/17at 19:56; Start 08/21/17 at 21:00; Stop 08/27/17 at 09:00; Status DC Diazepam (Valium) 1.5 mg DAILYWBKFT PO Last administered on 08/26/17at 07:49; Start 08/22/17 at 08:00; Stop 08/27/17 at 07:59; Status DC Diazepam (Valium) 1.5 mg BID92 PO Last administered on 08/31/17at 13:30; Start 08/27/17 at 09:00; Stop 09/01/17 at 08:59; Status DC Diazepam (Valium) 2 mg QHS PO Last administered on 08/31/17at 19:24; Start 08/27 at 21:00; Stop 09/01/17 at 21:00; Status DC Mirtazapine (Remeron) 15 mg QHS PO Last administered on 08/23/17at 20:30; Start 08/22/17 at 21:00; Stop 08/24/17 at 18:02; Status DC Quetiapine Fumarate (SEROquel) 12.5 mg TID@0900,1300,1700 PO Last administered on 09/04/17at 16:30; Start 08/23/17 at 09:00 Melatonin 3 mg QHS PO Last administered on 08/31/17at 19:22; Start 08/22/17 at 21:00; Stop 09/01/17 at 18:15; Status DC Olanzapine (ZyPREXA ZYDIS) 2.5 mg PRN Q2HR PRN PO ANXIETY / AGITATION Last administered on 08/29/17at 21:01; Start 08/22/17 at 18:30 Amitriptyline HCl (Elavil) 25 mg QHS PO Last administered on 08/28/17at 20:49; Start 08/24/17 at 21:00; Stop 08/29/17 at 18:50; Status DC Potassium Chloride (Klor-Con) 20 meq BIDWMEALS PO Last administered on at 16:30; Start 08/28/17 at 19:00 Amitriptyline HCl (Elavil) 50 mg QHS PO Last administered on 09/04/17at 19:45; Start 08/29/17 at 21:00 Sertraline HCl (Zoloft) 25 mg DAILY PO ; Start 09/01/17 at 09:00; Stop 09/01/17 at 09:00; Status DC Bupropion HCl (Wellbutrin Xl) 150 mg DAILY PO Last administered on 09/04/17at 08 :18; Start 09/01/17 at 09:00 Melatonin 6 mg QHS PO Last administered on 09/04/17at 19:45; Start 09/01/17 at 21:00 Diazepam (Valium) 1.5 mg 1X ONCE PO Last administered on 09/03/17at 17:18; Start 09/03/17 at 17:15; Stop 09/03/17 at 17:16; Status DC Diazepam (Valium) 1.5 mg 1X ONCE PO ; Start 09/03/17 at 21:00; Stop 09/03/17 at 21:00; Status DC Diazepam (Valium) 1.5 mg TID PO Last administered on 09/04/17at 19:45; Start at 21:00; Stop 09/08/17 at 20:59 Diazepam (Valium) 1 mg DAILY PO ; Start 09/09/17 at 09:00; Stop 09/13/17 at 09:01 Diazepam (Valium) 1.5 mg BID@1400,2100 PO ; Start 09/09/17 at 14:00; Stop at 21:01 Diazepam (Valium) 1 mg BID92 PO ; Start 09/14/17 at 09:00; Stop 09/18/17 at 14:01 Diazepam (Valium) 1.5 mg QHS PO ; Start 09/14/17 at 21:00; Stop 09/18/17 at 21:01 Diazepam (Valium) 1 mg TID PO ; Start 09/19/17 at 09:00; Stop 09/23/17 at 21:01 Diazepam (Valium) 0.5 mg DAILY PO ; Start 09/24/17 at 09:00; Stop 09/28/17 at 09 :01 Diazepam (Valium) 1 mg BID@1400,2100 PO ; Start 09/24/17 at 14:00; Stop at 21:01 Diazepam (Valium) 0.5 mg BID92 PO ; Start 09/29/17 at 09:00; Stop 10/03/17 at 14 :01 Diazepam (Valium) 1 mg QHS PO ; Start 09/29/17 at 21:00; Stop 10/03/17 at 21:01 Diazepam (Valium) 0.5 mg TID PO ; Start 10/04/17 at 09:00; Stop 10/08/17 at 21:01 Diazepam (Valium) 0.5 mg BID@1400,2100 PO ; Start 10/09/17 at 14:00; Stop at 21:01 Diazepam (Valium) 0.5 mg QHS PO ; Start 10/14/17 at 21:00; Stop 10/18/17 at 21:01 Active Scripts Active Reported Diazepam 2 Mg Tablet 2 Mg PO TID Xarelto (Rivaroxaban) 10 Mg Tablet 20 Mg PO DAILY Vitamin E (Vitamin E Mixed) 200 Unit Tablet 200 Unit PO DAILY Vitamin D (Cholecalciferol (Vitamin D3)) 2,000 Unit Capsule 2,000 Unit PO DAILY Seroquel (Quetiapine Fumarate) 25 Mg Tablet 25 Mg PO PRN QHS PRN Hydrocodone-Apap 7.5-325 (Hydrocodone Bit/Acetaminophen) 1 Each Tablet 1 Tab PO TID PRN EXELON 9.5mg/24hr (Rivastigmine) 1 Each Patch.td24 1 Patch TD DAILY Namenda (Memantine Hcl) 10 Mg Tablet 10 Mg PO DAILY Metoprolol Tartrate 25 Mg Tablet 25 Mg PO DAILY Losartan Potassium 25 Mg Tablet 25 Mg PO DAILY Xalatan (Latanoprost) 2.5 Ml Drops 1 Drp OU DAILY Ibuprofen 400 Mg Tablet 200 Mg PO BID Aspirin 81 Mg Tab.chew 81 Mg PO DAILY Albuterol Sulfate Neb Soln (Albuterol Sulfate) 2.5 Mg/3 Ml Vial.neb 2.5 Mg NEB PRN DAILY PRN I have reviewed the current psychotropics carefully including drug interactions. Risk benefit ratio favors no change other than as noted in my dictated progress note. Diagnosis: Problems: (1) Encounter for medical screening examination (2) Delusion (3) Confusion (4) Suicidal ideation (5) Anxiety disorder (6) Dementia in Alzheimer's disease with depression (7) Dementia in Alzheimer's disease with delusions (8) Dementia, vascular, with delusions (9) Dementia, vascular, with depression (10) Impulse control disorder KRYSTAL HAHN MD Sep 04, 2017 22:25
[2017-09-05 06:30] VITALS: BP 125/73
[2017-09-05] MEDS: CHOLECALCIFEROL (VITAMIN D3) 1,000 UNIT TABLET PO SCH (08:07)
[2017-09-05] MEDS: RIVASTIGMINE 9.5MG PATCH. TD SCH (08:07)
[2017-09-05] MEDS: LATANOPROST 0.005% OPHTH SOLUTION 2.5ML BOTTLE. OU SCH (08:07)
[2017-09-05] MEDS: POTASSIUM CHLORIDE 20 MEQ TABLET.ER. PO SCH ×2 (08:07→17:21)
[2017-09-05] MEDS: MEMANTINE 10 MG TABLET. PO SCH (08:08)
[2017-09-05] MEDS: QUEtiapine 25 MG TABLET. PO SCH ×3 (08:09→17:20)
[2017-09-05] MEDS: RIVAROXABAN 10 MG TABLET. PO SCH (08:10)
[2017-09-05] MEDS: buPROPion XL 150 MG TAB.ER.24H PO SCH (08:10)
[2017-09-05] MEDS: METOPROLOL TART IMMED RELEASE 25 MG TABLET PO SCH (08:10)
[2017-09-05] MEDS: ASPIRIN 81 MG TAB.CHEW PO SCH (08:10)
[2017-09-05] MEDS: LOSARTAN 25 MG TABLET. PO SCH (08:11)
[2017-09-05] MEDS: diazePAM 2 MG TABLET PO SCH ×3 (08:30→19:36)
[2017-09-05] MEDS: VITAMIN E 200 UNIT CAPSULE. PO SCH (09:00)
[2017-09-05 16:21] VITALS: BP 123/79
[2017-09-05] MEDS: MELATONIN 3 MG TABLET PO SCH (19:33)
[2017-09-05] MEDS: HYDROcodone/APAP 7.5/325MG 1 TAB TABLET PO PRN (19:33)
[2017-09-05] MEDS: AMITRIPTYLINE HCL 25 MG TABLET PO SCH (19:33)
--- NOTE | 2017-09-05 20:17 | PDOC ---
Exam Note: Chris Note: Please also refer to the separate dictated note~for this date of service dictated separately.~Patient seen individually. Discussed the patient with Nursing staff reviewed the chart.~Reviewed interim history and current functioning. Reviewed vital signs,~Labs/ Radiology~and current medications noted below. Continue current treatment with the changes noted in the dictated addendum note Assessment: Vital Signs: Vital Signs Date Time Temp Pulse Resp B/P (MAP) Pulse Ox O2 Delivery O2 Flow Rate FiO2 09/05/17 19:33 18 Room Air 09/05/17 16:21 97.4 79 123/79 (94) 96 I&O Intake and Output 09/05/17 07:00 Intake Total 600 ml Balance 600 ml Intake Oral 600 ml Current Medications: Meds: Current Medications Acetaminophen (Tylenol) 650 mg PRN Q6HRS PRN PO PAIN / TEMP Last administered on 08/31/17at 23:06; Start 08/20/17 at 18:30 Al Hydroxide/Mg Hydroxide (Mylanta Plus Xs) 15 ml PRN AFTMEALHC PRN PO DYSPEPSIA; Start 08/20/17 at 18:30 Magnesium Hydroxide (Milk Of Magnesia) 2,400 mg PRN QHS PRN PO CONSTIPATION; Start 08/20/17 at 18:30 Albuterol Sulfate (Ventolin) 2.5 mg PRN DAILY PRN NEB SHORTNESS OF BREATH; Start 08/20/17 at 21:15 Aspirin (Children'S Aspirin) 81 mg DAILY PO Last administered on 09/05/17at 08: 10; Start 08/21/17 at 09:00 Acetaminophen/ Hydrocodone Bitart (Lortab 7.5/325) 1 tab PRN TID PRN PO PAIN Last administered on 09/05/17at 19:33; Start 08/20/17 at 21:15 Ibuprofen (Motrin) 200 mg BID PO Last administered on 08/22/17at 07:54; Start at 22:00; Stop 08/23/17 at 07:21; Status DC Latanoprost (Xalatan) 1 drop DAILY OU Last administered on 09/05/17at 08:07; Start 08/21/17 at 09:00 Losartan Potassium (Cozaar) 25 mg DAILY PO Last administered on 09/05/17at 08:11 ; Start 08/21/17 at 09:00 Metoprolol Tartrate (Lopressor) 25 mg DAILY PO Last administered on 09/05/17at 08:10; Start 08/21/17 at 09:00 Rivaroxaban (Xarelto) 20 mg DAILY PO Last administered on 09/05/17at 08:10; Start 08/21/17 at 09:00 Rivastigmine (Exelon) 1 patch DAILY TD Last administered on 09/05/17at 08:07; Start 08/21/17 at 09:00 Vitamin D (Vitamin D3) 2,000 unit DAILY PO Last administered on 09/05/17at 08:07 ; Start 08/21/17 at 09:00 Vitamin E 200 unit DAILY PO Last administered on 09/04/17at 08:16; Start at 09:00 Memantine (Namenda) 10 mg DAILY PO Last administered on 09/05/17at 08:08; Start 08/21/17 at 09:00 Quetiapine Fumarate (SEROquel) 25 mg PRN QHS PRN PO INSOMNIA Last administered on 08/31/17at 23:06; Start 08/20/17 at 21:30 Diazepam (Valium) 1.5 mg TID PO Last administered on 08/21/17at 14:06; Start at 14:00; Stop 08/21/17 at 18:51; Status DC Diazepam (Valium) 1 mg TID PO ; Start 08/26/17 at 09:00; Stop 08/26/17 at 09:00 ; Status DC Diazepam (Valium) 0.5 mg TID PO ; Start 08/31/17 at 09:00; Stop 08/31/17 at 09: 00; Status DC Mirtazapine (Remeron) 7.5 mg QHS PO Last administered on 08/21/17at 20:43; Start 08/21/17 at 21:00; Stop 08/22/17 at 18:32; Status DC Diazepam (Valium) 2 mg BID@1400,2100 PO Last administered on 08/26/17at 19:56; Start 08/21/17 at 21:00; Stop 08/27/17 at 09:00; Status DC Diazepam (Valium) 1.5 mg DAILYWBKFT PO Last administered on 08/26/17at 07:49; Start 08/22/17 at 08:00; Stop 08/27/17 at 07:59; Status DC Diazepam (Valium) 1.5 mg BID92 PO Last administered on 08/31/17at 13:30; Start 08/27/17 at 09:00; Stop 09/01/17 at 08:59; Status DC Diazepam (Valium) 2 mg QHS PO Last administered on 08/31/17at 19:24; Start 08/27 at 21:00; Stop 09/01/17 at 21:00; Status DC Mirtazapine (Remeron) 15 mg QHS PO Last administered on 08/23/17at 20:30; Start 08/22/17 at 21:00; Stop 08/24/17 at 18:02; Status DC Quetiapine Fumarate (SEROquel) 12.5 mg TID@0900,1300,1700 PO Last administered on 09/05/17at 17:20; Start 08/23/17 at 09:00 Melatonin 3 mg QHS PO Last administered on 08/31/17at 19:22; Start 08/22/17 at 21:00; Stop 09/01/17 at 18:15; Status DC Olanzapine (ZyPREXA ZYDIS) 2.5 mg PRN Q2HR PRN PO ANXIETY / AGITATION Last administered on 08/29/17at 21:01; Start 08/22/17 at 18:30 Amitriptyline HCl (Elavil) 25 mg QHS PO Last administered on 08/28/17at 20:49; Start 08/24/17 at 21:00; Stop 08/29/17 at 18:50; Status DC Potassium Chloride (Klor-Con) 20 meq BIDWMEALS PO Last administered on 17:21; Start 08/28/17 at 19:00 Amitriptyline HCl (Elavil) 50 mg QHS PO Last administered on 09/05/17at 19:33; Start 08/29/17 at 21:00 Sertraline HCl (Zoloft) 25 mg DAILY PO ; Start 09/01/17 at 09:00; Stop 09/01/17 at 09:00; Status DC Bupropion HCl (Wellbutrin Xl) 150 mg DAILY PO Last administered on 09/05/17at 08 :10; Start 09/01/17 at 09:00 Melatonin 6 mg QHS PO Last administered on 09/05/17at 19:33; Start 09/01/17 at 21:00 Diazepam (Valium) 1.5 mg 1X ONCE PO Last administered on 09/03/17at 17:18; Start 09/03/17 at 17:15; Stop 09/03/17 at 17:16; Status DC Diazepam (Valium) 1.5 mg 1X ONCE PO ; Start 09/03/17 at 21:00; Stop 09/03/17 at 21:00; Status DC Diazepam (Valium) 1.5 mg TID PO Last administered on 09/05/17at 19:36; Start at 21:00; Stop 09/08/17 at 20:59 Diazepam (Valium) 1 mg DAILY PO ; Start 09/09/17 at 09:00; Stop 09/13/17 at 09:01 Diazepam (Valium) 1.5 mg BID@1400,2100 PO ; Start 09/09/17 at 14:00; Stop at 21:01 Diazepam (Valium) 1 mg BID92 PO ; Start 09/14/17 at 09:00; Stop 09/18/17 at 14:01 Diazepam (Valium) 1.5 mg QHS PO ; Start 09/14/17 at 21:00; Stop 09/18/17 at 21:01 Diazepam (Valium) 1 mg TID PO ; Start 09/19/17 at 09:00; Stop 09/23/17 at 21:01 Diazepam (Valium) 0.5 mg DAILY PO ; Start 09/24/17 at 09:00; Stop 09/28/17 at 09 :01 Diazepam (Valium) 1 mg BID@1400,2100 PO ; Start 09/24/17 at 14:00; Stop at 21:01 Diazepam (Valium) 0.5 mg BID92 PO ; Start 09/29/17 at 09:00; Stop 10/03/17 at 14 :01 Diazepam (Valium) 1 mg QHS PO ; Start 09/29/17 at 21:00; Stop 10/03/17 at 21:01 Diazepam (Valium) 0.5 mg TID PO ; Start 2/26/18 at 09:00; Stop 10/08/17 at 21:01 Diazepam (Valium) 0.5 mg BID@1400,2100 PO ; Start 10/09/17 at 14:00; Stop at 21:01 Diazepam (Valium) 0.5 mg QHS PO ; Start 10/14/17 at 21:00; Stop 10/18/17 at 21:01 Hydrocortisone (Hytone) 1 shashank BID TP ; Start 09/05/17 at 21:00; Stop 09/12/17 at 20:59 Multi-Ingred Cream/Lotion/Oil/ Oint (Hydrocerin) 1 shashank DAILY10 TP ; Start at 21:30 Active Scripts Active Reported Diazepam 2 Mg Tablet 2 Mg PO TID Xarelto (Rivaroxaban) 10 Mg Tablet 20 Mg PO DAILY Vitamin E (Vitamin E Mixed) 200 Unit Tablet 200 Unit PO DAILY Vitamin D (Cholecalciferol (Vitamin D3)) 2,000 Unit Capsule 2,000 Unit PO DAILY Seroquel (Quetiapine Fumarate) 25 Mg Tablet 25 Mg PO PRN QHS PRN Hydrocodone-Apap 7.5-325 (Hydrocodone Bit/Acetaminophen) 1 Each Tablet 1 Tab PO TID PRN EXELON 9.5mg/24hr (Rivastigmine) 1 Each Patch.td24 1 Patch TD DAILY Namenda (Memantine Hcl) 10 Mg Tablet 10 Mg PO DAILY Metoprolol Tartrate 25 Mg Tablet 25 Mg PO DAILY Losartan Potassium 25 Mg Tablet 25 Mg PO DAILY Xalatan (Latanoprost) 2.5 Ml Drops 1 Drp OU DAILY Ibuprofen 400 Mg Tablet 200 Mg PO BID Aspirin 81 Mg Tab.chew 81 Mg PO DAILY Albuterol Sulfate Neb Soln (Albuterol Sulfate) 2.5 Mg/3 Ml Vial.neb 2.5 Mg NEB PRN DAILY PRN I have reviewed the current psychotropics carefully including drug interactions. Risk benefit ratio favors no change other than as noted in my dictated progress note. Diagnosis: Problems: (1) Delusion (2) Confusion (3) Suicidal ideation (4) Anxiety disorder (5) Dementia in Alzheimer's disease with depression (6) Dementia in Alzheimer's disease with delusions (7) Dementia, vascular, with delusions (8) Dementia, vascular, with depression (9) Impulse control disorder KRYSTAL HAHN MD Sep 05, 2017 20:17
--- NOTE | 2017-09-05 20:53 | PN ---
DATE: 09/03/2017 This is a late entry 09/03/2017 covers elements not covered in my initial note 09/03/2017. I met with the patient evening of 09/03/2017. DICTATION ENDS HERE. MAN Johnny HAHN MD DR: Nidia JOB#: [id number] / [id number]
[2017-09-05] MEDS: HYDROCORTISONE 2.5% TOPICAL OINTMENT 30GM TUBE. TP SCH (21:00)
[2017-09-05] MEDS: MINERAL OIL/PETROLATUM TOPICAL CREAM 113GM JAR. TP SCH (21:30)
--- NOTE | 2017-09-05 23:15 | PN ---
DATE: 09/04/2017 PSYCHIATRIC PROGRESS NOTE This is a late entry of 09/04/2017 covers elements not covered in my initial note of 09/04/2017. HISTORY OF PRESENT ILLNESS: I met with the patient evening of 09/04/2017. The patient remains confused, pleasant, delusional at times, believes he is here at work on the concrete outside, talking about Dr. Graham giving him codeine that was acquired from a drug bust that he saw in the paper, somewhat delusional. REVIEW OF SYSTEMS: No CV, , pulmonary, eye, ENT system symptoms on review. Reliability poor. MENTAL STATUS EXAM: Oriented to himself. Insight, judgment, recent and remote memory, attention, concentration, fund of knowledge poor, consistent with his diagnosis. IMPRESSION: Major neurocognitive disorder, Alzheimer, vascular with delusion, depression, behavioral disturbance. The patient slept just 1-1/4 hours previous evening despite the increased amitriptyline, we will have to monitor this and adjust further. Continue rest psychotropics unchanged mentioned in my initial note. MAN Johnny HAHN MD DR: HALINA/namita JOB#: [id number] / [id number]
[2017-09-06 06:08] VITALS: BP 107/66
[2017-09-06] MEDS: ASPIRIN 81 MG TAB.CHEW PO SCH (07:50)
[2017-09-06] MEDS: POTASSIUM CHLORIDE 20 MEQ TABLET.ER. PO SCH ×2 (07:50→18:05)
[2017-09-06] MEDS: MEMANTINE 10 MG TABLET. PO SCH (07:50)
[2017-09-06] MEDS: RIVAROXABAN 10 MG TABLET. PO SCH (07:50)
[2017-09-06] MEDS: CHOLECALCIFEROL (VITAMIN D3) 1,000 UNIT TABLET PO SCH (07:50)
[2017-09-06] MEDS: buPROPion XL 150 MG TAB.ER.24H PO SCH (07:51)
[2017-09-06] MEDS: QUEtiapine 25 MG TABLET. PO SCH ×3 (07:53→18:05)
[2017-09-06] MEDS: RIVASTIGMINE 9.5MG PATCH. TD SCH (07:55)
[2017-09-06] MEDS: LOSARTAN 25 MG TABLET. PO SCH (07:55)
[2017-09-06] MEDS: METOPROLOL TART IMMED RELEASE 25 MG TABLET PO SCH (07:55)
[2017-09-06] MEDS: LATANOPROST 0.005% OPHTH SOLUTION 2.5ML BOTTLE. OU SCH (07:57)
[2017-09-06] MEDS: VITAMIN E 200 UNIT CAPSULE. PO SCH (07:58)
[2017-09-06] MEDS: diazePAM 2 MG TABLET PO SCH ×3 (07:58→19:49)
[2017-09-06] MEDS: HYDROCORTISONE 2.5% TOPICAL OINTMENT 30GM TUBE. TP SCH ×2 (09:00→21:00)
[2017-09-06] MEDS: MINERAL OIL/PETROLATUM TOPICAL CREAM 113GM JAR. TP SCH (10:00)
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
[2017-09-06 16:05] VITALS: BP 149/65
[2017-09-06] MEDS: HYDROcodone/APAP 7.5/325MG 1 TAB TABLET PO PRN (19:49)
[2017-09-06] MEDS: AMITRIPTYLINE HCL 25 MG TABLET PO SCH (19:50)
[2017-09-06] MEDS: MELATONIN 3 MG TABLET PO SCH (19:50)
--- NOTE | 2017-09-06 20:12 | PDOC ---
Exam Note: Chris Note: Please also refer to the separate dictated note~for this date of service dictated separately.~Patient seen individually. Discussed the patient with Nursing staff reviewed the chart.~Reviewed interim history and current functioning. Reviewed vital signs,~Labs/ Radiology~and current medications noted below. Continue current treatment with the changes noted in the dictated addendum note Assessment: Vital Signs: Vital Signs Date Time Temp Pulse Resp B/P (MAP) Pulse Ox O2 Delivery O2 Flow Rate FiO2 09/06/17 19:49 94 Room Air 09/06/17 16:05 98.1 57 16 149/65 (93) I&O Intake and Output 09/06/17 07:00 Intake Total 720 ml Balance 720 ml Intake Oral 720 ml # Voids 1 Current Medications: Meds: Current Medications Acetaminophen (Tylenol) 650 mg PRN Q6HRS PRN PO PAIN / TEMP Last administered on 08/31/17at 23:06; Start 08/20/17 at 18:30 Al Hydroxide/Mg Hydroxide (Mylanta Plus Xs) 15 ml PRN AFTMEALHC PRN PO DYSPEPSIA; Start 08/20/17 at 18:30 Magnesium Hydroxide (Milk Of Magnesia) 2,400 mg PRN QHS PRN PO CONSTIPATION; Start 08/20/17 at 18:30 Albuterol Sulfate (Ventolin) 2.5 mg PRN DAILY PRN NEB SHORTNESS OF BREATH; Start 08/20/17 at 21:15 Aspirin (Children'S Aspirin) 81 mg DAILY PO Last administered on 09/06/17at 07: 50; Start 08/21/17 at 09:00 Acetaminophen/ Hydrocodone Bitart (Lortab 7.5/325) 1 tab PRN TID PRN PO PAIN Last administered on 09/06/17at 19:49; Start 08/20/17 at 21:15 Ibuprofen (Motrin) 200 mg BID PO Last administered on 08/22/17at 07:54; Start at 22:00; Stop 08/23/17 at 07:21; Status DC Latanoprost (Xalatan) 1 drop DAILY OU Last administered on 09/06/17at 07:57; Start 08/21/17 at 09:00 Losartan Potassium (Cozaar) 25 mg DAILY PO Last administered on 09/05/17at 08:11 ; Start 08/21/17 at 09:00 Metoprolol Tartrate (Lopressor) 25 mg DAILY PO Last administered on 09/05/17at 08:10; Start 08/21/17 at 09:00 Rivaroxaban (Xarelto) 20 mg DAILY PO Last administered on 09/06/17at 07:50; Start 08/21/17 at 09:00 Rivastigmine (Exelon) 1 patch DAILY TD Last administered on 09/06/17at 07:55; Start 08/21/17 at 09:00 Vitamin D (Vitamin D3) 2,000 unit DAILY PO Last administered on 09/06/17at 07:50 ; Start 08/21/17 at 09:00 Vitamin E 200 unit DAILY PO Last administered on 09/06/17at 07:58; Start at 09:00 Memantine (Namenda) 10 mg DAILY PO Last administered on 09/06/17at 07:50; Start 08/21/17 at 09:00 Quetiapine Fumarate (SEROquel) 25 mg PRN QHS PRN PO INSOMNIA Last administered on 08/31/17at 23:06; Start 08/20/17 at 21:30 Diazepam (Valium) 1.5 mg TID PO Last administered on 08/21/17at 14:06; Start at 14:00; Stop 08/21/17 at 18:51; Status DC Diazepam (Valium) 1 mg TID PO ; Start 08/26/17 at 09:00; Stop 08/26/17 at 09:00 ; Status DC Diazepam (Valium) 0.5 mg TID PO ; Start 08/31/17 at 09:00; Stop 08/31/17 at 09: 00; Status DC Mirtazapine (Remeron) 7.5 mg QHS PO Last administered on 08/21/17at 20:43; Start 08/21/17 at 21:00; Stop 08/22/17 at 18:32; Status DC Diazepam (Valium) 2 mg BID@1400,2100 PO Last administered on 08/26/17at 19:56; Start 08/21/17 at 21:00; Stop 08/27/17 at 09:00; Status DC Diazepam (Valium) 1.5 mg DAILYWBKFT PO Last administered on 08/26/17at 07:49; Start 08/22/17 at 08:00; Stop 08/27/17 at 07:59; Status DC Diazepam (Valium) 1.5 mg BID92 PO Last administered on 08/31/17at 13:30; Start 08/27/17 at 09:00; Stop 09/01/17 at 08:59; Status DC Diazepam (Valium) 2 mg QHS PO Last administered on 08/31/17at 19:24; Start 08/27 at 21:00; Stop 09/01/17 at 21:00; Status DC Mirtazapine (Remeron) 15 mg QHS PO Last administered on 08/23/17at 20:30; Start 08/22/17 at 21:00; Stop 08/24/17 at 18:02; Status DC Quetiapine Fumarate (SEROquel) 12.5 mg TID@0900,1300,1700 PO Last administered on 09/06/17at 18:05; Start 08/23/17 at 09:00 Melatonin 3 mg QHS PO Last administered on 08/31/17at 19:22; Start 08/22/17 at 21:00; Stop 09/01/17 at 18:15; Status DC Olanzapine (ZyPREXA ZYDIS) 2.5 mg PRN Q2HR PRN PO ANXIETY / AGITATION Last administered on 08/29/17at 21:01; Start 08/22/17 at 18:30 Amitriptyline HCl (Elavil) 25 mg QHS PO Last administered on 08/28/17at 20:49; Start 08/24/17 at 21:00; Stop 08/29/17 at 18:50; Status DC Potassium Chloride (Klor-Con) 20 meq BIDWMEALS PO Last administered on at 18:05; Start 08/28/17 at 19:00 Amitriptyline HCl (Elavil) 50 mg QHS PO Last administered on 09/06/17at 19:50; Start 08/29/17 at 21:00 Sertraline HCl (Zoloft) 25 mg DAILY PO ; Start 09/01/17 at 09:00; Stop 09/01/17 at 09:00; Status DC Bupropion HCl (Wellbutrin Xl) 150 mg DAILY PO Last administered on 09/06/17at 07 :51; Start 09/01/17 at 09:00 Melatonin 6 mg QHS PO Last administered on 09/06/17at 19:50; Start 09/01/17 at 21:00 Diazepam (Valium) 1.5 mg 1X ONCE PO Last administered on 09/03/17at 17:18; Start 09/03/17 at 17:15; Stop 09/03/17 at 17:16; Status DC Diazepam (Valium) 1.5 mg 1X ONCE PO ; Start 09/03/17 at 21:00; Stop 09/03/17 at 21:00; Status DC Diazepam (Valium) 1.5 mg TID PO Last administered on 09/06/17at 19:49; Start at 21:00; Stop 09/08/17 at 20:59 Diazepam (Valium) 1 mg DAILY PO ; Start 09/09/17 at 09:00; Stop 09/13/17 at 09:01 Diazepam (Valium) 1.5 mg BID@1400,2100 PO ; Start 09/09/17 at 14:00; Stop at 21:01 Diazepam (Valium) 1 mg BID92 PO ; Start 09/14/17 at 09:00; Stop 09/18/17 at 14:01 Diazepam (Valium) 1.5 mg QHS PO ; Start 09/14/17 at 21:00; Stop 09/18/17 at 21:01 Diazepam (Valium) 1 mg TID PO ; Start 09/19/17 at 09:00; Stop 09/23/17 at 21:01 Diazepam (Valium) 0.5 mg DAILY PO ; Start 09/24/17 at 09:00; Stop 09/28/17 at 09 :01 Diazepam (Valium) 1 mg BID@1400,2100 PO ; Start 09/24/17 at 14:00; Stop at 21:01 Diazepam (Valium) 0.5 mg BID92 PO ; Start 09/29/17 at 09:00; Stop 10/03/17 at 14 :01 Diazepam (Valium) 1 mg QHS PO ; Start 09/29/17 at 21:00; Stop 10/03/17 at 21:01 Diazepam (Valium) 0.5 mg TID PO ; Start 10/04/17 at 09:00; Stop 10/08/17 at 21:01 Diazepam (Valium) 0.5 mg BID@1400,2100 PO ; Start 10/09/17 at 14:00; Stop at 21:01 Diazepam (Valium) 0.5 mg QHS PO ; Start 10/14/17 at 21:00; Stop 10/18/17 at 21:01 Hydrocortisone (Hytone) 1 shashank BID TP ; Start 09/05/17 at 21:00; Stop 09/12/17 at 20:59 Multi-Ingred Cream/Lotion/Oil/ Oint (Hydrocerin) 1 shashank DAILY10 TP ; Start at 21:30 Active Scripts Active Reported Diazepam 2 Mg Tablet 2 Mg PO TID Xarelto (Rivaroxaban) 10 Mg Tablet 20 Mg PO DAILY Vitamin E (Vitamin E Mixed) 200 Unit Tablet 200 Unit PO DAILY Vitamin D (Cholecalciferol (Vitamin D3)) 2,000 Unit Capsule 2,000 Unit PO DAILY Seroquel (Quetiapine Fumarate) 25 Mg Tablet 25 Mg PO PRN QHS PRN Hydrocodone-Apap 7.5-325 (Hydrocodone Bit/Acetaminophen) 1 Each Tablet 1 Tab PO TID PRN EXELON 9.5mg/24hr (Rivastigmine) 1 Each Patch.td24 1 Patch TD DAILY Namenda (Memantine Hcl) 10 Mg Tablet 10 Mg PO DAILY Metoprolol Tartrate 25 Mg Tablet 25 Mg PO DAILY Losartan Potassium 25 Mg Tablet 25 Mg PO DAILY Xalatan (Latanoprost) 2.5 Ml Drops 1 Drp OU DAILY Ibuprofen 400 Mg Tablet 200 Mg PO BID Aspirin 81 Mg Tab.chew 81 Mg PO DAILY Albuterol Sulfate Neb Soln (Albuterol Sulfate) 2.5 Mg/3 Ml Vial.neb 2.5 Mg NEB PRN DAILY PRN I have reviewed the current psychotropics carefully including drug interactions. Risk benefit ratio favors no change other than as noted in my dictated progress note. Diagnosis: Problems: (1) Delusion (2) Confusion (3) Suicidal ideation (4) Anxiety disorder (5) Dementia in Alzheimer's disease with depression (6) Dementia in Alzheimer's disease with delusions (7) Dementia, vascular, with delusions (8) Dementia, vascular, with depression (9) Impulse control disorder KRYSTAL HAHN MD Sep 06, 2017 20:12
[2017-09-07 06:20] VITALS: BP 140/86
[2017-09-07] MEDS: MEMANTINE 10 MG TABLET. PO SCH (08:23)
[2017-09-07] MEDS: CHOLECALCIFEROL (VITAMIN D3) 1,000 UNIT TABLET PO SCH (08:23)
[2017-09-07] MEDS: ASPIRIN 81 MG TAB.CHEW PO SCH (08:24)
[2017-09-07] MEDS: METOPROLOL TART IMMED RELEASE 25 MG TABLET PO SCH (08:24)
[2017-09-07] MEDS: POTASSIUM CHLORIDE 20 MEQ TABLET.ER. PO SCH ×2 (08:24→16:38)
[2017-09-07] MEDS: QUEtiapine 25 MG TABLET. PO SCH ×3 (08:25→16:38)
[2017-09-07] MEDS: buPROPion XL 150 MG TAB.ER.24H PO SCH (08:25)
[2017-09-07] MEDS: RIVAROXABAN 10 MG TABLET. PO SCH (08:25)
[2017-09-07] MEDS: LOSARTAN 25 MG TABLET. PO SCH (08:25)
[2017-09-07] MEDS: diazePAM 2 MG TABLET PO SCH ×3 (08:29→19:48)
[2017-09-07] MEDS: LATANOPROST 0.005% OPHTH SOLUTION 2.5ML BOTTLE. OU SCH (08:30)
[2017-09-07] MEDS: VITAMIN E 200 UNIT CAPSULE. PO SCH (08:30)
[2017-09-07] MEDS: RIVASTIGMINE 9.5MG PATCH. TD SCH (08:33)
[2017-09-07] MEDS: MINERAL OIL/PETROLATUM TOPICAL CREAM 113GM JAR. TP SCH (09:07)
[2017-09-07] MEDS: HYDROCORTISONE 2.5% TOPICAL OINTMENT 30GM TUBE. TP SCH ×2 (09:07→19:48)
[2017-09-07 16:05] VITALS: BP 123/89
--- NOTE | 2017-09-07 18:34 | PN ---
DATE: 09/06/2017 SUBJECTIVE: The patient was seen today, met with the staff, chart reviewed. The patient is able to walk still confused, delusional at times, and also experiencing hallucinations and also delusional, thinks someone is breaking into his house. The patient apparently had lot of treatments in the past including ACT, total of 20 in the past. The patient was admitted here because of increased confusion, agitation, delusions and hallucinations. The patient has a past history of psychosis and depression. VITAL SIGNS: Temperature 98.7, blood pressure 107/66, pulse 61, respirations 18, O2 sat 97%. Slept about 6 hours last night. Appetite fair. MEDICATIONS: The patient is on diazepam 0.5 mg at night. The patient apparently on tapering dose. The patient is also on melatonin 6 mg at night, Wellbutrin 150 mg daily, amitriptyline 50 mg at night, Seroquel 12.5 mg t.i.d., olanzapine 10 mg at night, Exelon patch one daily, Seroquel 25 mg at bedtime p.r.n. The patient's labs reviewed. ASSESSMENT: Major neurocognitive disorder, vascular with depression and delusional and behavioral disturbances. Also, benzodiazepine dependence. PLAN: Continue on diazepam taper. JADA ALLEN MD DR: ALEN/namita JOB#: [id number] / [id number]
[2017-09-07] MEDS: AMITRIPTYLINE HCL 25 MG TABLET PO SCH (19:45)
[2017-09-07] MEDS: MELATONIN 3 MG TABLET PO SCH (19:45)
[2017-09-07] MEDS ORDERED: AMIT50TA PO (23:53)
[2017-09-07] MEDS ORDERED: ACET325T9 PO (23:54)
[2017-09-08] MEDS ORDERED: HYDR57CR TP (00:01)
[2017-09-08] MEDS ORDERED: MAG30ORA2 PO (00:07)
[2017-09-08] MEDS ORDERED: BUPR-192 PO (00:07)
[2017-09-08] MEDS ORDERED: MAGN2400 PO (00:08)
[2017-09-08] MEDS ORDERED: MELA3TAB2 PO (00:09)
[2017-09-08] MEDS ORDERED: MINE473L5 TP (00:10)
[2017-09-08] MEDS ORDERED: OLAN5TAB5 PO (00:12)
[2017-09-08] MEDS ORDERED: POTA20TA4 PO (00:13)
[2017-09-08] MEDS ORDERED: QUET25TA5 PO (00:14)
[2017-09-08] MEDS ORDERED: DIAZ2TAB PO ×13 (04:02→04:58)
[2017-09-08 11:17] VITALS: BP 131/78
[2017-09-08] MEDS: CHOLECALCIFEROL (VITAMIN D3) 1,000 UNIT TABLET PO SCH (11:18)
[2017-09-08] MEDS: RIVAROXABAN 10 MG TABLET. PO SCH (11:18)
[2017-09-08] MEDS: QUEtiapine 25 MG TABLET. PO SCH ×4 (11:18→19:33)
[2017-09-08] MEDS: RIVASTIGMINE 9.5MG PATCH. TD SCH (11:18)
[2017-09-08] MEDS: buPROPion XL 150 MG TAB.ER.24H PO SCH (11:19)
[2017-09-08] MEDS: METOPROLOL TART IMMED RELEASE 25 MG TABLET PO SCH (11:19)
[2017-09-08] MEDS: POTASSIUM CHLORIDE 20 MEQ TABLET.ER. PO SCH ×2 (11:19→17:00)
[2017-09-08] MEDS: LOSARTAN 25 MG TABLET. PO SCH (11:19)
[2017-09-08] MEDS: MINERAL OIL/PETROLATUM TOPICAL CREAM 113GM JAR. TP SCH (11:20)
[2017-09-08] MEDS: HYDROCORTISONE 2.5% TOPICAL OINTMENT 30GM TUBE. TP SCH ×2 (11:20→19:14)
[2017-09-08] MEDS: VITAMIN E 200 UNIT CAPSULE. PO SCH (11:20)
[2017-09-08] MEDS: MEMANTINE 10 MG TABLET. PO SCH (11:20)
[2017-09-08] MEDS: LATANOPROST 0.005% OPHTH SOLUTION 2.5ML BOTTLE. OU SCH (11:20)
[2017-09-08] MEDS: ASPIRIN 81 MG TAB.CHEW PO SCH (11:20)
[2017-09-08] MEDS: diazePAM 2 MG TABLET PO SCH ×2 (11:21→12:37)
[2017-09-08 16:11] VITALS: BP 106/67
--- NOTE | 2017-09-08 17:11 | PN ---
DATE: 09/07/2017 SUBJECTIVE: The patient was seen today, met with the staff, chart reviewed. The patient continues to have some delusional thinking, periods of confusion. The patient is able to walk. OBJECTIVE: VITAL SIGNS: Temperature 97.4, blood pressure 140/86, pulse 65, respirations 16, O2 sat 98%. Slept only about 1 hour last night. CURRENT MEDICATIONS: Include lorazepam 0.5 mg at night apparently is on a tapering dose, melatonin 6 mg at night, Wellbutrin 150 mg daily, amitriptyline 50 mg at night, Seroquel 12.5 mg daily, olanzapine 10 mg at night, Exelon patch one daily, Seroquel 25 mg at bedtime p.r.n. LABORATORY DATA: Reviewed. ASSESSMENT: Major neurocognitive disorder, vascular with depression and delusions and behavioral disturbances; benzodiazepine dependence. PLAN: To continue with the treatment. The patient is planned for discharge. JADA ALLEN MD DR: ALEN/namita JOB#: [id number] / [id number]
[2017-09-08] MEDS: AMITRIPTYLINE HCL 25 MG TABLET PO SCH (19:12)
[2017-09-08] MEDS: MELATONIN 3 MG TABLET PO SCH (19:12)
--- NOTE | 2017-09-09 08:37 | PN ---
DATE: 09/08/2017 SUBJECTIVE: The patient was seen today, met with the staff, chart reviewed. The patient continues to be delusional, paranoid, decreased sleep, increased anxiety, restlessness. The patient apparently has a long history of psychiatric problems, prior history of ECTs. OBSERVATION: Vital signs stable, sleeping better, appetite is fair. MEDICATIONS: The patient's current medications include diazepam 0.5 mg at night; apparently, he is on a tapering dose. He is also on melatonin 6 mg at night, Wellbutrin 150 mg daily, amitriptyline 50 mg at night, Seroquel 12.5 mg t.i.d., olanzapine 10 mg at night, and Exelon patch 1 daily, also on Seroquel 25 mg at bedtime. The patient's lab reviewed. ASSESSMENT: Major neurocognitive disorder, vascular with depression and delusions and behavioral disturbances, benzodiazepine dependence. PLAN: To continue with the treatment. JADA ALLEN MD DR: ALEN/namita JOB#: [id number] / [id number]
[2017-09-09] MEDS: RIVASTIGMINE 9.5MG PATCH. TD SCH (09:21)
[2017-09-09] MEDS: METOPROLOL TART IMMED RELEASE 25 MG TABLET PO SCH (09:22)
[2017-09-09] MEDS: POTASSIUM CHLORIDE 20 MEQ TABLET.ER. PO SCH ×2 (09:25→16:21)
[2017-09-09] MEDS: QUEtiapine 25 MG TABLET. PO SCH ×4 (09:26→20:01)
[2017-09-09] MEDS: ASPIRIN 81 MG TAB.CHEW PO SCH (09:26)
[2017-09-09] MEDS: MEMANTINE 10 MG TABLET. PO SCH (09:26)
[2017-09-09] MEDS: RIVAROXABAN 10 MG TABLET. PO SCH (09:26)
[2017-09-09] MEDS: diazePAM 2 MG TABLET PO SCH ×3 (09:31→20:07)
[2017-09-09] MEDS: LOSARTAN 25 MG TABLET. PO SCH (09:31)
[2017-09-09] MEDS: VITAMIN E 200 UNIT CAPSULE. PO SCH (09:34)
[2017-09-09] MEDS: LATANOPROST 0.005% OPHTH SOLUTION 2.5ML BOTTLE. OU SCH (09:34)
[2017-09-09] MEDS: buPROPion 100 MG TABLET PO SCH ×3 (09:34→20:03)
[2017-09-09] MEDS: CHOLECALCIFEROL (VITAMIN D3) 1,000 UNIT TABLET PO SCH (09:35)
[2017-09-09] MEDS: HYDROCORTISONE 2.5% TOPICAL OINTMENT 30GM TUBE. TP SCH ×2 (09:35→20:08)
[2017-09-09] MEDS: MINERAL OIL/PETROLATUM TOPICAL CREAM 113GM JAR. TP SCH (09:36)
[2017-09-09] MEDS: AMITRIPTYLINE HCL 25 MG TABLET PO SCH (20:01)
[2017-09-09] MEDS: MELATONIN 3 MG TABLET PO SCH (20:01)
[2017-09-10 06:20] VITALS: BP 116/67
[2017-09-10] MEDS: LATANOPROST 0.005% OPHTH SOLUTION 2.5ML BOTTLE. OU SCH (09:00)
[2017-09-10] MEDS: diazePAM 2 MG TABLET PO SCH ×3 (09:00→19:43)
[2017-09-10] MEDS: HYDROCORTISONE 2.5% TOPICAL OINTMENT 30GM TUBE. TP SCH ×2 (09:00→19:41)
[2017-09-10] MEDS: MINERAL OIL/PETROLATUM TOPICAL CREAM 113GM JAR. TP SCH (10:00)
[2017-09-10] MEDS: QUEtiapine 25 MG TABLET. PO SCH ×4 (13:00→19:41)
[2017-09-10] MEDS: buPROPion 100 MG TABLET PO SCH ×3 (14:00→19:40)
[2017-09-10] MEDS: VITAMIN E 200 UNIT CAPSULE. PO SCH (14:14)
[2017-09-10] MEDS: RIVASTIGMINE 9.5MG PATCH. TD SCH (14:14)
[2017-09-10 14:15] VITALS: BP 135/71
[2017-09-10] MEDS: POTASSIUM CHLORIDE 20 MEQ TABLET.ER. PO SCH ×2 (14:15→14:28)
[2017-09-10] MEDS: CHOLECALCIFEROL (VITAMIN D3) 1,000 UNIT TABLET PO SCH (14:15)
[2017-09-10] MEDS: LOSARTAN 25 MG TABLET. PO SCH (14:16)
[2017-09-10] MEDS: MEMANTINE 10 MG TABLET. PO SCH (14:16)
[2017-09-10] MEDS: ASPIRIN 81 MG TAB.CHEW PO SCH (14:16)
[2017-09-10] MEDS: METOPROLOL TART IMMED RELEASE 25 MG TABLET PO SCH (14:17)
[2017-09-10] MEDS: RIVAROXABAN 10 MG TABLET. PO SCH (14:17)
[2017-09-10 15:31] VITALS: BP 116/60
--- NOTE | 2017-09-10 17:34 | PN ---
DATE: 09/09/2017 SUBJECTIVE: The patient was seen today, met with the staff, chart reviewed. The patient continues to have some problems, exit seeking behaviors, being combative, irritable, confused and also elopement risk, discussed in the treatment review today and also participated in THE treatment review. Apparently, she is wanting the patient to be released to [place], this is the new placement for him. Staffs have some concern about the discharge over the weekend and family was told that if the group home will be informed about her concerns and the patient needs to stabilize his behavior change with the meds, but this group home is willing to take, he will be discharged on 09/10/2017. MEDICATIONS: The patient's current medications include diazepam 0.5 mg at night, melatonin 6 mg at night, Wellbutrin 150 mg daily, amitriptyline 50 mg at night, Seroquel 12.5 mg t.i.d., olanzapine 10 mg at night, Exelon patch 1 daily, also Seroquel 25 mg at bedtime. The patient refused vital signs. He slept about only 3 hours last night. ASSESSMENT: Major neurocognitive disorder, vascular with depression and delusions and behavioral disturbances, benzodiazepine dependence. PLAN: To continue with the treatment. JADA ALLEN MD DR: ALEN/namita JOB#: [id number] / [id number]
[2017-09-10] MEDS: MELATONIN 3 MG TABLET PO SCH (19:40)
[2017-09-10] MEDS: AMITRIPTYLINE HCL 25 MG TABLET PO SCH (19:41)
[2017-09-11 06:23] VITALS: BP 114/65
[2017-09-11] MEDS: diazePAM 2 MG TABLET PO SCH ×3 (09:00→20:56)
[2017-09-11] MEDS: buPROPion 100 MG TABLET PO SCH ×3 (09:00→20:52)
[2017-09-11] MEDS: HYDROCORTISONE 2.5% TOPICAL OINTMENT 30GM TUBE. TP SCH ×2 (09:00→20:55)
[2017-09-11] MEDS: LATANOPROST 0.005% OPHTH SOLUTION 2.5ML BOTTLE. OU SCH (09:00)
[2017-09-11] MEDS: RIVAROXABAN 10 MG TABLET. PO SCH (09:06)
[2017-09-11] MEDS: LOSARTAN 25 MG TABLET. PO SCH (09:06)
[2017-09-11] MEDS: VITAMIN E 200 UNIT CAPSULE. PO SCH (09:06)
[2017-09-11] MEDS: ASPIRIN 81 MG TAB.CHEW PO SCH (09:07)
[2017-09-11] MEDS: CHOLECALCIFEROL (VITAMIN D3) 1,000 UNIT TABLET PO SCH (09:08)
[2017-09-11] MEDS: POTASSIUM CHLORIDE 20 MEQ TABLET.ER. PO SCH ×2 (09:08→17:10)
[2017-09-11] MEDS: MEMANTINE 10 MG TABLET. PO SCH (09:09)
[2017-09-11] MEDS: QUEtiapine 25 MG TABLET. PO SCH ×5 (09:09→20:53)
[2017-09-11] MEDS: METOPROLOL TART IMMED RELEASE 25 MG TABLET PO SCH (09:10)
[2017-09-11] MEDS: RIVASTIGMINE 9.5MG PATCH. TD SCH (09:17)
[2017-09-11 09:28] LABS: BASO # 0.1 x10^3/uL (0.0-0.2); BASO % 1 % (0-3); EOS # 0.7 x10^3/uL (0.0-0.7); EOS % 7 % (0-3); HEMATOCRIT 44.8 % (39.0-53.0); HEMOGLOBIN 14.6 g/dL (13.0-17.5); LYMPH # 2.3 x10^3/uL (1.0-4.8); LYMPH % 22 % (24-48); MEAN CORPUSCULAR HEMOGLOBIN 30 pg (25-35); MEAN CORPUSCULAR HGB CONC 33 g/dL (31-37); MEAN CORPUSCULAR VOLUME 91 fL (79-100); MONO % 10 % (0-9); NEUT # 6.2 x10^3uL (1.8-7.7); NEUT % 60 % (31-73); PLATELET COUNT 528 x10^3/uL (140-400); RED BLOOD COUNT 4.92 x10^6/uL (4.30-5.70); RED CELL DISTRIBUTION WIDTH 16.2 % (11.5-14.5); WHITE BLOOD COUNT 10.4 x10^3/uL (4.0-11.0)
[2017-09-11 09:40] LABS: ALBUMIN 3.7 g/dL (3.4-5.0); ALBUMIN/GLOBULIN RATIO 0.9 (1.0-1.7); CALCIUM 8.9 mg/dL (8.5-10.1); GFR 71.5; POTASSIUM 4.1 mmol/L (3.5-5.1); TOTAL BILIRUBIN 0.6 mg/dL (0.2-1.0); TOTAL PROTEIN 7.9 g/dL (6.4-8.2)
[2017-09-11] MEDS: MINERAL OIL/PETROLATUM TOPICAL CREAM 113GM JAR. TP SCH (10:04)
[2017-09-11 15:51] VITALS: BP 92/55
--- NOTE | 2017-09-11 15:54 | PN ---
DATE: 09/10/2017 SUBJECTIVE: The patient was seen today, met with the staff, chart reviewed. The patient continues to have problems, delusional, paranoid, increased agitation. OBSERVATION: VITAL SIGNS: Temperature 97.5, blood pressure 116/67, pulse 98, respiration 18, O2 sat 97%. Slept less than 2 hours last night. CURRENT MEDICATIONS: The patient's current medications include diazepam 5 mg at night, apparently is on a tapering dose. He is also on melatonin 6 mg at night, Wellbutrin 150 mg daily, amitriptyline 50 mg at night, Seroquel 12.5 mg t.i.d., olanzapine 10 mg at night, and Exelon patch 1 daily. The patient is also on Seroquel 25 mg at night. The patient's lab reviewed. IMPRESSION: Major neurocognitive disorder, vascular with depression, delusion and behavioral disturbances, benzodiazepine dependence. PLAN: To continue with the treatment. JADA ALLEN MD DR: ALEN/namita JOB#: [id number] / [id number]
[2017-09-11 19:15] VITALS: BP 126/66
[2017-09-11] MEDS: AMITRIPTYLINE HCL 25 MG TABLET PO SCH (20:53)
[2017-09-11] MEDS: MELATONIN 3 MG TABLET PO SCH (20:54)
[2017-09-12 06:23] VITALS: BP 144/78
[2017-09-12] MEDS: buPROPion 100 MG TABLET PO SCH ×3 (07:54→20:23)
[2017-09-12] MEDS: RIVASTIGMINE 9.5MG PATCH. TD SCH (07:54)
[2017-09-12] MEDS: CHOLECALCIFEROL (VITAMIN D3) 1,000 UNIT TABLET PO SCH (07:55)
[2017-09-12] MEDS: RIVAROXABAN 10 MG TABLET. PO SCH (07:55)
[2017-09-12] MEDS: ASPIRIN 81 MG TAB.CHEW PO SCH (07:55)
[2017-09-12] MEDS: VITAMIN E 200 UNIT CAPSULE. PO SCH (07:55)
[2017-09-12] MEDS: POTASSIUM CHLORIDE 20 MEQ TABLET.ER. PO SCH ×2 (07:55→17:00)
[2017-09-12] MEDS: MEMANTINE 10 MG TABLET. PO SCH (07:56)
[2017-09-12] MEDS: LOSARTAN 25 MG TABLET. PO SCH (07:56)
[2017-09-12] MEDS: QUEtiapine 25 MG TABLET. PO SCH ×4 (07:56→20:25)
[2017-09-12] MEDS: METOPROLOL TART IMMED RELEASE 25 MG TABLET PO SCH (07:57)
[2017-09-12] MEDS: LATANOPROST 0.005% OPHTH SOLUTION 2.5ML BOTTLE. OU SCH (07:58)
[2017-09-12] MEDS: diazePAM 2 MG TABLET PO SCH ×3 (07:58→20:28)
[2017-09-12] MEDS: MINERAL OIL/PETROLATUM TOPICAL CREAM 113GM JAR. TP SCH (07:58)
[2017-09-12] MEDS: HYDROCORTISONE 2.5% TOPICAL OINTMENT 30GM TUBE. TP SCH (07:59)
[2017-09-12 16:28] VITALS: BP 115/72
--- NOTE | 2017-09-12 20:17 | PDOC ---
Exam Note: Chris Note: Please also refer to the separate dictated note~for this date of service dictated separately.~Patient seen individually. Discussed the patient with Nursing staff reviewed the chart.~Reviewed interim history and current functioning. Reviewed vital signs,~Labs/ Radiology~and current medications noted below. Continue current treatment with the changes noted in the dictated addendum note Assessment: Vital Signs: Vital Signs Date Time Temp Pulse Resp B/P (MAP) Pulse Ox O2 Delivery O2 Flow Rate FiO2 09/12/17 16:28 97.7 86 18 115/72 (86) 93 09/12/17 06:23 Room Air I&O Intake and Output 09/12/17 07:00 Intake Total 600 ml Balance 600 ml Intake Oral 600 ml Current Medications: Meds: Current Medications Acetaminophen (Tylenol) 650 mg PRN Q6HRS PRN PO PAIN / TEMP Last administered on 08/31/17at 23:06; Start 08/20/17 at 18:30 Al Hydroxide/Mg Hydroxide (Mylanta Plus Xs) 15 ml PRN AFTMEALHC PRN PO DYSPEPSIA; Start 08/20/17 at 18:30 Magnesium Hydroxide (Milk Of Magnesia) 2,400 mg PRN QHS PRN PO CONSTIPATION; Start 08/20/17 at 18:30 Albuterol Sulfate (Ventolin) 2.5 mg PRN DAILY PRN NEB SHORTNESS OF BREATH; Start 08/20/17 at 21:15 Aspirin (Children'S Aspirin) 81 mg DAILY PO Last administered on 09/12/17at 07:55 ; Start 08/21/17 at 09:00 Acetaminophen/ Hydrocodone Bitart (Lortab 7.5/325) 1 tab PRN TID PRN PO PAIN Last administered on 09/06/17at 19:49; Start 08/20/17 at 21:15 Ibuprofen (Motrin) 200 mg BID PO Last administered on 08/22/17at 07:54; Start at 22:00; Stop 08/23/17 at 07:21; Status DC Latanoprost (Xalatan) 1 drop DAILY OU Last administered on 09/12/17at 07:58; Start 08/21/17 at 09:00 Losartan Potassium (Cozaar) 25 mg DAILY PO Last administered on 09/12/17at 07:56 ; Start 08/21/17 at 09:00 Metoprolol Tartrate (Lopressor) 25 mg DAILY PO Last administered on 09/12/17 07 :57; Start 08/21/17 at 09:00 Rivaroxaban (Xarelto) 20 mg DAILY PO Last administered on 09/12/17at 07:55; Start 08/21/17 at 09:00 Rivastigmine (Exelon) 1 patch DAILY TD Last administered on 09/12/17 07:54; Start 08/21/17 at 09:00 Vitamin D (Vitamin D3) 2,000 unit DAILY PO Last administered on 09/12/17 07:55 ; Start 08/21/17 at 09:00 Vitamin E 200 unit DAILY PO Last administered on 09/12/17 07:55; Start at 09:00 Memantine (Namenda) 10 mg DAILY PO Last administered on 09/12/17at 07:56; Start 08/21/17 at 09:00 Quetiapine Fumarate (SEROquel) 25 mg PRN QHS PRN PO INSOMNIA Last administered on 08/31/17at 23:06; Start 08/20/17 at 21:30; Stop 09/08/17 at 14:59; Status DC Diazepam (Valium) 1.5 mg TID PO Last administered on 08/21/17at 14:06; Start at 14:00; Stop 08/21/17 at 18:51; Status DC Diazepam (Valium) 1 mg TID PO ; Start 08/26/17 at 09:00; Stop 08/26/17 at 09:00 ; Status DC Diazepam (Valium) 0.5 mg TID PO ; Start 08/31/17 at 09:00; Stop 08/31/17 at 09: 00; Status DC Mirtazapine (Remeron) 7.5 mg QHS PO Last administered on 08/21/17at 20:43; Start 08/21/17 at 21:00; Stop 08/22/17 at 18:32; Status DC Diazepam (Valium) 2 mg BID@1400,2100 PO Last administered on 08/26/17at 19:56; Start 08/21/17 at 21:00; Stop 08/27/17 at 09:00; Status DC Diazepam (Valium) 1.5 mg DAILYWBKFT PO Last administered on 08/26/17at 07:49; Start 08/22/17 at 08:00; Stop 08/27/17 at 07:59; Status DC Diazepam (Valium) 1.5 mg BID92 PO Last administered on 08/31/17at 13:30; Start 08/27/17 at 09:00; Stop 09/01/17 at 08:59; Status DC Diazepam (Valium) 2 mg QHS PO Last administered on 08/31/17at 19:24; Start 08/27 at 21:00; Stop 09/01/17 at 21:00; Status DC Mirtazapine (Remeron) 15 mg QHS PO Last administered on 08/23/17 20:30; Start 08/22/17 at 21:00; Stop 08/24/17 at 18:02; Status DC Quetiapine Fumarate (SEROquel) 12.5 mg TID@0900,1300,1700 PO Last administered on 09/12/17 17:01; Start 08/23/17 at 09:00 Melatonin 3 mg QHS PO Last administered on 08/31/17 19:22; Start 08/22/17 at 21:00; Stop 09/01/17 at 18:15; Status DC Olanzapine (ZyPREXA ZYDIS) 2.5 mg PRN Q2HR PRN PO ANXIETY / AGITATION Last administered on 09/09/17 16:20; Start 08/22/17 at 18:30 Amitriptyline HCl (Elavil) 25 mg QHS PO Last administered on 08/28/17at 20:49; Start 08/24/17 at 21:00; Stop 08/29/17 at 18:50; Status DC Potassium Chloride (Klor-Con) 20 meq BIDWMEALS PO Last administered on 17:00; Start 08/28/17 at 19:00 Amitriptyline HCl (Elavil) 50 mg QHS PO Last administered on 09/11/17 20:53; Start 08/29/17 at 21:00 Sertraline HCl (Zoloft) 25 mg DAILY PO ; Start 09/01/17 at 09:00; Stop 09/01/17 at 09:00; Status DC Bupropion HCl (Wellbutrin Xl) 150 mg DAILY PO Last administered on 09/08/17at 11 :19; Start 09/01/17 at 09:00; Stop 09/08/17 at 14:59; Status DC Melatonin 6 mg QHS PO Last administered on 09/11/17at 20:54; Start 09/01/17 at 21 :00 Diazepam (Valium) 1.5 mg 1X ONCE PO Last administered on 09/03/17at 17:18; Start 09/03/17 at 17:15; Stop 09/03/17 at 17:16; Status DC Diazepam (Valium) 1.5 mg 1X ONCE PO ; Start 09/03/17 at 21:00; Stop 09/03/17 at 21:00; Status DC Diazepam (Valium) 1.5 mg TID PO Last administered on 09/08/17at 11:21; Start at 21:00; Stop 09/08/17 at 20:59; Status DC Diazepam (Valium) 1 mg DAILY PO Last administered on 09/12/17at 07:58; Start 09/09 at 09:00; Stop 09/13/17 at 09:01 Diazepam (Valium) 1.5 mg BID@1400,2100 PO Last administered on 09/12/17at 13:52; Start 09/09/17 at 14:00; Stop 09/13/17 at 21:01 Diazepam (Valium) 1 mg BID92 PO ; Start 09/14/17 at 09:00; Stop 09/18/17 at 14:01 Diazepam (Valium) 1.5 mg QHS PO ; Start 09/14/17 at 21:00; Stop 09/18/17 at 21:01 Diazepam (Valium) 1 mg TID PO ; Start 09/19/17 at 09:00; Stop 09/23/17 at 21:01 Diazepam (Valium) 0.5 mg DAILY PO ; Start 09/24/17 at 09:00; Stop 09/28/17 at 09 :01 Diazepam (Valium) 1 mg BID@1400,2100 PO ; Start 09/24/17 at 14:00; Stop at 21:01 Diazepam (Valium) 0.5 mg BID92 PO ; Start 09/29/17 at 09:00; Stop 10/03/17 at 14 :01 Diazepam (Valium) 1 mg QHS PO ; Start 09/29/17 at 21:00; Stop 10/03/17 at 21:01 Diazepam (Valium) 0.5 mg TID PO ; Start 10/04/17 at 09:00; Stop 10/08/17 at 21:01 Diazepam (Valium) 0.5 mg BID@1400,2100 PO ; Start 10/09/17 at 14:00; Stop at 21:01 Diazepam (Valium) 0.5 mg QHS PO ; Start 10/14/17 at 21:00; Stop 10/18/17 at 21:01 Hydrocortisone (Hytone) 1 mayelin BID TP Last administered on 09/12/17at 07:59; Start 09/05/17 at 21:00; Stop 09/12/17 at 20:59 Multi-Ingred Cream/Lotion/Oil/ Oint (Hydrocerin) 1 mayelin DAILY10 TP Last administered on 09/12/17at 07:58; Start 09/05/17 at 21:30 Bupropion HCl (Wellbutrin) 25 mg [id number] PO Last administered on 09/12/17at 13:52 ; Start 09/09/17 at 09:00 Quetiapine Fumarate (SEROquel) 37.5 mg QHS PO Last administered on 09/11/17at 20: 53; Start 09/08/17 at 21:00 Active Scripts Active Reported Valium (Diazepam) 2 Mg Tablet 0.5 Mg PO QHS Valium (Diazepam) 2 Mg Tablet 0.5 Mg PO [id number] Valium (Diazepam) 2 Mg Tablet 0.5 Mg PO TID Valium (Diazepam) 2 Mg Tablet 1 Mg PO QHS Valium (Diazepam) 2 Mg Tablet 0.5 Mg PO BID92 Valium (Diazepam) 2 Mg Tablet 1 Mg PO BID92 Valium (Diazepam) 2 Mg Tablet 0.5 Mg PO DAILY Valium (Diazepam) 2 Mg Tablet 1.5 Mg PO QHS Valium (Diazepam) 2 Mg Tablet 1 Mg PO BID92 Valium (Diazepam) 2 Mg Tablet 1 Mg PO TID Valium (Diazepam) 2 Mg Tablet 1.5 Mg PO BID14,21 Valium (Diazepam) 2 Mg Tablet 1 Mg PO DAILY Valium (Diazepam) 2 Mg Tablet 1.5 Mg PO TID Seroquel (Quetiapine Fumarate) 25 Mg Tablet 12.5 Mg PO TIDAFTMEAL Klor-Con M20 (Potassium Chloride) 20 Meq Tab.er.prt 20 Meq PO BIDWMEALS Zyprexa Zydis (Olanzapine) 5 Mg Tab.rapdis 2.5 Mg PO PRN Q2HR PRN Hydrocerin Lotion (Mineral Oil/I-Prop Myr/Water) 472 Ml Lotion 1 Mayelin TP DAILY10 Melatonin 3 Mg Tablet 3 Mg PO QHS Milk Of Magnesia (Magnesium Hydroxide) 2,400 Mg/10 Ml Oral.susp 2,400 Mg PO PRN QHS PRN Mag-Al Plus Xs Suspension (Mag Hydrox/Al Hydrox/Simeth) 30 Ml Oral.susp 15 Ml PO PRN AFTMEALHC PRN Bupropion Xl (Bupropion Hcl) 150 Mg Tab.er.24h 150 Mg PO DAILY Hydrocortisone-Pramoxine Cream (Hydrocortisone/Pramoxine) 57 Gm Cream..g. 1 Mayelin TP BID Tylenol (Acetaminophen) 325 Mg Tablet 650 Mg PO PRN Q6HRS PRN Amitriptyline Hcl 50 Mg Tablet 50 Mg PO QHS Diazepam 2 Mg Tablet 2 Mg PO TID Xarelto (Rivaroxaban) 10 Mg Tablet 20 Mg PO DAILY Vitamin E (Vitamin E Mixed) 200 Unit Tablet 200 Unit PO DAILY Vitamin D (Cholecalciferol (Vitamin D3)) 2,000 Unit Capsule 2,000 Unit PO DAILY Seroquel (Quetiapine Fumarate) 25 Mg Tablet 25 Mg PO PRN QHS PRN Hydrocodone-Apap 7.5-325 (Hydrocodone Bit/Acetaminophen) 1 Each Tablet 1 Tab PO TID PRN EXELON 9.5mg/24hr (Rivastigmine) 1 Each Patch.td24 1 Patch TD DAILY Namenda (Memantine Hcl) 10 Mg Tablet 10 Mg PO DAILY Metoprolol Tartrate 25 Mg Tablet 25 Mg PO DAILY Losartan Potassium 25 Mg Tablet 25 Mg PO DAILY Xalatan (Latanoprost) 2.5 Ml Drops 1 Drp OU DAILY Ibuprofen 400 Mg Tablet 200 Mg PO BID Aspirin 81 Mg Tab.chew 81 Mg PO DAILY Albuterol Sulfate Neb Soln (Albuterol Sulfate) 2.5 Mg/3 Ml Vial.neb 2.5 Mg NEB PRN DAILY PRN I have reviewed the current psychotropics carefully including drug interactions. Risk benefit ratio favors no change other than as noted in my dictated progress note. 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
[2017-09-12] MEDS: MELATONIN 3 MG TABLET PO SCH (20:24)
[2017-09-12] MEDS: AMITRIPTYLINE HCL 25 MG TABLET PO SCH (20:24)
[2017-09-13 06:16] VITALS: BP 123/61
[2017-09-13] MEDS: POTASSIUM CHLORIDE 20 MEQ TABLET.ER. PO SCH ×2 (12:33→17:08)
[2017-09-13] MEDS: MEMANTINE 10 MG TABLET. PO SCH (12:33)
[2017-09-13] MEDS: LOSARTAN 25 MG TABLET. PO SCH (12:33)
[2017-09-13] MEDS: RIVAROXABAN 10 MG TABLET. PO SCH (12:33)
[2017-09-13] MEDS: ASPIRIN 81 MG TAB.CHEW PO SCH (12:34)
[2017-09-13] MEDS: CHOLECALCIFEROL (VITAMIN D3) 1,000 UNIT TABLET PO SCH (12:34)
[2017-09-13] MEDS: buPROPion 100 MG TABLET PO SCH ×3 (12:34→21:13)
[2017-09-13] MEDS: METOPROLOL TART IMMED RELEASE 25 MG TABLET PO SCH (12:34)
[2017-09-13] MEDS: QUEtiapine 25 MG TABLET. PO SCH ×4 (12:35→21:10)
[2017-09-13] MEDS: RIVASTIGMINE 9.5MG PATCH. TD SCH (12:35)
[2017-09-13] MEDS: LATANOPROST 0.005% OPHTH SOLUTION 2.5ML BOTTLE. OU SCH (12:36)
[2017-09-13] MEDS: MINERAL OIL/PETROLATUM TOPICAL CREAM 113GM JAR. TP SCH (12:38)
[2017-09-13] MEDS: diazePAM 2 MG TABLET PO SCH ×3 (12:38→21:12)
[2017-09-13] MEDS: VITAMIN E 200 UNIT CAPSULE. PO SCH (12:38)
[2017-09-13 16:33] VITALS: BP 139/88
[2017-09-13] MEDS: AMITRIPTYLINE HCL 25 MG TABLET PO SCH (21:09)
[2017-09-13] MEDS: MELATONIN 3 MG TABLET PO SCH (21:10)
--- NOTE | 2017-09-13 21:27 | PDOC ---
Exam Note: Chris Note: Please also refer to the separate dictated note~for this date of service dictated separately.~Patient seen individually. Discussed the patient with Nursing staff reviewed the chart.~Reviewed interim history and current functioning. Reviewed vital signs,~Labs/ Radiology~and current medications noted below. Continue current treatment with the changes noted in the dictated addendum note Assessment: Vital Signs: Vital Signs Date Time Temp Pulse Resp B/P (MAP) Pulse Ox O2 Delivery O2 Flow Rate FiO2 09/13/17 16:33 97.7 74 18 139/88 (105) 98 09/12/17 06:23 Room Air I&O Intake and Output 09/13/17 07:00 Intake Total 1080 ml Balance 1080 ml Intake Oral 1080 ml # Voids 1 # Bowel Movements 1 Current Medications: Meds: Current Medications Acetaminophen (Tylenol) 650 mg PRN Q6HRS PRN PO PAIN / TEMP Last administered on 08/31/17at 23:06; Start 08/20/17 at 18:30 Al Hydroxide/Mg Hydroxide (Mylanta Plus Xs) 15 ml PRN AFTMEALHC PRN PO DYSPEPSIA; Start 08/20/17 at 18:30 Magnesium Hydroxide (Milk Of Magnesia) 2,400 mg PRN QHS PRN PO CONSTIPATION; Start 08/20/17 at 18:30 Albuterol Sulfate (Ventolin) 2.5 mg PRN DAILY PRN NEB SHORTNESS OF BREATH; Start 08/20/17 at 21:15 Aspirin (Children'S Aspirin) 81 mg DAILY PO Last administered on 09/13/17at 12:34 ; Start 08/21/17 at 09:00 Acetaminophen/ Hydrocodone Bitart (Lortab 7.5/325) 1 tab PRN TID PRN PO PAIN Last administered on 09/06/17at 19:49; Start 08/20/17 at 21:15 Ibuprofen (Motrin) 200 mg BID PO Last administered on 08/22/17at 07:54; Start at 22:00; Stop 08/23/17 at 07:21; Status DC Latanoprost (Xalatan) 1 drop DAILY OU Last administered on 09/13/17at 12:36; Start 08/21/17 at 09:00 Losartan Potassium (Cozaar) 25 mg DAILY PO Last administered on 09/13/17at 12:33 ; Start 08/21/17 at 09:00 Metoprolol Tartrate (Lopressor) 25 mg DAILY PO Last administered on 09/13/17 12 :34; Start 08/21/17 at 09:00 Rivaroxaban (Xarelto) 20 mg DAILY PO Last administered on 09/13/17 12:33; Start 08/21/17 at 09:00 Rivastigmine (Exelon) 1 patch DAILY TD Last administered on 09/13/17 12:35; Start 08/21/17 at 09:00 Vitamin D (Vitamin D3) 2,000 unit DAILY PO Last administered on 09/13/17 12:34 ; Start 08/21/17 at 09:00 Vitamin E 200 unit DAILY PO Last administered on 09/13/17 12:38; Start at 09:00 Memantine (Namenda) 10 mg DAILY PO Last administered on 09/13/17 12:33; Start 08/21/17 at 09:00 Quetiapine Fumarate (SEROquel) 25 mg PRN QHS PRN PO INSOMNIA Last administered on 08/31/17at 23:06; Start 08/20/17 at 21:30; Stop 09/08/17 at 14:59; Status DC Diazepam (Valium) 1.5 mg TID PO Last administered on 08/21/17at 14:06; Start at 14:00; Stop 08/21/17 at 18:51; Status DC Diazepam (Valium) 1 mg TID PO ; Start 08/26/17 at 09:00; Stop 08/26/17 at 09:00 ; Status DC Diazepam (Valium) 0.5 mg TID PO ; Start 08/31/17 at 09:00; Stop 08/31/17 at 09: 00; Status DC Mirtazapine (Remeron) 7.5 mg QHS PO Last administered on 08/21/17at 20:43; Start 08/21/17 at 21:00; Stop 08/22/17 at 18:32; Status DC Diazepam (Valium) 2 mg BID@1400,2100 PO Last administered on 08/26/17at 19:56; Start 08/21/17 at 21:00; Stop 08/27/17 at 09:00; Status DC Diazepam (Valium) 1.5 mg DAILYWBKFT PO Last administered on 08/26/17at 07:49; Start 08/22/17 at 08:00; Stop 08/27/17 at 07:59; Status DC Diazepam (Valium) 1.5 mg BID92 PO Last administered on 08/31/17at 13:30; Start 08/27/17 at 09:00; Stop 09/01/17 at 08:59; Status DC Diazepam (Valium) 2 mg QHS PO Last administered on 08/31/17at 19:24; Start 08/27 at 21:00; Stop 09/01/17 at 21:00; Status DC Mirtazapine (Remeron) 15 mg QHS PO Last administered on 08/23/17at 20:30; Start 08/22/17 at 21:00; Stop 08/24/17 at 18:02; Status DC Quetiapine Fumarate (SEROquel) 12.5 mg TID@0900,1300,1700 PO Last administered on 09/13/17at 17:07; Start 08/23/17 at 09:00 Melatonin 3 mg QHS PO Last administered on 08/31/17at 19:22; Start 08/22/17 at 21:00; Stop 09/01/17 at 18:15; Status DC Olanzapine (ZyPREXA ZYDIS) 2.5 mg PRN Q2HR PRN PO ANXIETY / AGITATION Last administered on 09/09/17 16:20; Start 08/22/17 at 18:30 Amitriptyline HCl (Elavil) 25 mg QHS PO Last administered on 08/28/17at 20:49; Start 08/24/17 at 21:00; Stop 08/29/17 at 18:50; Status DC Potassium Chloride (Klor-Con) 20 meq BIDWMEALS PO Last administered on 17:08; Start 08/28/17 at 19:00 Amitriptyline HCl (Elavil) 50 mg QHS PO Last administered on 09/13/17 21:09; Start 08/29/17 at 21:00 Sertraline HCl (Zoloft) 25 mg DAILY PO ; Start 09/01/17 at 09:00; Stop 09/01/17 at 09:00; Status DC Bupropion HCl (Wellbutrin Xl) 150 mg DAILY PO Last administered on 09/08/17at 11 :19; Start 09/01/17 at 09:00; Stop 09/08/17 at 14:59; Status DC Melatonin 6 mg QHS PO Last administered on 09/13/17at 21:10; Start 09/01/17 at 21 :00 Diazepam (Valium) 1.5 mg 1X ONCE PO Last administered on 09/03/17at 17:18; Start 09/03/17 at 17:15; Stop 09/03/17 at 17:16; Status DC Diazepam (Valium) 1.5 mg 1X ONCE PO ; Start 09/03/17 at 21:00; Stop 09/03/17 at 21:00; Status DC Diazepam (Valium) 1.5 mg TID PO Last administered on 09/08/17at 11:21; Start at 21:00; Stop 09/08/17 at 20:59; Status DC Diazepam (Valium) 1 mg DAILY PO Last administered on 09/13/17at 12:38; Start 09/09 at 09:00; Stop 09/13/17 at 09:01; Status DC Diazepam (Valium) 1.5 mg BID@1400,2100 PO Last administered on 09/13/17at 21:12; Start 09/09/17 at 14:00; Stop 09/13/17 at 21:01; Status DC Diazepam (Valium) 1 mg BID92 PO ; Start 09/14/17 at 09:00; Stop 09/18/17 at 14:01 Diazepam (Valium) 1.5 mg QHS PO ; Start 09/14/17 at 21:00; Stop 09/18/17 at 21:01 Diazepam (Valium) 1 mg TID PO ; Start 09/19/17 at 09:00; Stop 09/23/17 at 21:01 Diazepam (Valium) 0.5 mg DAILY PO ; Start 09/24/17 at 09:00; Stop 09/28/17 at 09 :01 Diazepam (Valium) 1 mg BID@1400,2100 PO ; Start 09/24/17 at 14:00; Stop at 21:01 Diazepam (Valium) 0.5 mg BID92 PO ; Start 09/29/17 at 09:00; Stop 10/03/17 at 14 :01 Diazepam (Valium) 1 mg QHS PO ; Start 09/29/17 at 21:00; Stop 10/03/17 at 21:01 Diazepam (Valium) 0.5 mg TID PO ; Start 10/04/17 at 09:00; Stop 10/08/17 at 21:01 Diazepam (Valium) 0.5 mg BID@1400,2100 PO ; Start 10/09/17 at 14:00; Stop at 21:01 Diazepam (Valium) 0.5 mg QHS PO ; Start 10/14/17 at 21:00; Stop 10/18/17 at 21:01 Hydrocortisone (Hytone) 1 mayelin BID TP Last administered on 09/12/17at 07:59; Start 09/05/17 at 21:00; Stop 09/12/17 at 20:59; Status DC Multi-Ingred Cream/Lotion/Oil/ Oint (Hydrocerin) 1 mayelin DAILY10 TP Last administered on 09/13/17at 12:38; Start 09/05/17 at 21:30 Bupropion HCl (Wellbutrin) 25 mg [id number] PO Last administered on 09/13/17at 21:13 ; Start 09/09/17 at 09:00 Quetiapine Fumarate (SEROquel) 37.5 mg QHS PO Last administered on 09/13/17at 21: 10; Start 09/08/17 at 21:00 Active Scripts Active Reported Valium (Diazepam) 2 Mg Tablet 0.5 Mg PO QHS Valium (Diazepam) 2 Mg Tablet 0.5 Mg PO [id number] Valium (Diazepam) 2 Mg Tablet 0.5 Mg PO TID Valium (Diazepam) 2 Mg Tablet 1 Mg PO QHS Valium (Diazepam) 2 Mg Tablet 0.5 Mg PO BID92 Valium (Diazepam) 2 Mg Tablet 1 Mg PO BID92 Valium (Diazepam) 2 Mg Tablet 0.5 Mg PO DAILY Valium (Diazepam) 2 Mg Tablet 1.5 Mg PO QHS Valium (Diazepam) 2 Mg Tablet 1 Mg PO BID92 Valium (Diazepam) 2 Mg Tablet 1 Mg PO TID Valium (Diazepam) 2 Mg Tablet 1.5 Mg PO BID14,21 Valium (Diazepam) 2 Mg Tablet 1 Mg PO DAILY Valium (Diazepam) 2 Mg Tablet 1.5 Mg PO TID Seroquel (Quetiapine Fumarate) 25 Mg Tablet 12.5 Mg PO TIDAFTMEAL Klor-Con M20 (Potassium Chloride) 20 Meq Tab.er.prt 20 Meq PO BIDWMEALS Zyprexa Zydis (Olanzapine) 5 Mg Tab.rapdis 2.5 Mg PO PRN Q2HR PRN Hydrocerin Lotion (Mineral Oil/I-Prop Myr/Water) 472 Ml Lotion 1 Mayelin TP DAILY10 Melatonin 3 Mg Tablet 3 Mg PO QHS Milk Of Magnesia (Magnesium Hydroxide) 2,400 Mg/10 Ml Oral.susp 2,400 Mg PO PRN QHS PRN Mag-Al Plus Xs Suspension (Mag Hydrox/Al Hydrox/Simeth) 30 Ml Oral.susp 15 Ml PO PRN AFTMEALHC PRN Bupropion Xl (Bupropion Hcl) 150 Mg Tab.er.24h 150 Mg PO DAILY Hydrocortisone-Pramoxine Cream (Hydrocortisone/Pramoxine) 57 Gm Cream..g. 1 Mayelin TP BID Tylenol (Acetaminophen) 325 Mg Tablet 650 Mg PO PRN Q6HRS PRN Amitriptyline Hcl 50 Mg Tablet 50 Mg PO QHS Diazepam 2 Mg Tablet 2 Mg PO TID Xarelto (Rivaroxaban) 10 Mg Tablet 20 Mg PO DAILY Vitamin E (Vitamin E Mixed) 200 Unit Tablet 200 Unit PO DAILY Vitamin D (Cholecalciferol (Vitamin D3)) 2,000 Unit Capsule 2,000 Unit PO DAILY Seroquel (Quetiapine Fumarate) 25 Mg Tablet 25 Mg PO PRN QHS PRN Hydrocodone-Apap 7.5-325 (Hydrocodone Bit/Acetaminophen) 1 Each Tablet 1 Tab PO TID PRN EXELON 9.5mg/24hr (Rivastigmine) 1 Each Patch.td24 1 Patch TD DAILY Namenda (Memantine Hcl) 10 Mg Tablet 10 Mg PO DAILY Metoprolol Tartrate 25 Mg Tablet 25 Mg PO DAILY Losartan Potassium 25 Mg Tablet 25 Mg PO DAILY Xalatan (Latanoprost) 2.5 Ml Drops 1 Drp OU DAILY Ibuprofen 400 Mg Tablet 200 Mg PO BID Aspirin 81 Mg Tab.chew 81 Mg PO DAILY Albuterol Sulfate Neb Soln (Albuterol Sulfate) 2.5 Mg/3 Ml Vial.neb 2.5 Mg NEB PRN DAILY PRN I have reviewed the current psychotropics carefully including drug interactions. Risk benefit ratio favors no change other than as noted in my dictated progress note. Diagnosis: Problems: (1) Encounter for medical screening examination (2) Delusion (3) Confusion (4) Suicidal ideation (5) Anxiety disorder (6) Dementia in Alzheimer's disease with depression (7) Dementia in Alzheimer's disease with delusions (8) Dementia, vascular, with delusions (9) Dementia, vascular, with depression (10) Impulse control disorder KRYSTAL HAHN MD Sep 13, 2017 21:27
--- NOTE | 2017-09-13 23:37 | PN ---
DATE: 09/05/2017 This is a late entry 09/05/2017 covers elements not covered in my initial note 09/05/2017. I met with the patient evening of 09/05/2017. I dictated this note contemporary to my visit on 09/05/2017 from an external line, but of note cannot be traced. I am re-dictating. Per nursing report, the patient remains confused, compliant, pleasant, delusional belief, [place] go [place] the farm, wandering. REVIEW OF SYSTEMS: No CV, , pulmonary, eye, ENT system symptoms on review. Reliability poor. MENTAL STATUS EXAM: Oriented to himself. Insight, judgment, recent and remote memory, attention, concentration, fund of knowledge poor, consistent with his diagnosis mentioned in my initial note. IMPRESSION: Major neurocognitive disorder, Alzheimer, vascular with depression, delusion, behavioral disturbance. Rest unchanged. PLAN: Continue current psychotropics. Adjust further as clinically indicated. KRYSTAL HAHN MD DR: HALINA/namita JOB#: [id number] / [id number]
[2017-09-14] MEDS ORDERED: BUPR75TA6 PO (05:08)
[2017-09-14 05:59] VITALS: BP 119/62
--- NOTE | 2017-09-14 06:07 | PN ---
DATE: 09/12/2017 This is a late entry 09/12/2017 covers elements not covered in my initial note of 09/12/2017. I met with the patient in the evening of 09/12/2017. The patient remains confused, wandering the hallways. No CV, , pulmonary, eye, ENT system symptoms on review. Reliability poor. Reviewed information from Dr. Fisher who covered for me over the past few days. MENTAL STATUS EXAM: Oriented to himself. Insight, judgment, recent and remote memory, attention, concentration, fund of knowledge poor, consistent with his diagnosis. IMPRESSION: Major neurocognitive disorder, Alzheimer, vascular with depression, delusion, behavioral disturbance. Rest unchanged. PLAN: Continue to taper the Valium. Maintain rest unchanged for now. MAN Johnny HAHN MD DR: HALINA/namita JOB#: [id number] / [id number]
[2017-09-14] MEDS: RIVASTIGMINE 9.5MG PATCH. TD SCH (07:51)
[2017-09-14] MEDS: RIVAROXABAN 10 MG TABLET. PO SCH (07:51)
[2017-09-14] MEDS: POTASSIUM CHLORIDE 20 MEQ TABLET.ER. PO SCH (07:51)
[2017-09-14] MEDS: MEMANTINE 10 MG TABLET. PO SCH (07:51)
[2017-09-14] MEDS: ASPIRIN 81 MG TAB.CHEW PO SCH (07:52)
[2017-09-14] MEDS: CHOLECALCIFEROL (VITAMIN D3) 1,000 UNIT TABLET PO SCH (07:52)
[2017-09-14] MEDS: buPROPion 100 MG TABLET PO SCH (07:52)
[2017-09-14] MEDS: LOSARTAN 25 MG TABLET. PO SCH (07:52)
[2017-09-14] MEDS: QUEtiapine 25 MG TABLET. PO SCH (07:53)
[2017-09-14 07:55] VITALS: BP 119/62
[2017-09-14] MEDS: METOPROLOL TART IMMED RELEASE 25 MG TABLET PO SCH (07:55)
[2017-09-14] MEDS: VITAMIN E 200 UNIT CAPSULE. PO SCH (07:56)
[2017-09-14] MEDS: LATANOPROST 0.005% OPHTH SOLUTION 2.5ML BOTTLE. OU SCH (07:57)
[2017-09-14] MEDS ORDERED: diazePAM 2 MG TABLET PO SCH ×2 (09:00→21:00)
[2017-09-14] MEDS: MINERAL OIL/PETROLATUM TOPICAL CREAM 113GM JAR. TP SCH (10:00)
--- NOTE | 2017-09-14 20:08 | PDOC ---
Exam Note: Chris Note: Please also refer to the separate dictated note~for this date of service dictated separately.~Patient seen individually. Discussed the patient with Nursing staff reviewed the chart.~Reviewed interim history and current functioning. Reviewed vital signs,~Labs/ Radiology~and current medications noted below. Continue current treatment with the changes noted in the dictated addendum note Assessment: Vital Signs: Vital Signs Date Time Temp Pulse Resp B/P (MAP) Pulse Ox O2 Delivery O2 Flow Rate FiO2 09/14/17 07:55 62 119/62 09/14/17 05:59 97.3 20 97 09/12/17 06:23 Room Air I&O Intake and Output 09/14/17 07:00 Intake Total 1020 ml Balance 1020 ml Intake Oral 1020 ml Current Medications: Meds: Current Medications Acetaminophen (Tylenol) 650 mg PRN Q6HRS PRN PO PAIN / TEMP Last administered on 08/31/17at 23:06; Start 08/20/17 at 18:30; Stop 09/14/17 at 12:41; Status DC Al Hydroxide/Mg Hydroxide (Mylanta Plus Xs) 15 ml PRN AFTMEALHC PRN PO DYSPEPSIA; Start 08/20/17 at 18:30; Stop 09/14/17 at 12:41; Status DC Magnesium Hydroxide (Milk Of Magnesia) 2,400 mg PRN QHS PRN PO CONSTIPATION; Start 08/20/17 at 18:30; Stop 09/14/17 at 12:41; Status DC Albuterol Sulfate (Ventolin) 2.5 mg PRN DAILY PRN NEB SHORTNESS OF BREATH; Start 08/20/17 at 21:15; Stop 09/14/17 at 12:41; Status DC Aspirin (Children'S Aspirin) 81 mg DAILY PO Last administered on 09/14/17at 07:52 ; Start 08/21/17 at 09:00; Stop 09/14/17 at 12:41; Status DC Acetaminophen/ Hydrocodone Bitart (Lortab 7.5/325) 1 tab PRN TID PRN PO PAIN Last administered on 09/06/17at 19:49; Start 08/20/17 at 21:15; Stop 09/14/17 at 12:41; Status DC Ibuprofen (Motrin) 200 mg BID PO Last administered on 08/22/17at 07:54; Start at 22:00; Stop 08/23/17 at 07:21; Status DC Latanoprost (Xalatan) 1 drop DAILY OU Last administered on 09/14/17 07:57; Start 08/21/17 at 09:00; Stop 09/14/17 at 12:41; Status DC Losartan Potassium (Cozaar) 25 mg DAILY PO Last administered on 09/14/17 07:52 ; Start 08/21/17 at 09:00; Stop 09/14/17 at 12:41; Status DC Metoprolol Tartrate (Lopressor) 25 mg DAILY PO Last administered on 09/14/17 07 :55; Start 08/21/17 at 09:00; Stop 09/14/17 at 12:41; Status DC Rivaroxaban (Xarelto) 20 mg DAILY PO Last administered on 09/14/17 07:51; Start 08/21/17 at 09:00; Stop 09/14/17 at 12:41; Status DC Rivastigmine (Exelon) 1 patch DAILY TD Last administered on 09/14/17 07:51; Start 08/21/17 at 09:00; Stop 09/14/17 at 12:41; Status DC Vitamin D (Vitamin D3) 2,000 unit DAILY PO Last administered on 09/14/17 07:52 ; Start 08/21/17 at 09:00; Stop 09/14/17 at 12:41; Status DC Vitamin E 200 unit DAILY PO Last administered on 09/14/17 07:56; Start at 09:00; Stop 09/14/17 at 12:41; Status DC Memantine (Namenda) 10 mg DAILY PO Last administered on 09/14/17 07:51; Start 08/21/17 at 09:00; Stop 09/14/17 at 12:41; Status DC Quetiapine Fumarate (SEROquel) 25 mg PRN QHS PRN PO INSOMNIA Last administered on 08/31/17at 23:06; Start 08/20/17 at 21:30; Stop 09/08/17 at 14:59; Status DC Diazepam (Valium) 1.5 mg TID PO Last administered on 08/21/17at 14:06; Start at 14:00; Stop 08/21/17 at 18:51; Status DC Diazepam (Valium) 1 mg TID PO ; Start 08/26/17 at 09:00; Stop 08/26/17 at 09:00 ; Status DC Diazepam (Valium) 0.5 mg TID PO ; Start 08/31/17 at 09:00; Stop 08/31/17 at 09: 00; Status DC Mirtazapine (Remeron) 7.5 mg QHS PO Last administered on 08/21/17at 20:43; Start 08/21/17 at 21:00; Stop 08/22/17 at 18:32; Status DC Diazepam (Valium) 2 mg BID@1400,2100 PO Last administered on 08/26/17at 19:56; Start 08/21/17 at 21:00; Stop 08/27/17 at 09:00; Status DC Diazepam (Valium) 1.5 mg [id number] PO Last administered on 08/26/17at 07:49; Start 08/22/17 at 08:00; Stop 08/27/17 at 07:59; Status DC Diazepam (Valium) 1.5 mg [id number] PO Last administered on 08/31/17at 13:30; Start 08/27/17 at 09:00; Stop 09/01/17 at 08:59; Status DC Diazepam (Valium) 2 mg QHS PO Last administered on 08/31/17at 19:24; Start 08/27 at 21:00; Stop 09/01/17 at 21:00; Status DC Mirtazapine (Remeron) 15 mg QHS PO Last administered on 08/23/17at 20:30; Start 08/22/17 at 21:00; Stop 08/24/17 at 18:02; Status DC Quetiapine Fumarate (SEROquel) 12.5 mg TID@0900,1300,1700 PO Last administered on 09/14/17at 07:53; Start 08/23/17 at 09:00; Stop 09/14/17 at 12:41; Status DC Melatonin 3 mg QHS PO Last administered on 08/31/17at 19:22; Start 08/22/17 at 21:00; Stop 09/01/17 at 18:15; Status DC Olanzapine (ZyPREXA ZYDIS) 2.5 mg PRN Q2HR PRN PO ANXIETY / AGITATION Last administered on 09/09/17at 16:20; Start 08/22/17 at 18:30; Stop 09/14/17 at 12:41; Status DC Amitriptyline HCl (Elavil) 25 mg QHS PO Last administered on 08/28/17at 20:49; Start 08/24/17 at 21:00; Stop 08/29/17 at 18:50; Status DC Potassium Chloride (Klor-Con) 20 meq BIDWMEALS PO Last administered on at 07:51; Start 08/28/17 at 19:00; Stop 09/14/17 at 12:41; Status DC Amitriptyline HCl (Elavil) 50 mg QHS PO Last administered on 09/13/17at 21:09; Start 08/29/17 at 21:00; Stop 09/14/17 at 12:41; Status DC Sertraline HCl (Zoloft) 25 mg DAILY PO ; Start 09/01/17 at 09:00; Stop 09/01/17 at 09:00; Status DC Bupropion HCl (Wellbutrin Xl) 150 mg DAILY PO Last administered on 09/08/17at 11 :19; Start 09/01/17 at 09:00; Stop 09/08/17 at 14:59; Status DC Melatonin 6 mg QHS PO Last administered on 09/13/17at 21:10; Start 09/01/17 at 21 :00; Stop 09/14/17 at 12:41; Status DC Diazepam (Valium) 1.5 mg 1X ONCE PO Last administered on 09/03/17at 17:18; Start 09/03/17 at 17:15; Stop 09/03/17 at 17:16; Status DC Diazepam (Valium) 1.5 mg 1X ONCE PO ; Start 09/03/17 at 21:00; Stop 09/03/17 at 21:00; Status DC Diazepam (Valium) 1.5 mg TID PO Last administered on 09/08/17at 11:21; Start at 21:00; Stop 09/08/17 at 20:59; Status DC Diazepam (Valium) 1 mg DAILY PO Last administered on 09/13/17at 12:38; Start 09/09 at 09:00; Stop 09/13/17 at 09:01; Status DC Diazepam (Valium) 1.5 mg BID@1400,2100 PO Last administered on 09/13/17at 21:12; Start 09/09/17 at 14:00; Stop 09/13/17 at 21:01; Status DC Diazepam (Valium) 1 mg [id number] PO Last administered on 09/14/17at 07:55; Start 09/14 at 09:00; Stop 09/14/17 at 12:41; Status DC Diazepam (Valium) 1.5 mg QHS PO ; Start 09/14/17 at 21:00; Stop 09/14/17 at 21:00 ; Status DC Diazepam (Valium) 1 mg TID PO ; Start 09/19/17 at 09:00; Stop 09/19/17 at 09:00 ; Status DC Diazepam (Valium) 0.5 mg DAILY PO ; Start 09/24/17 at 09:00; Stop 09/24/17 at 09 :00; Status DC Diazepam (Valium) 1 mg BID@1400,2100 PO ; Start 09/24/17 at 14:00; Stop at 14:00; Status DC Diazepam (Valium) 0.5 mg [id number] PO ; Start 09/29/17 at 09:00; Stop 09/29/17 at 09 :00; Status DC Diazepam (Valium) 1 mg QHS PO ; Start 09/29/17 at 21:00; Stop 09/29/17 at 21:00 ; Status DC Diazepam (Valium) 0.5 mg TID PO ; Start 10/04/17 at 09:00; Stop 10/04/17 at 09: 00; Status DC Diazepam (Valium) 0.5 mg BID@1400,2100 PO ; Start 10/09/17 at 14:00; Stop at 14:00; Status DC Diazepam (Valium) 0.5 mg QHS PO ; Start 10/14/17 at 21:00; Stop 10/14/17 at 21:00 ; Status DC Hydrocortisone (Hytone) 1 mayelin BID TP Last administered on 09/12/17at 07:59; Start 09/05/17 at 21:00; Stop 09/12/17 at 20:59; Status DC Multi-Ingred Cream/Lotion/Oil/ Oint (Hydrocerin) 1 mayelin DAILY10 TP Last administered on 09/13/17at 12:38; Start 09/05/17 at 21:30; Stop 09/14/17 at 12:41; Status DC Bupropion HCl (Wellbutrin) 25 mg [id number] PO Last administered on 09/14/17at 07:52 ; Start 09/09/17 at 09:00; Stop 09/14/17 at 12:41; Status DC Quetiapine Fumarate (SEROquel) 37.5 mg QHS PO Last administered on 09/13/17at 21: 10; Start 09/08/17 at 21:00; Stop 09/14/17 at 12:41; Status DC Active Scripts Active Reported Bupropion Hcl 75 Mg Tablet 25 Mg PO TID@929 Valium (Diazepam) 2 Mg Tablet 0.5 Mg PO QHS 1.5 MG TID X 5 DAYS 1.5 MG BID +1 MG DAILY X 5 DAYS 1 MG BID +1.5 MG DAILY X 5 DAYS 09/14-09/18 1 MG TID X 5 DAYS 09/19-09/23 1 MG BID +0.5 MG DAILY X 5 DAYS 09/24-09/28 0.5 MG BID +1 MG DAILY 09/29-10/03 0.5 MG TID X 5 DAYS 10/04-10/08 0.5 MG BID X 5 DAYS 10/09-10/13 0.5 MG DAILY 10/14-10/18 START DATE: 10/14/17 START TIME: 2099 STOP DATE: 10/18/17 STOP TIME: 2100 Valium (Diazepam) 2 Mg Tablet 0.5 Mg PO [id number] 1.5 MG TID X 5 DAYS 1.5 MG BID +1 MG DAILY X 5 DAYS 1 MG BID +1.5 MG DAILY X 5 DAYS 09/14-09/18 1 MG TID X 5 DAYS 09/19-09/23 1 MG BID +0.5 MG DAILY X 5 DAYS 09/24-09/28 0.5 MG BID +1 MG DAILY 09/29-10/03 0.5 MG TID X 5 DAYS 10/04-10/08 0.5 MG BID X 5 DAYS 10/09-10/13 0.5 MG DAILY START DATE: 10/09/17 START TIME: 1399 STOP DATE: 10/13/17 STOP TIME: 2100 Valium (Diazepam) 2 Mg Tablet 0.5 Mg PO TID 1.5 MG TID X 5 DAYS 1.5 MG BID +1 MG DAILY X 5 DAYS 1 MG BID +1.5 MG DAILY X 5 DAYS 09/14-09/18 1 MG TID X 5 DAYS 09/19-09/23 1 MG BID +0.5 MG DAILY X 5 DAYS 09/24-09/28 0.5 MG BID +1 MG DAILY 09/29-10/03 0.5 MG TID X 5 DAYS 10/04-10/08 0.5 MG BID X 5 DAYS 10/09-10/13 0.5 MG DAILY START DATE: 10/04/17 START TIME: 09 STOP DATE: 10/08/17 STOP TIME: 2100 Valium (Diazepam) 2 Mg Tablet 1 Mg PO QHS 1.5 MG TID X 5 DAYS 1.5 MG BID +1 MG DAILY X 5 DAYS 1 MG BID +1.5 MG DAILY X 5 DAYS 09/14-09/18 1 MG TID X 5 DAYS 09/19-09/23 1 MG BID +0.5 MG DAILY X 5 DAYS 09/24-09/28 0.5 MG BID +1 MG DAILY 09/29-10/03 0.5 MG TID X 5 DAYS 10/04-10/08 0.5 MG BID X 5 DAYS 10/09-10/13 0.5 MG DAILY START DATE: 09/29/17 START TIME: 2099 STOP DATE: 10/03/17 STOP TIME: 2100 Valium (Diazepam) 2 Mg Tablet 0.5 Mg PO [id number] 1.5 MG TID X 5 DAYS 1.5 MG BID +1 MG DAILY X 5 DAYS 1 MG BID +1.5 MG DAILY X 5 DAYS 09/14-09/18 1 MG TID X 5 DAYS 09/19-09/23 1 MG BID +0.5 MG DAILY X 5 DAYS 09/24-09/28 0.5 MG BID +1 MG DAILY 09/29-10/03 0.5 MG TID X 5 DAYS 10/04-10/08 0.5 MG BID X 5 DAYS 10/09-10/13 0.5 MG DAILY START DATE: 09/29/17 START TIME: 899 STOP DATE: 10/03/17 STOP TIME: 1399 Valium (Diazepam) 2 Mg Tablet 1 Mg PO [id number] 1.5 MG TID X 5 DAYS 1.5 MG BID +1 MG DAILY X 5 DAYS 1 MG BID +1.5 MG DAILY X 5 DAYS 09/14-09/18 1 MG TID X 5 DAYS 09/19-09/23 1 MG BID +0.5 MG DAILY X 5 DAYS 09/24-09/28 0.5 MG BID +1 MG DAILY 09/29-10/03 0.5 MG TID X 5 DAYS 10/04-10/08 0.5 MG BID X 5 DAYS 10/09-10/13 0.5 MG DAILY START DATE: 09/24/17 START TIME: 1399 STOP DATE: 09/28/17 STOP TIME: 2100 Valium (Diazepam) 2 Mg Tablet 0.5 Mg PO DAILY 1.5 MG TID X 5 DAYS 1.5 MG BID +1 MG DAILY X 5 DAYS 1 MG BID +1.5 MG DAILY X 5 DAYS 09/14-09/18 1 MG TID X 5 DAYS 09/19-09/23 1 MG BID +0.5 MG DAILY X 5 DAYS 09/24-09/28 0.5 MG BID +1 MG DAILY 09/29-10/03 0.5 MG TID X 5 DAYS 10/04-10/08 0.5 MG BID X 5 DAYS 10/09-10/13 0.5 MG DAILY START DATE: 09/24/17 START TIME: 899 STOP DATE: 09/28/17 STOP TIME: 900 Valium (Diazepam) 2 Mg Tablet 1.5 Mg PO QHS 1.5 MG TID X 5 DAYS 1.5 MG BID +1 MG DAILY X 5 DAYS 1 MG BID +1.5 MG DAILY X 5 DAYS 09/14-09/18 1 MG TID X 5 DAYS 09/19-09/23 1 MG BID +0.5 MG DAILY X 5 DAYS 09/24-09/28 0.5 MG BID +1 MG DAILY 09/29-2/25 0.5 MG TID X 5 DAYS 10/04-10/08 0.5 MG BID X 5 DAYS 10/09-10/13 0.5 MG DAILY START DATE: 09/14/17 START TIME: 2099 STOP DATE: 09/18/17 STOP TIME: 2100 Valium (Diazepam) 2 Mg Tablet 1 Mg PO [id number] 1.5 MG TID X 5 DAYS 1.5 MG BID +1 MG DAILY X 5 DAYS 1 MG BID +1.5 MG DAILY X 5 DAYS 09/14-09/18 1 MG TID X 5 DAYS 09/19-09/23 1 MG BID +0.5 MG DAILY X 5 DAYS 09/24-09/28 0.5 MG BID +1 MG DAILY 09/29-10/03 0.5 MG TID X 5 DAYS 10/04-10/08 0.5 MG BID X 5 DAYS 10/09-10/13 0.5 MG DAILY START DATE: 09/14/17 START TIME: 899 STOP DATE: 09/18/17 STOP TIME: 1400 Valium (Diazepam) 2 Mg Tablet 1 Mg PO TID 1.5 MG TID X 5 DAYS 1.5 MG BID +1 MG DAILY X 5 DAYS 1 MG BID +1.5 MG DAILY X 5 DAYS 09/14-09/18 1 MG TID X 5 DAYS 09/19-09/23 1 MG BID +0.5 MG DAILY X 5 DAYS 09/24-09/28 0.5 MG BID +1 MG DAILY 09/29-10/03 0.5 MG TID X 5 DAYS 10/04-10/08 0.5 MG BID X 5 DAYS 10/09-10/13 0.5 MG DAILY START DATE: 09/19/17 START TIME: 899 STOP DATE: 09/23/17 STOP TIME: 2100 Seroquel (Quetiapine Fumarate) 25 Mg Tablet 12.5 Mg PO TID@0900,1300,1700 Klor-Con M20 (Potassium Chloride) 20 Meq Tab.er.prt 20 Meq PO BIDWMEALS Zyprexa Zydis (Olanzapine) 5 Mg Tab.rapdis 2.5 Mg PO PRN Q2HR PRN Maximum dose 10 mg in 24 hours Hydrocerin Lotion (Mineral Oil/I-Prop Myr/Water) 472 Ml Lotion 1 Mayelin TP DAILY10 Melatonin 3 Mg Tablet 6 Mg PO QHS Milk Of Magnesia (Magnesium Hydroxide) 2,400 Mg/10 Ml Oral.susp 2,400 Mg PO PRN QHS PRN Mag-Al Plus Xs Suspension (Mag Hydrox/Al Hydrox/Simeth) 30 Ml Oral.susp 15 Ml PO PRN AFTMEALHC PRN Tylenol (Acetaminophen) 325 Mg Tablet 650 Mg PO PRN Q6HRS PRN Amitriptyline Hcl 50 Mg Tablet 50 Mg PO QHS Xarelto (Rivaroxaban) 10 Mg Tablet 20 Mg PO DAILY Vitamin E (Vitamin E Mixed) 200 Unit Tablet 200 Unit PO DAILY Vitamin D (Cholecalciferol (Vitamin D3)) 2,000 Unit Capsule 2,000 Unit PO DAILY Seroquel (Quetiapine Fumarate) 25 Mg Tablet 37.5 Mg PO QHS Hydrocodone-Apap 7.5-325 (Hydrocodone Bit/Acetaminophen) 1 Each Tablet 1 Tab PO TID PRN EXELON 9.5mg/24hr (Rivastigmine) 1 Each Patch.td24 1 Patch TD DAILY Namenda (Memantine Hcl) 10 Mg Tablet 10 Mg PO DAILY Metoprolol Tartrate 25 Mg Tablet 25 Mg PO DAILY Losartan Potassium 25 Mg Tablet 25 Mg PO DAILY Xalatan (Latanoprost) 2.5 Ml Drops 1 Drp OU DAILY Aspirin 81 Mg Tab.chew 81 Mg PO DAILY Albuterol Sulfate Neb Soln (Albuterol Sulfate) 2.5 Mg/3 Ml Vial.neb 2.5 Mg NEB PRN DAILY PRN I have reviewed the current psychotropics carefully including drug interactions. Risk benefit ratio favors no change other than as noted in my dictated progress note. 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
--- NOTE | 2017-09-15 00:29 | PN ---
DATE: 09/13/2017 This is a late entry, covers the elements not covered in my initial note 09/13/2017. SUBJECTIVE: I met with the patient in the evening of 09/13/2017. The patient slept 3-1/4 hours the previous evening, slept until noon, his sleep, compliant with medications, confused, and wanders the hallways. REVIEW OF SYSTEMS: No CV, , pulmonary, eye, ENT system symptoms on review. Reliability poor. MENTAL STATUS EXAM: Oriented to himself. Insight, judgment, recent, remote memory, attention, concentration, fund of knowledge poor, consistent with his diagnosis as mentioned in my initial note. IMPRESSION: Major neurocognitive disorder, Alzheimer, vascular with depression, delusion, behavioral disturbance. Rest unchanged. PLAN: Continue current psychotropics. Transition to a lower level of care in the next day or two. MAN Johnny HAHN MD DR: HALINA/namita JOB#: [id number] / [id number]
--- NOTE | 2017-09-15 18:58 | DS ---
DATE OF DISCHARGE: 09/14/2017 DISCHARGE SUMMARY/PSYCHIATRIC PROGRESS NOTE This late entry 09/14/2017 covers elements, not covered in my initial note 09/14/2017. REASON FOR ADMISSION: Please refer to the admission history for details. HISTORY OF PRESENT ILLNESS: Briefly, the patient is an 82-year-old male referred from home via the Emergency Room where he presented with his on account of increased confusion, agitation, hallucinations at night, delusional, thinks someone is breaking into the house. He had a poor appetite, behaviors were deemed dangerous, out of control, unmanageable at home with his and he was admitted for inpatient psychiatric stabilization. SIGNIFICANT FINDINGS AND CLINICAL COURSE: Following admission, the patient was seen daily individually by myself, followed medically per Dr. Otero/Dr. Troy. He remained confused, agitated with some sleep and appetite disturbance. Adjustments were made in the psychotropics. Valium was tapered and he seemed to respond to a combination of amitriptyline 50 mg at bedtime since he failed all other interventions for his marked insomnia and even on the amitriptyline, he was sleeping 3-4 hours a night, making up some during the day. He is also on Namenda 10 mg daily, Exelon patch 9.5 mg daily, Seroquel 37.5 mg at bedtime and 12.5 mg 3 times a day, melatonin 6 mg at bedtime, Wellbutrin-XL and Zyprexa p.r.n. prior to discharge 09/14/2017. REVIEW OF SYSTEMS: No CV, , pulmonary, eye, ENT system symptoms on review. Reliability poor. MENTAL STATUS EXAM: Oriented to himself. Insight, judgment, recent and remote memory, attention, concentration, fund of knowledge poor, consistent with his diagnosis. CONDITION AT DISCHARGE: Improved. FINAL DIAGNOSES: Major neurocognitive disorder, Alzheimer, vascular with depression, delusion, behavioral disturbance; anxiety disorder, unspecified; impulse control disorder, unspecified. Rest unchanged from admission. DISCHARGE MEDICATIONS: Please refer to the MRAD. DISCHARGE INSTRUCTIONS: Outpatient psychiatric and medical followup at the shelter. MAN Johnny HAHN MD DR: HALINA/namita JOB#: [id number] / [id number]
[2017-09-19] MEDS ORDERED: diazePAM 2 MG TABLET PO SCH (09:00)
[2017-09-24] MEDS ORDERED: diazePAM 2 MG TABLET PO SCH ×2 (09:00→14:00)
[2017-09-29] MEDS ORDERED: diazePAM 2 MG TABLET PO SCH ×2 (09:00→21:00)
[2017-10-04] MEDS ORDERED: diazePAM 2 MG TABLET PO SCH (09:00)
[2017-10-09] MEDS ORDERED: diazePAM 2 MG TABLET PO SCH (14:00)
[2017-10-14] MEDS ORDERED: diazePAM 2 MG TABLET PO SCH (21:00)
== END 2017-09-14 11:30 | DRG 884 ==
LOC: ER 14:26 → GEROPSY 17:28
PROVIDERS: ADMIT Psychiatry & Neurology Psychiatry; ATTEND Psychiatry & Neurology Psychiatry
DX: F01.51 Vascular dementia, unspecified severity, with behavioral disturbance (principal); G30.9 Alzheimer's disease, unspecified; R45.851 Suicidal ideations; F02.81 Dementia in other diseases classified elsewhere, unspecified severity, with behavioral disturbance; F13.20 Sedative, hypnotic or anxiolytic dependence, uncomplicated; F22 Delusional disorders; F32.9 Major depressive disorder, single episode, unspecified; F41.9 Anxiety disorder, unspecified; F63.9 Impulse disorder, unspecified; G47.00 Insomnia, unspecified; I10 Essential (primary) hypertension; Z66 Do not resuscitate; Z88.6 Allergy status to analgesic agent; Z88.1 Allergy status to other antibiotic agents; Z88.2 Allergy status to sulfonamides; Z88.8 Allergy status to other drugs, medicaments and biological substances; Z91.83 Wandering in diseases classified elsewhere
CPT/HCPCS: 36415; 71045; 80048; 80053; 80061; 80307; 81001; 83036; 83540; 83550; 83735; 84436; 84443; 84480; 85025; 86593; 93005; 97161; 99285-25; G0479